=== PATIENT | male | born 1945 | race Native Hawaiian/Other Pacific Islander ===

== ENCOUNTER 2018-10-08 19:12 | Inpatient (IN) | payer MEDICARE, BC, SELFPAY ==
[2018-10-08] VITALS (9 sets, daily range): BP systolic 109–132; BP diastolic 68–91; PULSE 99–145; RESP 17–28; TEMP 36.9–37.5; O2SAT 89–98; BMI 31.6
--- NOTE | 2018-10-08 19:32 | DI.RAD.S_ITS ---
PROCEDURE: XR CHEST 1V INDICATIONS: chest pain TECHNIQUE: One view of the chest was acquired. COMPARISON: [facility], , CHEST 1 VIEW, 01/25/2018, 15:56. FINDINGS: Surgical changes and devices: Median sternotomy. Lungs and pleura: No pneumothorax. Small left pleural effusion. Moderate patchy air space opacity within the right mid and lower lung as well the left lung base. Mediastinum: Mediastinal contours appear normal. Heart size is normal. Bones and chest wall: No suspicious bony lesions. Overlying soft tissues appear unremarkable. IMPRESSION: 1. Multifocal pneumonia. Follow up plain films of the chest are recommended to ensure resolution, and to exclude underlying or central malignancy. Dictated by: Lewis Kapadia M.D. on 10/08/2018 at 19:57 Approved by: Lewis Kapadia M.D. on 10/08/2018 at 19:58
--- NOTE | 2018-10-08 19:50 | ED.SOB ---
HPI - SOB/Dyspnea General Chief Complaint: Shortness of Breath/Dyspnea Stated Complaint: SOB Time Seen by Provider: 10/08/18 19:43 Source: patient and family Mode of arrival: ambulatory Limitations: no limitations History of Present Illness Patient is a 73-year-old male with a significant coronary history also with history of pulmonary hypertension here for evaluation of approximately 2-3 days of dyspnea on exertion and coughing. Did have a fever a couple days ago greater than 101. No fever today. Has having a productive cough. No chest pain. He is in atrial fibrillation but states that he is in persistent AFib. States that he is currently taking his medications. Does not have home oxygen requirement. Related Data Home Medications Medication Instructions Recorded Confirmed oxycodone [OxyContin] 10 mg PO TID #0 03/24/17 10/08/18 potassium chloride [Klor-Con 8] 20 meq PO BID #0 03/24/17 10/08/18 warfarin [Coumadin] 2.5 mg PO QDAY #0 03/24/17 10/08/18 atorvastatin 80 mg tablet 80 mg PO DAILY 90 Days #90 tab 08/08/18 10/08/18 escitalopram 10 mg tablet 10 mg PO DAILY 90 Days #90 tab 08/08/18 10/08/18 furosemide 40 mg tablet 40 mg PO BID 90 Days #45 tab 08/08/18 10/08/18 metoprolol succinate ER 50 mg 50 mg PO BID 45 Days #90 tab 08/08/18 10/08/18 tablet,extended release 24 hr Allergies Allergy/AdvReac Type Severity Reaction Status Date / Time cyclobenzaprine Allergy Unknown Verified 08/08/18 11:17 [facility] Review of Systems Constitutional Reports fever(s) and Denies headache(s) ENT Ears, Nose, Mouth, and Throat: Denies headache(s) and Denies throat swelling Cardiovascular Denies chest pain, Denies leg edema, Reports dyspnea and Reports dyspnea on exertion Respiratory Reports dyspnea, Reports dyspnea on exertion and Denies wheezing Gastrointestinal Gastrointestinal: Denies abdominal pain and Denies change in bowel habits Genitourinary Denies dysuria and Denies flank pain Musculoskeletal Denies myalgias and Denies arthralgias Integumentary/Breasts Denies rash Neurologic Denies behavioral changes and Denies headache(s) Psychiatric Denies behavioral changes Hematologic/Lymphatic Comments: Currently taking Coumadin Allergic/Immunologic Denies throat swelling and Denies wheezing PFSH Medical History Atrial fibrillation, chronic (Acute) Coronary artery disease (Acute) 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) Former smoker, stopped smoking in distant past (Acute) History of pneumonia (Acute) Hyperlipidemia (Acute) Lumbar stenosis without neurogenic claudication (Acute) Pulmonary hypertension (Acute) Surgical History History of mitral valve replacement with mechanical valve (Acute) History of shoulder surgery (Acute) Status post coronary artery bypass graft (Acute) Social History household members: spouse Smoking Status: Former smoker Exam Initial Vital Signs Initial Vital Signs: Vital Signs Temperature 99.0 F 10/08/18 19:15 Pulse Rate 145 H 10/08/18 19:15 Respiratory Rate 28 H 10/08/18 19:15 Blood Pressure 132/84 10/08/18 19:15 Pulse Oximetry 89 L 10/08/18 19:15 Const General: cooperative, well developed, well groomed, No acute distress and ill appearing Orientation: alert, awake and oriented x3 HENMT Head: normal to inspection and normocephalic Resp Effort & Inspection: normal respiratory effort, cough, not labored, no pursed lip breathing, respiratory distress, no retractions, tachypneic, no tripod positioning and no use of accessory muscles Auscultation: rhonchi Cardio Rate: tachycardic Rhythm: abnormal rhythm irregularly irregular Heart Sounds: murmur Pulses: radial pulses present GI Inspection: non-distended Palpation: soft, No firm and No tender Back/Spine/Pelvis Back: No CVA tenderness Skin Lesions: no lesions Rashes: no rashes Other: Well-healed midline sternal surgical scar Neuro General: alert, awake and oriented x3 Cognition: normal cognition Speech: speech normal Extrem General: normal to inspection and capillary refill normal Psych Appearance: grossly normal and well kempt Course Orders Ordered: ED Orders 10/08/18 21:31 Education, smoking cessation ONGOING 10/08/18 21:40 Consult to Dietitian, Adult Routine 10/08/18 21:41 Consult to Discharge Planning Routine Consult to Physical Therapy Evaluate & Treat 10/08/18 21:43 Consult to Respiratory Therapy Evaluate & Treat 10/08/18 21:57 Sputum Induction and collectio Now 10/08/18 22:00 EKG-12 Lead Urgent 10/08/18 23:55 Lactate 4HR (Lactic Acid Rflx) Stat 10/09/18 05:00 Basic Metabolic Panel DAILY Complete Blood Count AUTO DIFF DAILY 10/10/18 05:00 Basic Metabolic Panel DAILY Complete Blood Count AUTO DIFF DAILY 10/11/18 05:00 Basic Metabolic Panel DAILY Complete Blood Count AUTO DIFF DAILY 10/12/18 05:00 Basic Metabolic Panel DAILY Complete Blood Count AUTO DIFF DAILY 10/13/18 05:00 Basic Metabolic Panel DAILY Complete Blood Count AUTO DIFF DAILY Acetaminophen (Tylenol) 650 mg PO Q6HR PRN PRN Reason: As Needed for Fever/Mild Pain Al Hydrox/Mg Hydrox/Simethicone (Maalox Plus) 30 ml PO Q6HR PRN PRN Reason: Dyspepsia Albuterol (Ventolin) 2.5 mg INH [id number] PRN PRN Reason: Shortness Of Breath Albuterol/Ipratropium (Duoneb) 3 ml INH [id number] [facility] Last Admin: 10/08/18 23:27 Dose: 3 ml Atorvastatin Calcium (Lipitor) 80 mg PO DAILY [facility] Bisacodyl (Dulcolax) 10 mg PO DAILY PRN PRN Reason: Constipation Calcium Carbonate (Tums) 1,000 mg PO Q4HR PRN PRN Reason: Dyspepsia Diltiazem HCl (Cardizem) 30 mg PO Q6HR [facility] Last Admin: 10/09/18 03:32 Dose: 30 mg Docusate Sodium (Colace) 100 mg PO BID [facility] Escitalopram Oxalate (Lexapro) 10 mg PO DAILY [facility] Furosemide (Lasix) 40 mg PO BID [facility] Last Admin: 10/08/18 23:53 Dose: 40 mg Sodium Chloride (Normal Saline 0.9%) 1,000 mls @ 125 mls/hr IV CONT [facility] Last Infusion: 10/09/18 01:47 Dose: 21 mls/hr Infusion: 10/08/18 21:51 Dose: 125 mls/hr Admin: 10/08/18 20:32 Dose: 125 mls/hr Meropenem 1 gm/ Sodium (Chloride) 100 mls @ 200 mls/hr IV Q12H [facility] Last Admin: 10/09/18 00:20 Dose: 200 mls/hr Metoprolol Succinate (Toprol Xl) 50 mg PO BID [facility] Last Admin: 10/08/18 23:51 Dose: 50 mg Naloxone HCl (Narcan) 0.2 mg IV Q2MIN PRN PRN Reason: Opiate Reversal Oxycodone HCl (Percolone) 10 mg PO Q6HR PRN PRN Reason: Pain, Severe (7-10) Last Admin: 10/09/18 00:11 Dose: 10 mg Potassium Chloride (Klor-Con M10) 10 meq PO BID [facility] Last Admin: 10/09/18 00:11 Dose: 10 meq Promethazine HCl (Phenadoz) 12.5 mg ME Q6HR PRN PRN Reason: Nausea And Vomiting Warfarin Sodium (Coumadin) 2.5 mg PO 1700 [facility] Warfarin Sodium (Coumadin) 1.25 mg PO 1700 [facility] Discontinued Medications Levofloxacin (Levaquin) 750 mg in 150 mls @ 100 mls/hr IV NOW ONE Stop: 10/08/18 21:19 Last Infusion: 10/08/18 21:29 Dose: 0 mls/hr Admin: 10/08/18 19:56 Dose: 100 mls/hr Piperacillin/Tazobactam/Dextrose (Zosyn) 4.5 gm in 100 mls @ 200 mls/hr IV NOW ONE Stop: 10/09/18 01:42 Last Admin: 10/09/18 01:49 Dose: 200 mls/hr Potassium Chloride (Klor-Con 8) 8 meq PO BID [facility] Last Admin: 10/09/18 01:37 Dose: Not Given Potassium Chloride (Klor-Con 8) 10 meq PO BID [facility] Last Admin: 10/09/18 01:38 Dose: Not Given Warfarin Sodium (Coumadin) 1.25 mg PO SEEINSTR [facility] Warfarin Sodium (Coumadin) 1.25 mg PO NOW ONE Stop: 10/09/18 00:16 Last Admin: 10/09/18 00:10 Dose: 1.25 mg Vital Signs - 8 hr 10/08/18 22:00 10/08/18 23:16 10/08/18 23:40 Temperature 98.4 F 99.5 F Pulse Rate 112 H 131 H Respiratory Rate 22 20 Blood Pressure 128/91 H 112/68 Pulse Oximetry 98 97 97 10/08/18 23:51 10/09/18 01:49 10/09/18 01:58 Temperature Pulse Rate 127 H 115 H Respiratory Rate Blood Pressure 122/68 134/92 H Pulse Oximetry 10/09/18 03:32 Temperature Pulse Rate 114 H Respiratory Rate Blood Pressure Pulse Oximetry MDM - SOB/Dyspnea Medical Records Attestation: I reviewed the patient's medical records. Lab Data Attestation: I reviewed the patient's lab results. Result diagrams: 10/08/18 19:45 10/08/18 19:45 Lab Results 10/08/18 10/08/18 10/08/18 Range/Units 19:45 19:45 19:45 WBC 9.5 (4.5-11.0) X10^3/uL RBC 4.45 L (4.5-5.9) X10^6/uL Hgb 12.4 L (13.5-17.5) g/dL Hct 38.2 L (41-53) % MCV 85.8 (80-100) fL MCH 27.8 (26-34) PG MCHC 32.4 (30-36) % RDW 17.0 H (11.6-14.8) % Plt Count 280 (150-400) X10^3/uL Neut % (Auto) 83.1 H (50-75) % Lymph % (Auto) 8.3 L (25-40) % [place] % (Auto) 8.2 (3-14) % Eos % (Auto) 0.2 L (2-4) % Baso % (Auto) 0.2 (0-2) % Neut # (Auto) 7900 H (2475-8144) /uL PT 26.3 H (10.1-12.7) SECONDS INR 2.3 H (0.9-1.3) APTT 51 H (26.4-36.2) SECONDS Sodium 138 (137-145) mmol/L Potassium 3.9 (3.4-5.1) mmol/L Chloride 100 (98-107) mmol/L Carbon Dioxide 25 (22-32) mmol/L BUN 20 (9-20) mg/dL Creatinine 1.40 H (0.66-1.25) mg/dL Estimated GFR 49.7 L (>60) mL/min BUN/Creatinine Ratio 14.3 (6-22) Glucose 157 H (80-110) mg/dL Lactate (0.7-2.1) mmol/L Calcium 8.5 (8.4-10.2) mg/dL Phosphorus (2.3-3.7) mg/dL Magnesium (1.6-2.3) mg/dL Total Bilirubin 0.8 (0.2-1.3) mg/dL AST 58 (17-59) IU/L ALT 28 (21-72) IU/L Alkaline Phosphatase 236 H (38-126) U/L Total Creatine Kinase 119 (55-170) U/L CK-MB (CK-2) 0.52 (<2.37) ng/mL CK-MB (CK-2) Rel Index 0.4 L (1.5-5.0) % Troponin I 0.013 (0.01-0.034) ng/mL B-Natriuretic Peptide 428 H (<100) Total Protein 8.0 (6.3-8.2) g/dL Albumin 3.9 (3.5-5.0) g/dL Globulin 4.1 (1.7-4.1) g/dL Albumin/Globulin Ratio 1.0 (1.0-2.8) Lipase 172 (23-300) U/L Procalcitonin (<0.5) ng/mL 10/08/18 10/08/18 10/08/18 Range/Units 19:45 19:45 19:45 WBC (4.5-11.0) X10^3/uL RBC (4.5-5.9) X10^6/uL Hgb (13.5-17.5) g/dL Hct (41-53) % MCV (80-100) fL MCH (26-34) PG MCHC (30-36) % RDW (11.6-14.8) % Plt Count (150-400) X10^3/uL Neut % (Auto) (50-75) % Lymph % (Auto) (25-40) % [place] % (Auto) (3-14) % Eos % (Auto) (2-4) % Baso % (Auto) (0-2) % Neut # (Auto) (4526-2796) /uL PT (10.1-12.7) SECONDS INR (0.9-1.3) APTT (26.4-36.2) SECONDS Sodium (137-145) mmol/L Potassium (3.4-5.1) mmol/L Chloride (98-107) mmol/L Carbon Dioxide (22-32) mmol/L BUN (9-20) mg/dL Creatinine (0.66-1.25) mg/dL Estimated GFR (>60) mL/min BUN/Creatinine Ratio (6-22) Glucose (80-110) mg/dL Lactate 2.2 H (0.7-2.1) mmol/L Calcium (8.4-10.2) mg/dL Phosphorus 3.9 H (2.3-3.7) mg/dL Magnesium 2.2 (1.6-2.3) mg/dL Total Bilirubin (0.2-1.3) mg/dL AST (17-59) IU/L ALT (21-72) IU/L Alkaline Phosphatase (38-126) U/L Total Creatine Kinase (55-170) U/L CK-MB (CK-2) (<2.37) ng/mL CK-MB (CK-2) Rel Index (1.5-5.0) % Troponin I (0.01-0.034) ng/mL B-Natriuretic Peptide (<100) Total Protein (6.3-8.2) g/dL Albumin (3.5-5.0) g/dL Globulin (1.7-4.1) g/dL Albumin/Globulin Ratio (1.0-2.8) Lipase (23-300) U/L Procalcitonin 0.32 (<0.5) ng/mL 10/08/18 Range/Units 23:55 WBC (4.5-11.0) X10^3/uL RBC (4.5-5.9) X10^6/uL Hgb (13.5-17.5) g/dL Hct (41-53) % MCV (80-100) fL MCH (26-34) PG MCHC (30-36) % RDW (11.6-14.8) % Plt Count (150-400) X10^3/uL Neut % (Auto) (50-75) % Lymph % (Auto) (25-40) % [place] % (Auto) (3-14) % Eos % (Auto) (2-4) % Baso % (Auto) (0-2) % Neut # (Auto) (2058-5073) /uL PT (10.1-12.7) SECONDS INR (0.9-1.3) APTT (26.4-36.2) SECONDS Sodium (137-145) mmol/L Potassium (3.4-5.1) mmol/L Chloride (98-107) mmol/L Carbon Dioxide (22-32) mmol/L BUN (9-20) mg/dL Creatinine (0.66-1.25) mg/dL Estimated GFR (>60) mL/min BUN/Creatinine Ratio (6-22) Glucose (80-110) mg/dL Lactate 1.2 (0.7-2.1) mmol/L Calcium (8.4-10.2) mg/dL Phosphorus (2.3-3.7) mg/dL Magnesium (1.6-2.3) mg/dL Total Bilirubin (0.2-1.3) mg/dL AST (17-59) IU/L ALT (21-72) IU/L Alkaline Phosphatase (38-126) U/L Total Creatine Kinase (55-170) U/L CK-MB (CK-2) (<2.37) ng/mL CK-MB (CK-2) Rel Index (1.5-5.0) % Troponin I (0.01-0.034) ng/mL B-Natriuretic Peptide (<100) Total Protein (6.3-8.2) g/dL Albumin (3.5-5.0) g/dL Globulin (1.7-4.1) g/dL Albumin/Globulin Ratio (1.0-2.8) Lipase (23-300) U/L Procalcitonin (<0.5) ng/mL Imaging Data Chest x-ray: Radiologist's impression: [address] [address] XRay Report Signed Patient: Alan Patricio MR#: [id number] : 1945 Acct:[id number] Age/Sex: 73 / M Date of Service: 10/08/18 Loc: ED Accession Number: [id number] Procedure: XR chest 1V Ordering Provider: Claribel Shields D.O. PROCEDURE: XR CHEST 1V INDICATIONS: chest pain TECHNIQUE: One view of the chest was acquired. COMPARISON: [facility], CR, CHEST 1 VIEW, 01/25/2018, 15:56. FINDINGS: Surgical changes and devices: Median sternotomy. Lungs and pleura: No pneumothorax. Small left pleural effusion. Moderate patchy air space opacity within the right mid and lower lung as well the left lung base. Mediastinum: Mediastinal contours appear normal. Heart size is normal. Bones and chest wall: No suspicious bony lesions. Overlying soft tissues appear unremarkable. IMPRESSION: 1. Multifocal pneumonia. Follow up plain films of the chest are recommended to ensure resolution, and to exclude underlying or central malignancy. Dictated by: Lewis Kapadia M.D. on 10/08/2018 at 19:57 Approved by: Lewis Kapadia M.D. on 10/08/2018 at 19:58 ECG Data Attestation: I personally reviewed and interpreted this ECG as follows: Prior ECG tracings: not available for review Interpretation: AFib with RVR Nonspecific ST T wave changes Normal axis MDM Narrative Medical decision making narrative: Patient hypoxic to the high 80s upon arrival which did improve with oxygen by nasal cannula. His chest x-ray is concerning for multifocal pneumonia which does fit his clinical presentation any fevers a couple days ago. Patient lactate is elevated however procalcitonin is negative. Does not have an elevated white blood cell count. Blood cultures were obtained. Antibiotics ordered to cover for pneumonia. Patient does not meet criteria for healthcare associated pneumonia. Patient has never been hypotensive. Tachycardic is secondary to his atrial fibrillation and I suspect that he is tachycardic because of the pneumonia. Patient was not given the 30 cc/kilos secondary to his history of pulmonary hypertension and also the lack of any hypotension. Discussed the case with SABRINA Alexander who is the night hospitalist to admit the patient for further evaluation and treatment. Discussed the admission with the patient and his was at bedside they both expressed understanding and agreement. Discharge Plan Departure Patient Disposition: Admitted As Inpatient Clinical Impression: Pneumonia, A-fib Discharge Date/Time: 10/08/18 21:52 Interventions: ED Discharge Assessment Last Done: 10/08/18 21:52 Admit Date/Time: 10/08/18 21:33 Admit Provider: Santi Alexander
[2018-10-08 19:55] LABS: Add Manual Diff / Slide Review NO; Basophils Percent Auto 0.2 % (0-2); Eosinophils Percent Auto 0.2 % (2-4); Hematocrit 38.2 % (41-53); Hemoglobin 12.4 g/dL (13.5-17.5); Lymphocytes Percent Auto 8.3 % (25-40); Mean Corpuscular HGB Conc 32.4 % (30-36); Mean Corpuscular Hemoglobin 27.8 PG (26-34); Mean Corpuscular Volume 85.8 fL (80-100); Monocytes Percent Auto 8.2 % (3-14); Neutrophils Absolute Auto 7900 /uL (1500-7000); Neutrophils Percent Auto 83.1 % (50-75); Platelet Count 280 X10^3/uL (150-400); Red Blood Cell Count 4.45 X10^6/uL (4.5-5.9); White Blood Cell Count 9.5 X10^3/uL (4.5-11.0)
[2018-10-08] MEDS: levoFLOXacin 750 MG/150 ML PIGGYBACK 100 MG IV (19:56)
[2018-10-08 20:00] LABS: INR 2.3 (0.9-1.3); Prothrombin Time 26.3 SECONDS (10.1-12.7)
[2018-10-08 20:02] LABS: PTT Partial Thromboplastin Tim 51 SECONDS (26.4-36.2)
[2018-10-08 20:07] LABS: Alanine Aminotransferase 28 IU/L (21-72); Albumin 3.9 g/dL (3.5-5.0); Alkaline Phosphatase 236 U/L (38-126); Aspartate Aminotransferase 58 IU/L (17-59); BUN Creatinine Ratio 14.3 (6-22); Bilirubin Total 0.8 mg/dL (0.2-1.3); Blood Urea Nitrogen 20 mg/dL (9-20); Calcium 8.5 mg/dL (8.4-10.2); Carbon Dioxide 25 mmol/L (22-32); Chloride 100 mmol/L (98-107); Creatine Kinase 119 U/L (55-170); Estimated Glomerular Filt Rate 49.7 mL/min (>60); Globulin 4.1 g/dL (1.7-4.1); Glucose 157 mg/dL (80-110); HEMOLYSIS < 15 (0-50); Lipase 172 U/L (23-300); Potassium 3.9 mmol/L (3.4-5.1); Sodium 138 mmol/L (137-145)
[2018-10-08 20:08] LABS: Lactate (Lactic Acid) 2.2 mmol/L (0.7-2.1)
[2018-10-08 20:16] LABS: B Type Natriuretic Peptide 428 (<100)
[2018-10-08 20:19] LABS: Troponin I 0.013 ng/mL (0.01-0.034)
[2018-10-08 20:22] LABS: CKMB % Relative Index 0.4 % (1.5-5.0); Creatine Kinase MB 0.52 ng/mL (<2.37)
[2018-10-08 20:23] LABS: Procalcitonin 0.32 ng/mL (<0.5)
[2018-10-08] MEDS: SODIUM CHLORIDE 0.9% 1,000 ML 125 ML IV (20:32)
[2018-10-08 22:43] LABS: Magnesium 2.2 mg/dL (1.6-2.3); Phosphorous 3.9 mg/dL (2.3-3.7)
--- NOTE | 2018-10-08 22:50 | PM.HP.1 ---
History of Present Illness Date Patient Seen: 10/08/18 Time Patient Seen: 20:15 Chief complaint: SOB Narrative: This is a 73-year-old male patient with past medical history of coronary artery disease status post stent placement, atrial fibrillation on Coumadin hypertension and history of pneumonia x3 last episode in 2016 a past smoker who presents today for shortness of breath increasing over the last 4-5 days becoming much worse the last 2 days. The patient is seen bedside with his Jerrica, Patient recently returned from a trip to [place] where he reports having cold with head congestion that has progressed with increasing productive cough, dyspnea and began having fevers chills reporting a fever over 101 last night. He has had a positive cough has been productive and reports audible rattling in his chest. He has had no chest pain and has dyspnea at baseline being unable to ascend a flight of stairs without shortness of breath. Reports now that he cannot walk across the room without dyspnea. Patient to [facility] has a history of coronary artery disease and has undergone bypass grafting. Has a history of atrial fibrillation that is chronic and a history of mitral valve replacement with a mechanical valve. He is on warfarin without complaints of untoward bleeding or bruising. He has a history of pulmonary artery hypertension documented on echo on 01 16 2018 S being a PA pressure of 70 mmHg. He distally has a history of neurologic claudication bilateral lower extremities related to spinal stenosis and has been under treatment for pain management. He had a headache transiently 2 days ago but denies further head congestion or sore throat. He denies nausea or vomiting, abdominal pain and reports no difficulty with bowel or bladder. He is on Lasix and reports nocturia 2-3 times nightly. Patient History Medical History Atrial fibrillation, chronic (Acute) Coronary artery disease (Acute) Current use of jail anticoagulation (Acute) Former smoker, stopped smoking in distant past (Acute) History of pneumonia (Acute) Hyperlipidemia (Acute) Lumbar stenosis without neurogenic claudication (Acute) Pulmonary hypertension (Acute) Surgical History History of mitral valve replacement with mechanical valve (Acute) History of shoulder surgery (Acute) Status post coronary artery bypass graft (Acute) Comment: Family & Social History Social History: household members spouse Prior Living Arrangements House Safety & Behavioral: Feels Safe in Current Yes Environment Been Physically Hurt or No Threatened By a Person Suicidal Ideation Description None Tobacco & Substance use: Smoking Status Former smoker alcohol intake frequency 0-2 drinks per day Substance Use Type does not use Comment: The patient is and lives in a single level single family home with his Jerrica. His parents are both . He has 4 siblings 2 in good health, 1 with multiple CVAs and another with cardiovascular and pulmonary disease. Meds Home Medications Medication Instructions Recorded Confirmed Type oxycodone [OxyContin] 10 mg PO TID #0 03/24/17 10/08/18 History potassium chloride [Klor-Con 8] 20 meq PO BID #0 03/24/17 10/08/18 History warfarin [Coumadin] 2.5 mg PO QDAY #0 03/24/17 10/08/18 History atorvastatin 80 mg tablet 80 mg PO DAILY 90 Days #90 tab 08/08/18 10/08/18 History escitalopram 10 mg tablet 10 mg PO DAILY 90 Days #90 tab 08/08/18 10/08/18 History furosemide 40 mg tablet 40 mg PO BID 90 Days #45 tab 08/08/18 10/08/18 History metoprolol succinate ER 50 mg 50 mg PO BID 45 Days #90 tab 08/08/18 10/08/18 History tablet,extended release 24 hr Allergies Allergy/AdvReac Type Severity Reaction Status Date / Time cyclobenzaprine Allergy Unknown Verified 08/08/18 11:17 [facility] Review of Systems Review of Systems Constitutional: Positive fevers and chills, fatigue and poor appetite, Denies sweats, stable weight Eyes: Denies visual changes, denies floaters, diplopia ENT: Positive transient headache now resolved, Denies hearing changes, ear pain, no nasal congestion, rhinorrhea, no dysphagia, sore throat or dentalgia, no neck stiffness or pain Respiratory: Positive for exertional dyspnea, cough, chest rattling, Denies hemoptysis or wheezing Cardiovascular: Positive for coronary artery disease and bypass surgery, pulmonary artery hypertension, Denies chest pain, palpitations, orthostatic dizziness, syncope, edema Gastrointestinal: Denies abdominal pain, nausea or vomiting, no reflux or bloating, constipation or diarrhea, denies blood in stool. Genitourinary: Positive for nocturia 2-3 times nightly, taking Lasix, denies penile discharge, no complains of weak stream or dribbling, frequency, burning or urgency, hematuria on voiding Musculoskeletal: Positive for chronic low back pain right shoulder surgery, denies falls, weakness, limited movement, cramps, edema, myalgia, arthralgia or joint swelling. Integumentary: denies skin bruising, lesions, masses, rashes, hives, itching or hair loss Neurological: Positive for weakness bilateral legs, denies dizziness, confusion, numbness or tingling, speech difficulties or seizures Psychiatric: denies disturbances in thought, attentions or mood, denies substance abuse Endocrine: denies goiter, lethargy, abnormal sweating, and heat/cold intolerance. Heme/lymph: Denies lymphadenopathy, abnormal bleeding or bruising Exam Vital Signs (past 8 hours): - 10/08/18 19:15 10/08/18 19:31 10/08/18 20:00 Temperature 99.0 F 99.0 F Pulse Rate 145 H 145 H 126 H Respiratory Rate 28 H 28 H 18 Blood Pressure 132/84 132/84 Blood Pressure [Right Arm] 118/88 Pulse Oximetry 89 L 89 L 94 10/08/18 20:30 10/08/18 21:15 10/08/18 22:00 Temperature 98.4 F Pulse Rate 101 H 99 H 112 H Respiratory Rate 18 17 22 Blood Pressure 128/91 H Blood Pressure [Right Arm] 109/69 115/68 Pulse Oximetry 95 97 98 Oxygen Delivery Method Nasal Cannula Oxygen Flow Rate 2 Narrative Exam Narrative: General: Well developed, obese male, BMI 31.6, with audible rhonchi, respiratory compromise Skin: Warm, dry, pink, no rashes, no visible lesions or bruising HEENT: Normocephalic, PERRLA, EOMs intact without nystagmus, conjunctiva moist, sclera is anicteric, no ear pain, hearing grossly, right frontal sinus tenderness to percussion, no rhinorrhea, oropharynx is moist and pink without lesions or exudate, posterior pharynx without inflammation, no lymphadenopathy Neck: Supple, no masses, thyroid non tender without thyromegaly or nodules, trachea midline, no carotid bruits, mild JVD Cardiac: irregularly irregular rhythm, S1-S2, click left sternal boarder, 1/6 systolic murmur, no gallops or rubs, 2+ radial pulse, 1+ dorsalis pedis pulse, no edema Chest: Symmetrical movement, breathing shallow, non labored, no accessory muscle use, prolonged expiratory phase, wet cough present, BS are coarse throughout with scattered wheezing Abdomen: Soft, round tympanic upper and dull lower abdomen to percussion, no tenderness or guarding, no masses or organomegaly, no flank or suprapubic pain, BS normal. Back: Normal curvature, lumbar spine tenderness to palpation, no palpable muscle spasms, no CVA tenderness on percussion Extremities: Full ROM, no synovial effusions or deformities, strength 5/5 and symmetrical, stable gait Neuro: AAOx4, cranial nerves II-XII grossly intact, distal sensation intact to light touch, no paresthesias Psych: pleasant, thought coherent, stable mood and congruent affect Objective Labs Result Diagrams: 10/08/18 19:45 10/08/18 19:45 Labs: Laboratory Results - last 24 hr 10/08/18 10/08/18 10/08/18 19:45 19:45 19:45 WBC 9.5 RBC 4.45 L Hgb 12.4 L Hct 38.2 L MCV 85.8 MCH 27.8 MCHC 32.4 RDW 17.0 H Plt Count 280 Neut % (Auto) 83.1 H Lymph % (Auto) 8.[address] [place] % (Auto) 8.2 Eos % (Auto) 0.2 L Baso % (Auto) 0.2 Neut # (Auto) 7900 H PT 26.3 H INR 2.3 H APTT 51 H Sodium 138 Potassium 3.9 Chloride 100 Carbon Dioxide 25 BUN 20 Creatinine 1.40 H Estimated GFR 49.7 L BUN/Creatinine Ratio 14.3 Glucose 157 H Lactate Calcium 8.5 Phosphorus Magnesium Total Bilirubin 0.8 AST 58 ALT 28 Alkaline Phosphatase 236 H Total Creatine Kinase 119 CK-MB (CK-2) 0.52 CK-MB (CK-2) Rel Index 0.4 L Troponin I 0.013 B-Natriuretic Peptide 428 H Total Protein 8.0 Albumin 3.9 Globulin 4.1 Albumin/Globulin Ratio 1.0 Lipase 172 Procalcitonin 10/08/18 10/08/18 10/08/18 19:45 19:45 19:45 WBC RBC Hgb Hct MCV MCH MCHC RDW Plt Count Neut % (Auto) Lymph % (Auto) [facility] % (Auto) Eos % (Auto) Baso % (Auto) Neut # (Auto) PT INR APTT Sodium Potassium Chloride Carbon Dioxide BUN Creatinine Estimated GFR BUN/Creatinine Ratio Glucose Lactate 2.2 H Calcium Phosphorus 3.9 H Magnesium 2.2 Total Bilirubin AST ALT Alkaline Phosphatase Total Creatine Kinase CK-MB (CK-2) CK-MB (CK-2) Rel Index Troponin I B-Natriuretic Peptide Total Protein Albumin Globulin Albumin/Globulin Ratio Lipase Procalcitonin 0.32 PATIENT NAME: MUNIRA RUIZ : 1945 EXAM DATE: 10/08/2018 20:[address] YARELIS HALE DO CC: RAGHU MARINA M.D. MODALITY: CR PATIENT TYPE: ER CONTRAST MEDIA: STATION ID: [id number] FLUORO TIME: PROCEDURE: XR CHEST 1V INDICATIONS: chest pain TECHNIQUE: One view of the chest was acquired. COMPARISON: [facility], , CHEST 1 VIEW, 01/25/2018, 15:56. FINDINGS: Surgical changes and devices: Median sternotomy. Lungs and pleura: No pneumothorax. Small left pleural effusion. Moderate patchy air space opacity within the right mid and lower lung as well the left lung base. Mediastinum: Mediastinal contours appear normal. Heart size is normal. Bones and chest wall: No suspicious bony lesions. Overlying soft tissues appear unremarkable. IMPRESSION: 1. Multifocal pneumonia. Follow up plain films of the chest are recommended to ensure resolution, and to exclude underlying or central malignancy. Dictated by: Lewis Kapadia M.D. on 10/08/2018 at 19:57 Approved by: Lewis Kapadia M.D. on 10/08/2018 at 19:58 + + :Name: MUNIRA RUIZ Study Date: 01/17/2018 Height: 67 in : :[facility] Weight: 233 lb : : Gender: Male BSA: 2.2 m2 : :: 1945 Age: 72 yrs BP: 140/92 mmHg: :Reason For Study: Dyspnea on exertion : :History: CAD,Mechanical mitral valve : :Ordering Physician: Radhika : :Christine Mike Performed By: Slime Thornton : + + Interpretation Summary 1) Mild to moderate concentric left ventricular hypertrophy with normal size, wall motion, and systolic function (EF 55-60%). 2) Mildly dilated right ventricle with mild to moderately reduced function. 3) Mechanical mitral valve present, opens well. Mild to moderate intravalvular regurgitation present. 4) Moderate tricuspid regurgitation present. 5) Pulmonary hypertension present, estimated systolic pulmonary pressures of 78mmHg. Previous RVSP was 70mmHg. 6) Compared to the Echo done 10/31/2016, no significant change. Assessment & Plan Plan: Assessment/Plan Narrative: 1. Pneumonia -multifocal pneumonia by chest x-ray -scattered coarseness with audible rhonchi and wheezing -prolonged expiratory phase -respiratory PCR identifies Serratia and Enterobacteriaceae -past history of nosocomial infection when he had his MVR requireing PICC placement and jail antibiotics -will cover the patient with meropenem 1 g IV Q 12 -will discontinue Levaquin due to warfarin interaction and will start Zosyn 4.5 gms IV Q6H. -sputum ordered for culture and sensitivity -albuterol and ipratropium nebulizers Q 4 and as needed -continuous pulse ox 2. Atrial fibrillation, present on admission, active -very low heart rate with heart rate elevated to 130s while in the ER, decreased to 100 during examination -no complaints of chest pain, denies palpitations -will continue metoprolol 50 mg extended release twice daily for rate control. 3. Long-term anticoagulation -patient's warfarin regimen is 2.5 mg Sunday, Sunday, Sunday, Sunday and Sunday, 1.5 mg on Tuesdays and . -INR on admission is therapeutic at 2.3 -no complaints of untoward bleeding or bruising 4. Pulmonary artery hypertension -chronic shortness of breath, cannot have sent a flight of stairs at baseline -echocardiogram 01/17/2018 identifies [id number] right ventricle hypertrophy with an estimated pulmonary artery pressure of 70 mmHg -no significant JVD on exam, no peripheral swelling -will continue Lasix 40 mg daily 5. Chronic renal failure stage 3, active, stable -patient with BUN of 20 creatinine 1.4 with an EGFR 49.7. Review of past labs demonstrate creatinine between 1.3 and 1.5 -calculated creatinine clearance is 66.47 ml/min -Will monitor renal function 6. Chronic low back pain -history of lumbar stenosis with neuropathic claudication -Under pain management, will continue oxycodone 10 mg TID. -altered gait, using no accessory for ambulation -physical therapy to evaluate and treat
--- NOTE | 2018-10-08 22:54 | P.HP_ITS ---
History of Present Illness Date Patient Seen: 10/08/18 Time Patient Seen: 20:15 Chief complaint: SOB Narrative: This is a 73-year-old male patient with past medical history of coronary artery disease status post stent placement, atrial fibrillation on Coumadin hypertension and history of pneumonia x3 last episode in 2016 a past smoker who presents today for shortness of breath increasing over the last 4-5 days becoming much worse the last 2 days. The patient is seen bedside with his Jerrica, Patient recently returned from a trip to [place] where he reports having cold with head congestion that has progressed with increasing productive cough, dyspnea and began having fevers chills reporting a fever over 101 last night. He has had a positive cough has been productive and reports audible rattling in his chest. He has had no chest pain and has dyspnea at baseline being unable to ascend a flight of stairs without shortness of breath. Reports now that he cannot walk across the room without dyspnea. Patient to [facility] has a history of coronary artery disease and has undergone bypass grafting. Has a history of atrial fibrillation that is chronic and a history of mitral valve replacement with a mechanical valve. He is on warfarin without complaints of untoward bleeding or bruising. He has a history of pulmonary artery hypertension documented on echo on 01 16 2018 S being a PA pressure of 70 mmHg. He distally has a history of neurologic claudication bilateral lower extremities related to spinal stenosis and has been under treatment for pain management. He had a headache transiently 2 days ago but denies further head congestion or sore throat. He denies nausea or vomiting, abdominal pain and reports no difficulty with bowel or bladder. He is on Lasix and reports nocturia 2-3 times nightly. Patient History Medical History Atrial fibrillation, chronic (Acute) Coronary artery disease (Acute) Current use of prison anticoagulation (Acute) Former smoker, stopped smoking in distant past (Acute) History of pneumonia (Acute) Hyperlipidemia (Acute) Lumbar stenosis without neurogenic claudication (Acute) Pulmonary hypertension (Acute) Surgical History History of mitral valve replacement with mechanical valve (Acute) History of shoulder surgery (Acute) Status post coronary artery bypass graft (Acute) Comment: Family & Social History Social History: household members spouse Prior Living Arrangements House Safety & Behavioral: Feels Safe in Current Yes Environment Been Physically Hurt or No Threatened By a Person Suicidal Ideation Description None Tobacco & Substance use: Smoking Status Former smoker alcohol intake frequency 0-2 drinks per day Substance Use Type does not use Comment: The patient is and lives in a single level single family home with his Jerrica. His parents are both . He has 4 siblings 2 in good health, 1 with multiple CVAs and another with cardiovascular and pulmonary disease. Meds Home Medications Medication Instructions Recorded Confirmed Type oxycodone [OxyContin] 10 mg PO TID #0 03/24/17 10/08/18 History potassium chloride [Klor-Con 8] 20 meq PO BID #0 03/24/17 10/08/18 History warfarin [Coumadin] 2.5 mg PO QDAY #0 03/24/17 10/08/18 History atorvastatin 80 mg tablet 80 mg PO DAILY 90 Days #90 tab 08/08/18 10/08/18 History escitalopram 10 mg tablet 10 mg PO DAILY 90 Days #90 tab 08/08/18 10/08/18 History furosemide 40 mg tablet 40 mg PO BID 90 Days #45 tab 08/08/18 10/08/18 History metoprolol succinate ER 50 mg 50 mg PO BID 45 Days #90 tab 08/08/18 10/08/18 History tablet,extended release 24 hr Allergies Allergy/AdvReac Type Severity Reaction Status Date / Time cyclobenzaprine Allergy Unknown Verified 08/08/18 11:17 [facility] Review of Systems Review of Systems Constitutional: Positive fevers and chills, fatigue and poor appetite, Denies sweats, stable weight Eyes: Denies visual changes, denies floaters, diplopia ENT: Positive transient headache now resolved, Denies hearing changes, ear pain , no nasal congestion, rhinorrhea, no dysphagia, sore throat or dentalgia, no neck stiffness or pain Respiratory: Positive for exertional dyspnea, cough, chest rattling, Denies hemoptysis or wheezing Cardiovascular: Positive for coronary artery disease and bypass surgery, pulmonary artery hypertension, Denies chest pain, palpitations, orthostatic dizziness, syncope, edema Gastrointestinal: Denies abdominal pain, nausea or vomiting, no reflux or bloating, constipation or diarrhea, denies blood in stool. Genitourinary: Positive for nocturia 2-3 times nightly, taking Lasix, denies penile discharge, no complains of weak stream or dribbling, frequency, burning or urgency, hematuria on voiding Musculoskeletal: Positive for chronic low back pain right shoulder surgery, denies falls, weakness, limited movement, cramps, edema, myalgia, arthralgia or joint swelling. Integumentary: denies skin bruising, lesions, masses, rashes, hives, itching or hair loss Neurological: Positive for weakness bilateral legs, denies dizziness, confusion , numbness or tingling, speech difficulties or seizures Psychiatric: denies disturbances in thought, attentions or mood, denies substance abuse Endocrine: denies goiter, lethargy, abnormal sweating, and heat/cold intolerance. Heme/lymph: Denies lymphadenopathy, abnormal bleeding or bruising Exam Vital Signs (past 8 hours): - 10/08/18 19:15 10/08/18 19:31 10/08/18 20:00 Temperature 99.0 F 99.0 F Pulse Rate 145 H 145 H 126 H Respiratory Rate 28 H 28 H 18 Blood Pressure 132/84 132/84 Blood Pressure [Right Arm] 118/88 Pulse Oximetry 89 L 89 L 94 10/08/18 20:30 10/08/18 21:15 10/08/18 22:00 Temperature 98.4 F Pulse Rate 101 H 99 H 112 H Respiratory Rate 18 17 22 Blood Pressure 128/91 H Blood Pressure [Right Arm] 109/69 115/68 Pulse Oximetry 95 97 98 Oxygen Delivery Method Nasal Cannula Oxygen Flow Rate 2 Narrative Exam Narrative: General: Well developed, obese male, BMI 31.6, with audible rhonchi, respiratory compromise Skin: Warm, dry, pink, no rashes, no visible lesions or bruising HEENT: Normocephalic, PERRLA, EOMs intact without nystagmus, conjunctiva moist, sclera is anicteric, no ear pain, hearing grossly, right frontal sinus tenderness to percussion, no rhinorrhea, oropharynx is moist and pink without lesions or exudate, posterior pharynx without inflammation, no lymphadenopathy Neck: Supple, no masses, thyroid non tender without thyromegaly or nodules, trachea midline, no carotid bruits, mild JVD Cardiac: irregularly irregular rhythm, S1-S2, click left sternal boarder, 1/6 systolic murmur, no gallops or rubs, 2+ radial pulse, 1+ dorsalis pedis pulse, no edema Chest: Symmetrical movement, breathing shallow, non labored, no accessory muscle use, prolonged expiratory phase, wet cough present, BS are coarse throughout with scattered wheezing Abdomen: Soft, round tympanic upper and dull lower abdomen to percussion, no tenderness or guarding, no masses or organomegaly, no flank or suprapubic pain, BS normal. Back: Normal curvature, lumbar spine tenderness to palpation, no palpable muscle spasms, no CVA tenderness on percussion Extremities: Full ROM, no synovial effusions or deformities, strength 5/5 and symmetrical, stable gait Neuro: AAOx4, cranial nerves II-XII grossly intact, distal sensation intact to light touch, no paresthesias Psych: pleasant, thought coherent, stable mood and congruent affect Objective Labs Result Diagrams: 10/08/18 19:45 10/08/18 19:45 Labs: Laboratory Results - last 24 hr 10/08/18 10/08/18 10/08/18 19:45 19:45 19:45 WBC 9.5 RBC 4.45 L Hgb 12.4 L Hct 38.2 L MCV 85.8 MCH 27.8 MCHC 32.4 RDW 17.0 H Plt Count 280 Neut % (Auto) 83.1 H Lymph % (Auto) 8.3 L Sublette % (Auto) 8.2 Eos % (Auto) 0.2 L Baso % (Auto) 0.2 Neut # (Auto) 7900 H PT 26.3 H INR 2.3 H APTT 51 H Sodium 138 Potassium 3.9 Chloride 100 Carbon Dioxide 25 BUN 20 Creatinine 1.40 H Estimated GFR 49.7 L BUN/Creatinine Ratio 14.3 Glucose 157 H Lactate Calcium 8.5 Phosphorus Magnesium Total Bilirubin 0.8 AST 58 ALT 28 Alkaline Phosphatase 236 H Total Creatine Kinase 119 CK-MB (CK-2) 0.52 CK-MB (CK-2) Rel Index 0.4 L Troponin I 0.013 B-Natriuretic Peptide 428 H Total Protein 8.0 Albumin 3.9 Globulin 4.1 Albumin/Globulin Ratio 1.0 Lipase 172 Procalcitonin 10/08/18 10/08/18 10/08/18 19:45 19:45 19:45 WBC RBC Hgb Hct MCV MCH MCHC RDW Plt Count Neut % (Auto) Lymph % (Auto) Sublette % (Auto) Eos % (Auto) Baso % (Auto) Neut # (Auto) PT INR APTT Sodium Potassium Chloride Carbon Dioxide BUN Creatinine Estimated GFR BUN/Creatinine Ratio Glucose Lactate 2.2 H Calcium Phosphorus 3.9 H Magnesium 2.2 Total Bilirubin AST ALT Alkaline Phosphatase Total Creatine Kinase CK-MB (CK-2) CK-MB (CK-2) Rel Index Troponin I B-Natriuretic Peptide Total Protein Albumin Globulin Albumin/Globulin Ratio Lipase Procalcitonin 0.32 PATIENT NAME: MUNIRA RUIZ : 1945 EXAM DATE: 10/08/2018 20:[address] YARELIS HALE DO CC: RAGHU MARINA M.D. MODALITY: CR PATIENT TYPE: ER CONTRAST MEDIA: STATION ID: [id number] FLUORO TIME: PROCEDURE: XR CHEST 1V INDICATIONS: chest pain TECHNIQUE: One view of the chest was acquired. COMPARISON: [facility], , CHEST 1 VIEW, 01/25/2018, 15:56. FINDINGS: Surgical changes and devices: Median sternotomy. Lungs and pleura: No pneumothorax. Small left pleural effusion. Moderate patchy air space opacity within the right mid and lower lung as well the left lung base. Mediastinum: Mediastinal contours appear normal. Heart size is normal. Bones and chest wall: No suspicious bony lesions. Overlying soft tissues appear unremarkable. IMPRESSION: 1. Multifocal pneumonia. Follow up plain films of the chest are recommended to ensure resolution, and to exclude underlying or central malignancy. Dictated by: Lewis Kapadia M.D. on 10/08/2018 at 19:57 Approved by: Lewis Kapadia M.D. on 10/08/2018 at 19:58 + + :Name: MUNIRA RUIZ Study Date: 01/17/2018 Height: 67 in : :[facility] Weight: 233 lb : : Gender: Male BSA: 2.2 m2 : :: 1945 Age: 72 yrs BP: 140/92 mmHg: :Reason For Study: Dyspnea on exertion : :History: CAD,Mechanical mitral valve : :Ordering Physician: Radhika : :Christine Mike Performed By: Slime Thornton : + + Interpretation Summary 1) Mild to moderate concentric left ventricular hypertrophy with normal size, wall motion, and systolic function (EF 55-60%). 2) Mildly dilated right ventricle with mild to moderately reduced function. 3) Mechanical mitral valve present, opens well. Mild to moderate intravalvular regurgitation present. 4) Moderate tricuspid regurgitation present. 5) Pulmonary hypertension present, estimated systolic pulmonary pressures of 78mmHg. Previous RVSP was 70mmHg. 6) Compared to the Echo done 10/31/2016, no significant change. Assessment & Plan Plan: Assessment/Plan Narrative: 1. 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 -sputum ordered for culture and sensitivity -albuterol and ipratropium nebulizers Q 4 and as needed -continuous pulse ox 2. Atrial fibrillation, present on admission, active -very low heart rate with heart rate elevated to 130s while in the ER, decreased to 100 during examination -no complaints of chest pain, denies palpitations -will continue metoprolol 50 mg extended release twice daily for rate control. 3. Long-term anticoagulation -patient's warfarin regimen is 2.5 mg Sunday, Sunday, Sunday, Sunday and Sunday, 1.5 mg on Tuesdays and . -INR on admission is therapeutic at 2.3 -no complaints of untoward bleeding or bruising 4. Pulmonary artery hypertension -chronic shortness of breath, cannot have sent a flight of stairs at baseline -echocardiogram 01/17/2018 identifies [id number] right ventricle hypertrophy with an estimated pulmonary artery pressure of 70 mmHg -no significant JVD on exam, no peripheral swelling -will continue Lasix 40 mg daily 5. Chronic renal failure stage 3, active, stable -patient with BUN of 20 creatinine 1.4 with an EGFR 49.7. Review of past labs demonstrate creatinine between 1.3 and 1.5 -calculated creatinine clearance is 66.47 ml/min -Will monitor renal function 6. Chronic low back pain -history of lumbar stenosis with neuropathic claudication -Under pain management, will continue oxycodone 10 mg TID. -altered gait, using no accessory for ambulation -physical therapy to evaluate and treat
--- NOTE | 2018-10-08 23:23 | PC.NURSE ---
Patient transferred to floor from ER with O2 3 L=92%; course breathing audible to ear, wheezing; no cough; shortness of breath at rest; 1+ edema to bilateral feet, heart murmur; tele active; in room; medications not verified by ; this RN called and was notified that has had a power outage and is experiencing delays with computer rebooting; medications in drawer; night RN notified of delay
[2018-10-08] MEDS: ALBUTEROL/IPRATROPIUM 3 ML AMPUL INH (23:27)
[2018-10-08 23:49] LABS: Reflexed Lactate in 2 Hours Y
[2018-10-08] MEDS: METOPROLOL ER 50 MG TABLET PO (23:51)
[2018-10-08] MEDS: FUROSEMIDE 40 MG TABLET PO (23:53)
[2018-10-09] VITALS (16 sets, daily range): BP systolic 102–134; BP diastolic 50–92; PULSE 77–126; RESP 12–22; TEMP 36.7–37.8; O2SAT 87–98
[2018-10-09] MEDS: WARFARIN 2.5 MG TABLET 1.25 MG PO (00:10)
[2018-10-09] MEDS: OXYCODONE IR 10 MG TABLET PO ×3 (00:11→20:15)
[2018-10-09] MEDS: POTASSIUM CHLORIDE 10 MEQ TAB PO ×3 (00:11→20:05)
[2018-10-09 00:13] LABS: Lactate 2HR (Lactic Acid Rflx) 1.2 mmol/L (0.7-2.1)
[2018-10-09] MEDS: MEROPENEM 1 GM in SODIUM CHLORIDE 0.9% 100 ML 200 ML IV (00:20)
[2018-10-09] MEDS: PIPERACILLIN-TAZO 4.5 GM/100 ML FROZ.PIGGY IV (01:49)
[2018-10-09] MEDS: dilTIAZem 30 MG TABLET PO ×2 (03:32→08:48)
--- NOTE | 2018-10-09 04:45 | PC.NURSE ---
pt's current HR 86-102. It was 94-140's before his cardizem. pt is 1pa w/urinal. urine is dark ricci. cont pulse ox, 93% on 2L. LS: coarse, crackles and ronchi. call light in reach. bed alarm active. family at bedside.
[2018-10-09 05:49] LABS: Add Manual Diff / Slide Review NO; Basophils Percent Auto 0.3 % (0-2); Eosinophils Percent Auto 0.4 % (2-4); Lymphocytes Percent Auto 7.8 % (25-40); Mean Corpuscular HGB Conc 32.5 % (30-36); Mean Corpuscular Hemoglobin 27.9 PG (26-34); Mean Corpuscular Volume 85.8 fL (80-100); Monocytes Percent Auto 8.2 % (3-14); Neutrophils Absolute Auto 7300 /uL (1500-7000); Neutrophils Percent Auto 83.3 % (50-75); Platelet Count 255 X10^3/uL (150-400); Red Blood Cell Count 4.31 X10^6/uL (4.5-5.9); Red Cell Distribution Width 16.8 % (11.6-14.8); White Blood Cell Count 8.7 X10^3/uL (4.5-11.0)
[2018-10-09 05:50] LABS: BUN Creatinine Ratio 13.6 (6-22); Blood Urea Nitrogen 19 mg/dL (9-20); Calcium 8.3 mg/dL (8.4-10.2); Carbon Dioxide 26 mmol/L (22-32); Chloride 97 mmol/L (98-107); Estimated Glomerular Filt Rate 49.7 mL/min (>60); Glucose 116 mg/dL (80-110); HEMOLYSIS < 15 (0-50); Potassium 4.2 mmol/L (3.4-5.1); Sodium 134 mmol/L (137-145)
[2018-10-09] MEDS: ALBUTEROL/IPRATROPIUM 3 ML AMPUL INH ×4 (06:23→19:09)
[2018-10-09 06:38] LABS: Procalcitonin 0.28 ng/mL (<0.5)
[2018-10-09] MEDS: METOPROLOL ER 50 MG TABLET PO ×2 (08:45→20:05)
[2018-10-09] MEDS: ATORVASTATIN 20 MG TABLET 80 MG PO (08:45)
[2018-10-09] MEDS: FUROSEMIDE 40 MG TABLET PO ×2 (08:47→20:05)
[2018-10-09] MEDS: ACETAMINOPHEN 325 MG TABLET 650 MG PO (08:50)
[2018-10-09] MEDS: DOCUSATE 100 MG CAPSULE PO ×2 (08:51→20:04)
[2018-10-09] MEDS: ESCITALOPRAM 10 MG TABLET PO (08:51)
--- NOTE | 2018-10-09 10:22 | CM.DANOTE ---
DCP: Case received, EMR reviewed and met with patient. Introduced self and role. DCP template completed with information currently available. Patient is a 73 year old male who admitted yesterday evening to the care of the hospitalist team. PCP: Dr. Nagel. Payer: confirmed: Medicare/BCBS Out of [facility]. Patient came to hospital via family vehicle, due to symptoms of shortness of breath. Patient carries diagnosis of Multifocal Pneumonia, and at this time, is on droplet precautions. Attempted to reach , [place], for she attempted to call back, but cell phone out of area. Met with patient briefly. Alert and oriented, lives in [place] with his spouse. Patient stated that he is independent at home. He has history of Coronary Artery Disease, as well as A-Fib. P: DCP to continue to assess. Patient should be able to return home when stable. Hailey Faith RN/Aerial Lineman
--- NOTE | 2018-10-09 10:46 | PT.IIE ---
Current Diagnoses Hypo-osmolality and hyponatremia (10/08/18) Chronic pain syndrome (10/08/18) Pulmonary hypertension, unspecified (10/08/18) Persistent atrial fibrillation (10/08/18) Unspecified atrial fibrillation (10/08/18) Pneumonia, unspecified organism (10/08/18) Spinal stenosis, lumbar region with neurogenic claudication (10/08/18) Chronic kidney disease, unspecified (10/08/18) Unsteadiness on feet (10/08/18) halfway (current) use of anticoagulants (10/08/18) Presence of prosthetic heart valve (10/08/18) Surgical History (Last Updated 10/08/18 @ 23:30 by RAQUEL Barron) History of mitral valve replacement with mechanical valve (Acute) History of shoulder surgery (Acute) Status post coronary artery bypass graft (Acute) Medical History (Last Updated 10/08/18 @ 23:29 by RAQUEL Barron) Atrial fibrillation, chronic (Acute) Coronary artery disease (Acute) 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 (Acute) Former smoker, stopped smoking in distant past (Acute) History of pneumonia (Acute) Hyperlipidemia (Acute) Lumbar stenosis without neurogenic claudication (Acute) Pulmonary hypertension (Acute) Physical Therapy Inpatient Evaluation/Re-Eval M1 PT/OT-IP Prior Functional Status Start: 10/09/18 13:06 Freq: NEEDED Status: Active Protocol: Document 10/09/18 10:46 AB (Rec: 10/09/18 13:21 AB [id number]) Medical Review Prior Functional Status Medical History Reviewed Yes Communication able to make needs known Mobility and Gait stated that he is independent with all mobilties and ambulation without AD Social History Household Members spouse Living Arrangements House Number of Floors (Floors) One Floor Number of Stairs To Enter/Railing? 3 steps to enter with bilateral rails Home Environment Standard Height Toilet Tub/Shower Home Equipment Shower Seat without Backrest Hand Held Shower Grab Bars Near Toilet M2 PT-IP Current Condition Start: 10/09/18 13:06 Freq: NEEDED Status: Active Protocol: Document 10/09/18 10:46 AB (Rec: 10/09/18 13:21 AB [id number]) Physical Therapy Current Condition Current Condition Evaluation Date 10/09/18 Treatment Diagnosis PNA; generalized weakness Onset Date 10/08/18 Precautions Other Precautions droplet precaution; O2 M3 PT-IP Subjective Start: 10/09/18 13:06 Freq: NEEDED Status: Active Protocol: Document 10/09/18 10:46 AB (Rec: 10/09/18 13:21 AB [id number]) Subjective Physical Therapy Visit Type Type Initial Evaluation Visit Start Time 10:46 Visit Stop Time 11:25 Total Visit Minutes 39 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 Physical Therapy Visit Comments Patient Comments pt agreeable to get out of bed Therapy Pain Assessment Pain When Pain Assessed At Rest Pain Present Pain Present Pain Reported Location Back Intensity 6 Scale Used Numeric (1 - 10) Pain Management Techniques Re-positioning Timing of Activity with Medications M4 PT-IP Mobility and Gait Start: 10/09/18 13:06 Freq: NEEDED Status: Active Protocol: Document 10/09/18 10:46 AB (Rec: 10/09/18 13:21 AB [id number]) PT-Bed Mobility Assessment Supine to Sit Supine to Sit Standby Assistance Sit to Supine Sit to Supine Standby Assistance Scooting Scooting to Edge of Bed Standby Assistance PT-Transfer Assessment Sit to and From Stand Sit to and from Stand Standby Assistance Equipment Transfer Assistive Device Gait Belt Front Wheeled Walker Transfers Transfer Destination Chair Transfer Technique pt ambulated using FWW Transfer Ability Level of Assist Standby Assistance Contact Guard Assistance Comments Mobility Comments pt presents with difficulty with bed mobility and requires increase time to complete task. O2 sat varies from 92- 94% with activity. MT varies from 69 to 131 bpm. at rest: 109-123 but decreased to 69 bpm with activity. nurse informed. pt currently using 2L/min O2 Gait Assessment Gait Gait Assistance Required: Standby Assistance Contact Guard Assist 1 Person Assist Distance (Feet) 25 Able to Maintain Weight Bearing Status Yes During Gait Assistive Devices Assistive Device None Gait Belt Front Wheeled Walker Orthotic/Prosthetic Devices or Brace: No Gait Deviations General Gait Pattern Decreased Stride Length Decreased Feet Clearance Factors Limiting Gait Function Factors Limiting Gait Function Decreased Activity Tolerance Decreased Strength Difficulty Following Directions Limited Range of Motion Pain Poor Balance Poor Safety Awareness Comments Gait Comments Pt completed ambulation ~ 25 ft using FWW SBA to occasional CGA for safety. pt presents with decrease latosha and antalgic gait. pt stated that he has chronic LBP of 8/10 affecting mobility. pt completed ambulation without AD ~ 15 ft in room CGA. pt agreed to sit up on chair after ambulation. positioned on chair. call light and table placed within reach. PT-Balance Assessment Sitting Balance and Reactions Static Sitting Balance Ability Good Dynamic Sitting Balance Ability Good Standing Balance and Reactions Static Standing Balance Ability Fair Dynamic Standing Balance Ability Fair Device Used without AD M5 PT-IP Objective Assessments Start: 10/09/18 13:06 Freq: NEEDED Status: Active Protocol: Document 10/09/18 10:46 AB (Rec: 10/09/18 13:21 AB [id number]) Orientation Orientation/Cognition Level of Alertness Alert Orientation Name Age Birthday Month Year Place Situation Safety Awareness Decreased Safety Awareness Gross Range of Motion Lower Extremity ROM Assessment Within Functional Limits Strength Lower Extremity Strength Assessment Within Functional Limits Sensation Assessment Sensation Gross Sensation WNL Muscle Tone Muscle Tone WNL Yes M6 PT-IP Treatment Start: 10/09/18 13:06 Freq: NEEDED Status: Active Protocol: Document 10/09/18 10:46 AB (Rec: 10/09/18 13:21 AB [id number]) Physical Therapy Treatment Education Education Provided Safety M7 PT-IP Assessment and Plan Start: 10/09/18 13:06 Freq: NEEDED Status: Active Protocol: Document 10/09/18 10:46 AB (Rec: 10/09/18 13:21 AB [id number]) PT Summary Assessment and Plan Potential Rehabilitation Potential Fair Status of Condition at Evaluation Evolving Summary Impairments Pain ROM Strength Balance Coordination Sensation Tone Cognition Bed Mobility Transfers Gait Activity Tolerance Assessment Summary pt requiring SBA to CGA with mobility but presents with decrease activity tolerance affecting mobility and independence. pt will likely improve during hospital stay and spouse will assist pt at home. pt may go home when medically stable. Goals Bed Mobility Goal Independent Transfer Goal Independent Gait Goal Independent Gait Distance 200 Other Goals up/down 3 steps with B rail SBA Days to Meet Goals 5 Frequency of Treatment Frequency Of Treatment Once a Day Treatment Plan Physical Therapy Treatment Plan Bed Mobility Training Transfer Training Gait Training Therapeutic Exercise Balance Retraining Discharge Planning Hot or Cold Pack Neuromuscular Re-ed Coordination Retraining Manual Therapy Other Recommendations and Next Treatment ambulation using FWW/ without Focus AD Recommendations To Nursing Amount of Assist Needed 1 Person Assist Discharge Recommendations PT Discharge Recommendations Home with Assistance Outpatient PT Other Discharge Recommendations may benefit from cardiopulmo rehab Equipment Needed for Home Before FWW if not safe without AD Discharge
[2018-10-09] MEDS: MEROPENEM 1 GM/50 ML PIGGYBACK IV (11:42)
--- NOTE | 2018-10-09 12:31 | PM.PN.1 ---
Subjective Date Patient Seen: 10/09/18 Interval history: Chart reviewed patient seen and examined. Patient is a 73-year-old gentleman who was admitted to the hospital yesterday with multifocal pneumonia. Initial PCR was positive for Serratia and Enterobacter. Patient continues to have cough and wheezing. He reports his breathing is somewhat better. Exam Vital Signs (past 8 hours): - 10/09/18 05:40 10/09/18 06:23 10/09/18 06:36 Temperature 100.0 F H Pulse Rate 92 H 78 Respiratory Rate 16 Blood Pressure 112/50 L Pulse Oximetry 94 95 10/09/18 08:00 10/09/18 09:45 10/09/18 11:04 Temperature 98.2 F Pulse Rate 126 H 110 H Respiratory Rate 22 12 Blood Pressure 132/92 H Pulse Oximetry 90 L 95 87 L Oxygen Delivery Method Room Air Oxygen Flow Rate 0 Narrative Exam Narrative: Pleasant gentleman in no obvious distress Lungs: Diffuse end-expiratory wheezing bilaterally Cardiac exam: Tachycardic irregularly irregular normal S1-S2 Abdomen: Soft obese nontender nondistended without hepatosplenomegaly Extremities: 1+ edema Objective Labs Result Diagrams: 10/09/18 05:03 10/09/18 05:03 Labs: Laboratory Results - last 24 hr 10/08/18 10/08/18 10/08/18 19:45 19:45 19:45 WBC 9.5 RBC 4.45 L Hgb 12.4 L Hct 38.2 L MCV 85.8 MCH 27.8 MCHC 32.4 RDW 17.0 H Plt Count 280 Neut % (Auto) 83.1 H Lymph % (Auto) 8.3 L [place] % (Auto) 8.2 Eos % (Auto) 0.2 L Baso % (Auto) 0.2 Neut # (Auto) 7900 H PT 26.3 H INR 2.3 H APTT 51 H Sodium 138 Potassium 3.9 Chloride 100 Carbon Dioxide 25 BUN 20 Creatinine 1.40 H Estimated GFR 49.7 L BUN/Creatinine Ratio 14.3 Glucose 157 H Lactate Calcium 8.5 Phosphorus Magnesium Total Bilirubin 0.8 AST 58 ALT 28 Alkaline Phosphatase 236 H Total Creatine Kinase 119 CK-MB (CK-2) 0.52 CK-MB (CK-2) Rel Index 0.4 L Troponin I 0.013 B-Natriuretic Peptide 428 H Total Protein 8.0 Albumin 3.9 Globulin 4.1 Albumin/Globulin Ratio 1.0 Lipase 172 Procalcitonin 10/08/18 10/08/18 10/08/18 19:45 19:45 19:45 WBC RBC Hgb Hct MCV MCH MCHC RDW Plt Count Neut % (Auto) Lymph % (Auto) [place] % (Auto) Eos % (Auto) Baso % (Auto) Neut # (Auto) PT INR APTT Sodium Potassium Chloride Carbon Dioxide BUN Creatinine Estimated GFR BUN/Creatinine Ratio Glucose Lactate 2.2 H Calcium Phosphorus 3.9 H Magnesium 2.2 Total Bilirubin AST ALT Alkaline Phosphatase Total Creatine Kinase CK-MB (CK-2) CK-MB (CK-2) Rel Index Troponin I B-Natriuretic Peptide Total Protein Albumin Globulin Albumin/Globulin Ratio Lipase Procalcitonin 0.32 10/08/18 10/09/18 10/09/18 23:55 05:03 05:03 WBC 8.7 RBC 4.31 L Hgb 12.0 L Hct 37.0 L MCV 85.8 MCH 27.9 MCHC 32.5 RDW 16.8 H Plt Count 255 Neut % (Auto) 83.3 H Lymph % (Auto) 7.8 L [place] % (Auto) 8.2 Eos % (Auto) 0.4 L Baso % (Auto) 0.3 Neut # (Auto) 7300 H PT INR APTT Sodium 134 L Potassium 4.2 Chloride 97 L Carbon Dioxide 26 BUN 19 Creatinine 1.40 H Estimated GFR 49.7 L BUN/Creatinine Ratio 13.6 Glucose 116 H Lactate 1.2 Calcium 8.3 L Phosphorus Magnesium Total Bilirubin AST ALT Alkaline Phosphatase Total Creatine Kinase CK-MB (CK-2) CK-MB (CK-2) Rel Index Troponin I B-Natriuretic Peptide Total Protein Albumin Globulin Albumin/Globulin Ratio Lipase Procalcitonin 10/09/18 05:30 WBC RBC Hgb Hct MCV MCH MCHC RDW Plt Count Neut % (Auto) Lymph % (Auto) [place] % (Auto) Eos % (Auto) Baso % (Auto) Neut # (Auto) PT INR APTT Sodium Potassium Chloride Carbon Dioxide BUN Creatinine Estimated GFR BUN/Creatinine Ratio Glucose Lactate Calcium Phosphorus Magnesium Total Bilirubin AST ALT Alkaline Phosphatase Total Creatine Kinase CK-MB (CK-2) CK-MB (CK-2) Rel Index Troponin I B-Natriuretic Peptide Total Protein Albumin Globulin Albumin/Globulin Ratio Lipase Procalcitonin 0.28 Assessment & Plan (1) Pneumonia: Problem details: Patient presents with multifocal pneumonia, present on admission, acute Secondary to gram-negative bacteria, Serratia and Enterobacter Will continue IV antibiotics. Will discontinue meropenem, and Zosyn. Will start IV ceftriaxone. Await blood: There is, and sputum culture Qualifiers: Aspiration pneumonia type: Laterality: bilateral Lung location: unspecified part of lung Pneumonia type: due to unspecified organism Qualified Code(s): J18.9 - Pneumonia, unspecified organism Current visit: Yes Status: Acute (2) A-fib: Problem details: Atrial fibrillation, present on admission, rate currently controlled. Will continue his usual home medications. Qualifiers: Atrial fibrillation type: persistent Qualified Code(s): I48.1 - Persistent atrial fibrillation Current visit: Yes Status: Acute (3) Hyponatremia: Problem details: Hyponatremia, present on admission, acute will continue to follow Current visit: Yes Status: Acute (4) Pulmonary hypertension: Problem details: Pulmonary hypertension, chronic Current visit: Yes Status: Acute (5) Chronic kidney disease (CKD): Problem details: Chronic kidney disease, chronic Current visit: Yes Status: Acute Plan: Assessment/Plan Narrative: The patient will continue IV antibiotics, await sputum cultures, continue oxygen, anticipate discharge home once pulmonary status has improved.
[2018-10-09] MEDS: CEFTRIAXONE 1 GM/50 ML FROZ.PIGGY IV (12:40)
[2018-10-09] MEDS: WARFARIN 2.5 MG TABLET PO (16:36)
[2018-10-09 17:32] LABS: Bacteria Urine None Seen; WBC Urine None Seen (0-5/HPF)
[2018-10-09 17:41] LABS: Appearance Urine UA CLEAR; Bilirubin Urine UA NEGATIVE (NEGATIVE); Color Urine UA YELLOW; Glucose Urine UA NEGATIVE (Negative); Ketones Urine UA NEGATIVE (NEGATIVE); Leukocyte Esterase Urine UA NEGATIVE (NEGATIVE); Nitrite Urine UA NEGATIVE (Negative); Occult Blood Urine UA 1+ (Negative); Protein Urine UA TRACE (Negative); Specific Gravity Urine UA 1.025 (1.000-1.035); Urobilinogen Urine UA 0.2 E.U./dL (0.2)
[2018-10-09 17:45] LABS: Culture Indicated Urine Cult Not Indicated; RBC Urine 1-5/HPF (0-5/HPF)
[2018-10-09 18:25] LABS: Respiratory Syncytial Virus Negative
[2018-10-10] VITALS (11 sets, daily range): BP systolic 108–125; BP diastolic 68–90; PULSE 89–108; RESP 15–22; TEMP 36.3–38.1; O2SAT 85–98
--- NOTE | 2018-10-10 00:38 | PC.NURSE ---
Aligner Typewriter Note: 2345: Awake, resting in bed. Pt denies pain but states he feels tired. IV in place in lt AC. Pt remains on O2 2L/NC. Pt remains on telemetry. He denies chest pain or pressure. Pt is in droplet precautions. Family member at bedside.
[2018-10-10] MEDS: OXYCODONE IR 10 MG TABLET PO ×4 (02:17→22:27)
[2018-10-10 05:50] LABS: Add Manual Diff / Slide Review NO; Basophils Percent Auto 0.2 % (0-2); Eosinophils Percent Auto 0.7 % (2-4); Hematocrit 36.4 % (41-53); Hemoglobin 11.8 g/dL (13.5-17.5); Lymphocytes Percent Auto 9.3 % (25-40); Mean Corpuscular HGB Conc 32.3 % (30-36); Mean Corpuscular Hemoglobin 27.6 PG (26-34); Mean Corpuscular Volume 85.4 fL (80-100); Neutrophils Absolute Auto 8300 /uL (1500-7000); Neutrophils Percent Auto 82.8 % (50-75); Platelet Count 265 X10^3/uL (150-400); Red Blood Cell Count 4.26 X10^6/uL (4.5-5.9); Red Cell Distribution Width 16.8 % (11.6-14.8); White Blood Cell Count 10.1 X10^3/uL (4.5-11.0)
[2018-10-10 05:58] LABS: INR 2.6 (0.9-1.3); Prothrombin Time 30.5 SECONDS (10.1-12.7)
[2018-10-10 06:09] LABS: BUN Creatinine Ratio 15.3 (6-22); Blood Urea Nitrogen 23 mg/dL (9-20); Calcium 8.6 mg/dL (8.4-10.2); Carbon Dioxide 28 mmol/L (22-32); Chloride 95 mmol/L (98-107); Estimated Glomerular Filt Rate 45.9 mL/min (>60); Glucose 110 mg/dL (80-110); HEMOLYSIS < 15 (0-50); Potassium 4.1 mmol/L (3.4-5.1); Sodium 133 mmol/L (137-145)
[2018-10-10] MEDS: ALBUTEROL/IPRATROPIUM 3 ML AMPUL INH ×3 (06:23→15:46)
[2018-10-10 06:39] LABS: B Type Natriuretic Peptide 151 (<100)
[2018-10-10] MEDS: ATORVASTATIN 20 MG TABLET 80 MG PO (08:40)
[2018-10-10] MEDS: POTASSIUM CHLORIDE 10 MEQ TAB PO ×2 (08:41→20:12)
[2018-10-10] MEDS: FUROSEMIDE 40 MG TABLET PO ×2 (08:41→20:13)
[2018-10-10] MEDS: ESCITALOPRAM 10 MG TABLET PO (08:41)
[2018-10-10] MEDS: METOPROLOL ER 50 MG TABLET PO ×2 (08:41→20:13)
[2018-10-10] MEDS: OSELTAMIVIR 75 MG CAPSULE PO ×2 (10:01→20:13)
--- NOTE | 2018-10-10 10:17 | PM.PN.1 ---
Subjective Date Patient Seen: 10/10/18 Interval history: The patient is a 73-year-old male admitted to the hospital with pneumonia. His influenza a swab was positive. He denies any shortness of breath however he was found to be hypoxic with a room air sat of 84%. Patient continues to be markedly bronchospastic. He has a nonproductive cough. Exam Vital Signs (past 8 hours): - 10/10/18 06:00 10/10/18 06:24 10/10/18 07:40 Temperature 97.8 F 98.0 F Pulse Rate 105 H 108 H Respiratory Rate 17 22 20 Blood Pressure 125/76 120/68 Pulse Oximetry 98 96 95 10/10/18 09:30 Temperature Pulse Rate Respiratory Rate Blood Pressure Pulse Oximetry 94 Oxygen Delivery Method Room Air Oxygen Flow Rate 2 Narrative Exam Narrative: Obese male resting comfortably in no obvious distress Lungs: Diffuse end-expiratory wheezing bilaterally Cardiac exam: Irregularly regular normal S1-S2 Abdomen: Soft nontender nondistended Extremities: Trace edema Objective Labs Result Diagrams: 10/10/18 05:15 10/10/18 05:15 Labs: Laboratory Results - last 24 hr 10/09/18 10/09/18 10/10/18 17:00 17:15 05:15 WBC 10.1 RBC 4.26 L Hgb 11.8 L Hct 36.4 L MCV 85.4 MCH 27.6 MCHC 32.3 RDW 16.8 H Plt Count 265 Neut % (Auto) 82.8 H Lymph % (Auto) 9.3 L [place] % (Auto) 7.0 Eos % (Auto) 0.7 L Baso % (Auto) 0.2 Neut # (Auto) 8300 H PT INR Sodium Potassium Chloride Carbon Dioxide BUN Creatinine Estimated GFR BUN/Creatinine Ratio Glucose Calcium B-Natriuretic Peptide Urine Color Yellow Urine Appearance Clear Urine pH 5.0 Ur Specific [place] 1.025 Urine Protein Trace H Urine Glucose (UA) Negative Urine Ketones Negative Urine Occult Blood 1+ H Urine Nitrate Negative Urine Bilirubin Negative Urine Urobilinogen 0.2 Ur Leukocyte Esterase Negative Urine RBC 1-5/hpf Urine WBC None seen Urine Bacteria None seen Ur Culture Indicated? Cult not indicated Influenza A & B (PCR) Positive, type a A RSV (PCR) Negative 10/10/18 10/10/18 10/10/18 05:15 05:15 05:15 WBC RBC Hgb Hct MCV MCH MCHC RDW Plt Count Neut % (Auto) Lymph % (Auto) [place] % (Auto) Eos % (Auto) Baso % (Auto) Neut # (Auto) PT 30.5 H INR 2.6 H Sodium 133 L Potassium 4.1 Chloride 95 L Carbon Dioxide 28 BUN 23 H Creatinine 1.50 H Estimated GFR 45.9 L BUN/Creatinine Ratio 15.3 Glucose 110 Calcium 8.6 B-Natriuretic Peptide 151 H Urine Color Urine Appearance Urine pH Ur Specific [place] Urine Protein Urine Glucose (UA) Urine Ketones Urine Occult Blood Urine Nitrate Urine Bilirubin Urine Urobilinogen Ur Leukocyte Esterase Urine RBC Urine WBC Urine Bacteria Ur Culture Indicated? Influenza A & B (PCR) RSV (PCR) Assessment & Plan (1) Acute and chronic respiratory failure with hypoxia: Problem details: Patient will continue on oxygen, nebulizers and antibiotics Will start short course of steroids given marked bronchospasm Current visit: Yes Status: Acute (2) Influenza A: Problem details: Patient presents with influenza a, present on admission. Tamiflu started today Current visit: Yes Status: Acute (3) Chronic kidney disease (CKD): Problem details: Chronic kidney disease, chronic Current visit: Yes Status: Acute (4) Hyponatremia: Problem details: Hyponatremia, present on admission, acute will continue to follow Current visit: Yes Status: Acute (5) A-fib: Problem details: Atrial fibrillation, present on admission, rate currently controlled. Will continue his usual home medications. Qualifiers: Atrial fibrillation type: persistent Qualified Code(s): I48.1 - Persistent atrial fibrillation Current visit: Yes Status: Acute (6) Morbid obesity: Current visit: Yes Status: Acute
[2018-10-10] MEDS: MAG HYDROX/ALUM/SIMETH 30 ML UDC PO (11:20)
[2018-10-10] MEDS: predniSONE 20 MG TABLET 40 MG PO (11:20)
--- NOTE | 2018-10-10 12:03 | PT.IPTN ---
Current Diagnoses Morbid (severe) obesity due to excess calories (10/08/18) Hypo-osmolality and hyponatremia (10/08/18) Chronic pain syndrome (10/08/18) Pulmonary hypertension, unspecified (10/08/18) Persistent atrial fibrillation (10/08/18) Unspecified atrial fibrillation (10/08/18) Influenza due to other identified influenza virus with other respiratory manifestations (10/08/18) Pneumonia, unspecified organism (10/08/18) Acute and chronic respiratory failure with hypoxia (10/08/18) Spinal stenosis, lumbar region with neurogenic claudication (10/08/18) Chronic kidney disease, unspecified (10/08/18) Unsteadiness on feet (10/08/18) 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 (10/08/18) Presence of prosthetic heart valve (10/08/18) Physical Therapy Treatment Note M2 PT-IP Current Condition Start: 10/09/18 13:06 Freq: NEEDED Status: Active Protocol: Document 10/09/18 10:46 AB (Rec: 10/09/18 13:21 AB [id number]) Physical Therapy Current Condition Current Condition Evaluation Date 10/09/18 Treatment Diagnosis PNA; generalized weakness Onset Date 10/08/18 Precautions Other Precautions droplet precaution; O2 M3 PT-IP Subjective Start: 10/09/18 13:06 Freq: NEEDED Status: Active Protocol: Document 10/10/18 12:02 GGD (Rec: 10/10/18 12:03 GGD [id number]) Subjective Physical Therapy Visit Type Type Patient Refusal Notes Pt states he is having stomach pain, RN informed. o rehab Equipment Needed for Home Before FWW if not safe without AD Discharge
[2018-10-10] MEDS: CEFTRIAXONE 1 GM/50 ML FROZ.PIGGY IV (12:21)
--- NOTE | 2018-10-10 14:54 | PT.IPTN ---
Current Diagnoses Morbid (severe) obesity due to excess calories (10/08/18) Hypo-osmolality and hyponatremia (10/08/18) Chronic pain syndrome (10/08/18) Pulmonary hypertension, unspecified (10/08/18) Persistent atrial fibrillation (10/08/18) Unspecified atrial fibrillation (10/08/18) Influenza due to other identified influenza virus with other respiratory manifestations (10/08/18) Pneumonia, unspecified organism (10/08/18) Acute and chronic respiratory failure with hypoxia (10/08/18) Spinal stenosis, lumbar region with neurogenic claudication (10/08/18) Chronic kidney disease, unspecified (10/08/18) Unsteadiness on feet (10/08/18) 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 (10/08/18) Presence of prosthetic heart valve (10/08/18) Physical Therapy Treatment Note M2 PT-IP Current Condition Start: 10/09/18 13:06 Freq: NEEDED Status: Active Protocol: Document 10/09/18 10:46 AB (Rec: 10/09/18 13:21 AB [id number]) Physical Therapy Current Condition Current Condition Evaluation Date 10/09/18 Treatment Diagnosis PNA; generalized weakness Onset Date 10/08/18 Precautions Other Precautions droplet precaution; O2 M3 PT-IP Subjective Start: 10/09/18 13:06 Freq: NEEDED Status: Active Protocol: Document 10/10/18 14:54 GGD (Rec: 10/10/18 14:54 GGD [id number]) Subjective Physical Therapy Visit Type Type Patient Refusal Notes Pt refused states he not feeling well enough to get up. RN informed. PT Discharge Recommendations Home with Assistance Outpatient PT Other Discharge Recommendations may benefit from cardiopulmo rehab Equipment Needed for Home Before FWW if not safe without AD Discharge
--- NOTE | 2018-10-10 15:00 | CM.DPC ---
DCP Cont: Spoke to Je Fraser working with patient. Stated that it is still early to make determination if patient can go home versus skilled, since he is so ill. Stated that he refused to work with therapy today, for he was not feeling well, but did work with therapy yesterday. Will be determined by progress here in hospital if patient can return home, depending on illness and how he does with physical therapy. P: DCP to follow closely. Keep in collaboration with physical therapy team as well. Hailey Faith RN/Paint Stockman
[2018-10-10] MEDS: WARFARIN 2.5 MG TABLET 1.25 MG PO (16:32)
[2018-10-10] MEDS: ACETAMINOPHEN 325 MG TABLET 650 MG PO (20:12)
[2018-10-10] MEDS: DOCUSATE 100 MG CAPSULE PO (20:13)
[2018-10-11] VITALS (11 sets, daily range): BP systolic 106–133; BP diastolic 73–95; PULSE 65–85; RESP 14–18; TEMP 35.7–36.8; O2SAT 91–99
--- NOTE | 2018-10-11 03:46 | PC.NURSE ---
Wellness Instructor Note: 0000: Awake, resting in bed. Vital signs stable. Remains on telemetry. Remains on O2 2L/NC. Pt denies pain or discomfort. Breath sounds are improved, though still coarse. Family member at bedside.
[2018-10-11] MEDS: OXYCODONE IR 10 MG TABLET PO ×4 (06:15→23:55)
[2018-10-11] MEDS: ALBUTEROL/IPRATROPIUM 3 ML AMPUL INH ×3 (06:41→18:14)
--- NOTE | 2018-10-11 09:01 | PM.PN.1 ---
Subjective Date Patient Seen: 10/11/18 Interval history: He is seen today to follow up the pneumonia, weakness and influenza a. He is not very talkative. His , in fact, does all of the talking and he repeats several times that he wishes to go home. She says that he is walking much better and looking much better than when he was admitted. Physical therapy has plans to see him again today to determine discharge safety as he was not safe for discharge when last evaluated yesterday. Exam Vital Signs (past 8 hours): - 10/11/18 04:25 10/11/18 06:41 10/11/18 08:00 Temperature 97.5 F L 96.3 F L Pulse Rate 76 65 73 Respiratory Rate 16 18 16 Blood Pressure 132/78 123/73 Pulse Oximetry 97 95 97 Oxygen Delivery Method Nasal Cannula Oxygen Flow Rate 2 Narrative Exam Narrative: He is alert and oriented x3, lungs are notable for wheezing bilaterally. Heart is regular rate and rhythm without murmur. Extremities have no ankle edema. Objective Labs Result Diagrams: 10/10/18 05:15 10/10/18 05:15 Assessment & Plan Plan: Assessment/Plan Narrative: (1) Acute and chronic respiratory failure with hypoxia: Problem details: Patient remains dependent on nebulizers and antibiotics along with steroids. Current visit: Yes Status: Acute (2) Influenza A: Problem details: Patient presents with influenza a, present on admission. Tamiflu started yesterday. Current visit: Yes Status: Acute (3) Chronic kidney disease (CKD): Problem details: Chronic kidney disease, chronic Current visit: Yes Status: Acute (4) Hyponatremia: Problem details: Now 133. Hyponatremia, present on admission, acute will continue to follow Current visit: Yes Status: Acute (5) A-fib: Problem details: Atrial fibrillation, present on admission, rate currently controlled. Will continue his usual home medications. Qualifiers: Atrial fibrillation type: persistent Qualified Code(s): I48.1 - Persistent atrial fibrillation Current visit: Yes Status: Acute (6) Morbid obesity: Current visit: Yes Status: Acute Discharge is pending safe ambulation which is expected either later today or tomorrow. He will be on oral antibiotics.
[2018-10-11] MEDS: ATORVASTATIN 20 MG TABLET 80 MG PO (09:31)
[2018-10-11] MEDS: OSELTAMIVIR 75 MG CAPSULE PO ×2 (09:31→21:55)
[2018-10-11] MEDS: POTASSIUM CHLORIDE 10 MEQ TAB PO ×2 (09:32→21:55)
[2018-10-11] MEDS: METOPROLOL ER 50 MG TABLET PO ×2 (09:32→21:56)
[2018-10-11] MEDS: ESCITALOPRAM 10 MG TABLET PO (09:32)
[2018-10-11] MEDS: FUROSEMIDE 40 MG TABLET PO ×2 (09:32→21:55)
[2018-10-11] MEDS: predniSONE 20 MG TABLET 40 MG PO (09:33)
[2018-10-11] MEDS: SODIUM CHLORIDE 0.9% FLUSH 10 ML IV ×2 (09:33→21:55)
[2018-10-11] MEDS: CEFTRIAXONE 1 GM/50 ML FROZ.PIGGY IV (12:33)
[2018-10-11] MEDS: WARFARIN 2.5 MG TABLET PO (17:03)
[2018-10-11] MEDS: ACETAMINOPHEN 325 MG TABLET 650 MG PO (17:23)
[2018-10-11] MEDS: DOCUSATE 100 MG CAPSULE PO (21:55)
--- NOTE | 2018-10-11 22:44 | PC.NURSE ---
Evening shift 1530: Assumed care of pt by PAMELLA Caba. Got in report pt is independent in the room. 1630: Assessed pt. Complains of chronic lower back pain. Educated that next pain medication will be at 1800. 1745: Checked on pt. Schedule medication given. 1800: Pain medication given. at bedside. noticed pt had some redness on left hand. Pt reported slipping in the bathroom and catching the railing and sat down on the toilet. Hand assessed and does have some redness. Pt is not complaining of pain in that area. Dr. Olivas notified. Education done on fall prevention and the pt needs to call us when he wants to get up. Bed alarm is on. Pt asked about discharge. Informed pt that PT needs to evaluate him before MD will discharge him home. Told him not to refuse PT in AM.
[2018-10-12] VITALS: BP 130/70; PULSE 84; RESP 17; TEMP 36.2; O2SAT 95
--- NOTE | 2018-10-12 00:34 | PC.NURSE ---
Addendum entered by Alyse Alfaro R.N. 10/12/18 06:15: Patient awakened for morning assessment and when asked states back pain is 9/10. refused to have patient take pain meds stating I'm his pharmacist and he doesn't need that. Informed RN that patient has been hollering out in his sleep more often and believes it is related to narcotics. Patient further indicates he had a BM yesterday so did not take Dulcolax tabs. RA sat 94% Original Note: Patient is alert and oriented. Breath sounds coarse with expiratory wheezes and rhonchi but denies cough or SOB and RA sat is 96%; on continuous pulse oximetry. HR is irregular with telemetry reading of afib CVR. Denies nausea. BT present and abdomen is soft but no reported BM since 10/07 despite receiving Colace; will offer Dulcolax tabs in a.m. Denies urinary problems and is getting up with SBA; reminded to call for assistance. Independent with bed mobility. Complains of 9/10 pain so medicated with Oxycodone. Refusing SCD's. On droplet isolation due to influenza A postive. rooming in. Fall risk score is moderate; bed alarm is activated.
[2018-10-12] MEDS: ALBUTEROL/IPRATROPIUM 3 ML AMPUL INH ×2 (03:42→09:20)
[2018-10-12 03:43] VITALS: PULSE 70; RESP 18; O2SAT 93
[2018-10-12 04:03] VITALS: BP 130/78; PULSE 74; RESP 19; TEMP 36.2; O2SAT 92
[2018-10-12 08:00] VITALS: BP 125/80; PULSE 78; RESP 18; TEMP 36.6; O2SAT 93
[2018-10-12] MEDS: OXYCODONE IR 10 MG TABLET PO (08:57)
[2018-10-12] MEDS: ESCITALOPRAM 10 MG TABLET PO (09:00)
[2018-10-12] MEDS: POTASSIUM CHLORIDE 10 MEQ TAB PO (09:00)
[2018-10-12] MEDS: METOPROLOL ER 50 MG TABLET PO (09:00)
[2018-10-12] MEDS: DOCUSATE 100 MG CAPSULE PO (09:00)
[2018-10-12] MEDS: predniSONE 20 MG TABLET 40 MG PO (09:00)
[2018-10-12] MEDS: OSELTAMIVIR 75 MG CAPSULE PO (09:00)
[2018-10-12] MEDS: ATORVASTATIN 20 MG TABLET 80 MG PO (09:00)
[2018-10-12] MEDS: FUROSEMIDE 40 MG TABLET PO (09:00)
[2018-10-12] MEDS: SODIUM CHLORIDE 0.9% FLUSH 10 ML IV (09:02)
[2018-10-12 09:20] VITALS: PULSE 80; RESP 16; O2SAT 96
--- NOTE | 2018-10-12 09:56 | PM.DS.1 ---
History of Present Illness Date Patient Seen: 10/12/18 Chief complaint: SOB Narrative: This is a 73-year-old male patient with past medical history of coronary artery disease status post stent placement, atrial fibrillation on Coumadin hypertension and history of pneumonia x3 last episode in 2016 a past smoker who presents today for shortness of breath increasing over the last 4-5 days becoming much worse the last 2 days. The patient is seen bedside with his Jerrica, Patient recently returned from a trip to [place] where he reports having cold with head congestion that has progressed with increasing productive cough, dyspnea and began having fevers chills reporting a fever over 101 last night. He has had a positive cough has been productive and reports audible rattling in his chest. He has had no chest pain and has dyspnea at baseline being unable to ascend a flight of stairs without shortness of breath. Reports now that he cannot walk across the room without dyspnea. Patient to [facility]ara has a history of coronary artery disease and has undergone bypass grafting. Has a history of atrial fibrillation that is chronic and a history of mitral valve replacement with a mechanical valve. He is on warfarin without complaints of untoward bleeding or bruising. He has a history of pulmonary artery hypertension documented on echo on 01 16 2018 S being a PA pressure of 70 mmHg. He distally has a history of neurologic claudication bilateral lower extremities related to spinal stenosis and has been under treatment for pain management. He had a headache transiently 2 days ago but denies further head congestion or sore throat. He denies nausea or vomiting, abdominal pain and reports no difficulty with bowel or bladder. He is on Lasix and reports nocturia 2-3 times nightly. Discharge Providers Date of admission: 10/08/18 21:33 Primary care physician: Soco Nagel MD Consults: 10/08/18 21:40 Consult to Dietitian, Adult Routine Comment: Reason For Exam: CAD, AFib on coumadin, HLD, poor appatite 10/08/18 21:41 Consult to Discharge Planning Routine Comment: Consult to Physical Therapy Evaluate & Treat Comment: Physician Instructions: Evaluate and Treat 10/08/18 21:43 Consult to Respiratory Therapy Evaluate & Treat Comment: Serriata and Enterobactericeae Pneumonia Physician Instructions: Evaluate and treat Discharge provider: Kary Olivas MD Discharge Date: 10/12/18 Summary Discharge Diagnosis: Influenza a Pneumonia Progressive dementia Hospital Course: This is a 73-year-old male with progressive dementia who was admitted with acute respiratory failure and found to have influenza A along with bilateral probable bacterial pneumonia. He was treated with IV ceftriaxone along with Tamiflu and has recovered his respiratory status although he still wheezing today. Physical therapy has seen him and note that he is able to ambulate and function on his own. His describes that he is undergoing evaluation for his progressive memory/cognitive disorder and probable dementia. This is occurring at [facility] with Dr. Emerald Greene. He will be discharging in stable condition, continuing on a course of oral Augmentin along with a prednisone taper and then following up with Dr. Nagel in 1 week. Status at Discharge Cognitive/behavioral status at discharge: Cognitive disorder Functional status at discharge: independent ambulation Overall status at discharge: patient is progressing back to baseline Time Spent with Patient Less than 30 minutes Exam Vital Signs (past 8 hours): - 10/12/18 03:43 10/12/18 04:03 10/12/18 08:00 Temperature 97.1 F L 97.8 F Pulse Rate 70 74 78 Respiratory Rate 18 19 18 Blood Pressure 130/78 125/80 Pulse Oximetry 93 92 93 10/12/18 09:20 Temperature Pulse Rate 80 Respiratory Rate 16 Blood Pressure Pulse Oximetry 96 Fraction of Inspired Oxygen 21 Oxygen Delivery Method Room Air Oxygen Flow Rate 0 Objective Labs Result Diagrams: 10/10/18 05:15 10/10/18 05:15 Discharge Plan Discharge Plan Patient Disposition: Home Discharge comment: Stable for return to home with . Follow up with Dr. Nagel in one week. Continue Neurology workup in [employer]. Discharge Med Rec/Prescriptions Prescriptions: New prednisone 20 mg Tablet 20 mg PO DAILY 5 Days Qty: 5 RF: 0 oseltamivir [Tamiflu] 75 mg Capsule 75 mg PO BID Qty: 4 RF: 0 amoxicillin-pot clavulanate 875-125 mg tablet 1 tab PO BID 7 Days Qty: 14 RF: 0 Continue warfarin [Coumadin] 2.5 MG tablet 2.5 mg PO QDAY Qty: 0 RF: 0 potassium chloride [Klor-Con 8] 8 mEq Tablet Extended Release 20 meq PO BID Qty: 0 RF: 0 oxycodone [OxyContin] 40 mg Tablet,Oral Only,Ext.Rel.12 Hr 10 mg PO TID Qty: 0 RF: 0 atorvastatin 80 mg tablet 80 mg PO DAILY 90 Days Qty: 90 RF: 0 furosemide 40 mg tablet 40 mg PO BID 90 Days Qty: 45 RF: 0 metoprolol succinate 50 mg tablet extended release 24 hr 50 mg PO BID 45 Days Qty: 90 RF: 0 escitalopram oxalate 10 mg tablet 10 mg PO DAILY 90 Days Qty: 90 RF: 0 Follow up/Referrals: Soco Nagel MD [Primary Care Provider] - Provider Discharge Instructions Diet: Diet as Tolerated Visit Report/Discharge Packet Instructions: How to Avoid a Cold or Flu, Influenza (Alternative Therapy), DI for Pneumonia -- Adult, Prednisone, Amoxicillin and Clavulanic Acid, Oseltamivir Visit Report Forms: Stroke Signs & Symptoms Discharge Data Primary Care Provider: Soco Nagel Attending Provider: Santi Alexander Admvicky Date/Time: 10/08/18 21:33
--- NOTE | 2018-10-12 10:53 | CM.DPC ---
DCP Discharge Home: Per MD, pt is medically stable to d/c home today after further PT. Per MD, pt likely having more dementia memory issues and spouse aware and reviewing resources for likely need of increased assistance in the future. Plan: Patient to d/c home via spouse POV today and no SW needs at this time. SREEDHAR Chauhan
[2018-10-12 11:39] VITALS: BP 120/76; PULSE 93; RESP 16; O2SAT 97
--- NOTE | 2018-10-12 14:13 | PC.NURSE ---
Day shift: Pt left unit at approx 1415 in w/ his SO and MUSIC WRITER. Paperwork signed. All questions answered. scrips electronic to Pt's pharmacy. Pt has all personal belongings.
== END 2018-10-12 14:15 | disposition home or self-care (01) | DRG 177 ==
LOC: ED 21:10 → AC 21:34
PROVIDERS: Emergency Medicine; Internal Medicine; Admitting Provider Nurse Practitioner Adult Health; Emergency Provider Emergency Medicine; Family Provider Family Medicine; PCP Family Medicine; Visit Provider Nurse Practitioner Adult Health
DX: J10.08 Influenza due to other identified influenza virus with other specified pneumonia (principal); J96.21 Acute and chronic respiratory failure with hypoxia; J15.6 Pneumonia due to other Gram-negative bacteria; E87.1 Hypo-osmolality and hyponatremia; I48.2 Chronic atrial fibrillation; Z79.01 Long term (current) use of anticoagulants; I12.9 Hypertensive chronic kidney disease with stage 1 through stage 4 chronic kidney disease, or unspecified chronic kidney disease; N18.3 Chronic kidney disease, stage 3 (moderate); I27.20 Pulmonary hypertension, unspecified; I25.10 Atherosclerotic heart disease of native coronary artery without angina pectoris; Z95.2 Presence of prosthetic heart valve; Z87.891 Personal history of nicotine dependence; E78.5 Hyperlipidemia, unspecified; M54.5 Low back pain; F03.90 Unspecified dementia, unspecified severity, without behavioral disturbance, psychotic disturbance, mood disturbance, and anxiety
CPT/HCPCS: 36415; 36591; 71045; 80048; 80053; 81001; 82550; 82553; 83605; 83690; 83735; 83880; 84100; 84145; 84484; 85025; 85610; 85730; 87040; 87400; 87634; 93005; 94640; 94760; 94762; 96365; 96366; 97110; 97116; 97162; 99283; 99285; J1956; J2185; J2543

== ENCOUNTER → 2018-12-10 12:28 | Outpatient (CLI) | payer MEDICARE, BC, SELFPAY ==
[2018-10-08 22:01] VITALS: BMI 31.6
--- NOTE | 2018-12-10 12:35 | DI.MRI.S_ITS ---
PROCEDURE: MR LUMBAR SPINE WO CON INDICATIONS: Evaluation TECHNIQUE: Noncontrast sagittal T1 spin echo and T2 fast echo, sagittal STIR, axial T1 and T2 fast spin echo through the lumbar spine. In cases with scoliosis, additional coronal T2 fast spin echo may be performed. COMPARISON: None. FINDINGS: Image quality: Excellent. Alignment and Curvature: There is trace retrolisthesis of L2 on L3, L3 on L4, L4-L5 and L5 on S1. Bone Marrow: Marrow is of normal overall signal. Schmorl's nodes are present along the inferior endplates of L1, L2, L3, L4 and superior endplate of L3. Minimal reactive surrounding marrow edema is noted. No acute vertebral body compression fractures. Spinal Cord: Conus medullaris terminates at the L1-L2 level. Visualized cord demonstrates normal signal and size. Paraspinous Soft Tissues: No paravertebral masses. Right renal T2 hyperintensity is present most suggestive of renal cysts. Discs: Moderate to severe desiccation is present throughout the lumbar spine most severe at L1-L2 and L2-L3. L1-L2: Minimal disc bulge without spinal stenosis or foraminal narrowing. L2-L3: Mild disc bulge with mild spinal stenosis. Minimal left foraminal narrowing. Mild facet and ligamentum flavum hypertrophy. L3-L4: Mild disc bulge with mild spinal stenosis. Moderate bilateral foraminal narrowing with facet and ligamentum flavum hypertrophy. L4-L5: Mild disc bulge with mild to moderate spinal stenosis. Moderate to severe right and moderate left foraminal narrowing with facet and ligamentum flavum hypertrophy. L5-S1: Mild disc bulge without spinal stenosis. Mild/moderate bilateral foraminal narrowing with facet and ligamentum flavum hypertrophy. IMPRESSION: 1. Multilevel disc bulges. 2. Overall mild/moderate spinal stenosis possible at L4-5 secondary to disc bulge with contributing effects of retrolisthesis as well as facet/ligamentum flavum arthropathy. 3. Multilevel foraminal narrowing most prominent at L4-5 secondary to facet arthropathy.. Dictated by: Arcelia Esquivel M.D. on 12/10/2018 at 16:40 Approved by: Arcelia Esquivel M.D. on 12/10/2018 at 16:47
== END ==
PROVIDERS: Family Provider Family Medicine; PCP Family Medicine; Visit Provider Physical Medicine & Rehabilitation
DX: M48.062 Spinal stenosis, lumbar region with neurogenic claudication (principal); M48.07 Spinal stenosis, lumbosacral region; M47.816 Spondylosis without myelopathy or radiculopathy, lumbar region; M51.26 Other intervertebral disc displacement, lumbar region; M51.27 Other intervertebral disc displacement, lumbosacral region
CPT/HCPCS: 72148

== ENCOUNTER 2019-02-10 19:59 | Emergency (ER) | payer MEDICARE, BC, SELFPAY ==
[2018-10-08 22:01] VITALS: BMI 31.6
[2019-02-10 20:01] VITALS: BP 141/86; PULSE 83; RESP 14; TEMP 36.6; O2SAT 96
[2019-02-10 20:37] VITALS: BP 125/69; PULSE 92; RESP 18; TEMP 36.7; O2SAT 95
--- NOTE | 2019-02-10 20:43 | ED_ITS ---
HPI - Extremity Problem General Chief complaint: Extremity Problem,Nontraumatic Stated complaint: FALL RIGHT LEG LUMP Time Seen by Provider: 02/10/19 20:20 Source: patient Mode of arrival: ambulatory Limitations: no limitations History of Present Illness HPI Narrative: The patient has a large hematoma on his right lower baer. He apparently fell 3 days ago when returning from [place]. The patient nor his daughter can't tell me how he fell, or what happened. It is known that he fell 1 time prior while still in [place]. He is anticoagulated with Coumadin 2.5 mg daily due to a mechanical heart valve. He has no chest pain, palpitations or hemoptysis. He denies dyspnea. There is no head or neck injury reported from the falls. He has no head pain now. He is generally unsteady, and should be using a walker when up and about, he does not always. He has no complaints other the swelling to the right distal tib-fib area. Related Data Home Medications Medication Instructions Recorded Confirmed oxycodone [OxyContin] 10 mg PO TID #0 03/24/17 10/08/18 potassium chloride [Klor-Con 8] 20 meq PO BID #0 03/24/17 10/08/18 warfarin [Coumadin] 2.5 mg PO QDAY #0 03/24/17 10/08/18 atorvastatin 80 mg tablet 80 mg PO DAILY 90 Days #90 tab 08/08/18 10/08/18 escitalopram 10 mg tablet 10 mg PO DAILY 90 Days #90 tab 08/08/18 10/08/18 furosemide 40 mg tablet 40 mg PO BID 90 Days #45 tab 08/08/18 10/08/18 metoprolol succinate ER 50 mg 50 mg PO BID 45 Days #90 tab 08/08/18 10/08/18 tablet,extended release 24 hr Previous Rx's Medication Instructions Recorded oseltamivir [Tamiflu] 75 mg PO BID #4 cap 10/12/18 Allergies Allergy/AdvReac Type Severity Reaction Status Date / Time cyclobenzaprine Allergy Unknown Verified 08/08/18 11:17 [facility] Review of Systems Review of Systems ROS Unobtainable: All systems reviewed & are unremarkable except as noted in HPI and below Constitutional Denies chills, Denies fever(s), Denies lethargy, Denies malaise and Reports weakness Eyes Denies change in vision, Denies eye discharge and Denies loss of vision ENT Ears, Nose, Mouth, and Throat: Denies change in voice, Denies vertigo, Denies dizziness, Denies neck pain and Denies sore throat Cardiovascular Denies chest pain, Denies irregular heart rhythm, Denies lightheadedness, Denies dyspnea and Denies orthopnea Respiratory Denies cough, Denies dyspnea and Denies wheezing Gastrointestinal Gastrointestinal: Denies abdominal pain, Denies change in bowel habits, Denies diarrhea, Denies nausea and Denies vomiting Musculoskeletal Denies back pain and Denies neck pain Integumentary/Breasts Denies erythema, Denies rash and Denies wounds Neurologic Denies confusion, Denies vertigo, Denies dizziness, Denies loss of vision and Reports weakness Psychiatric Denies confusion Allergic/Immunologic Denies wheezing [facility] Medical History Cerebral amyloid angiopathy (Acute) Atrial fibrillation, chronic (Acute) Coronary artery disease (Acute) 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) Former smoker, stopped smoking in distant past (Acute) History of pneumonia (Acute) Hyperlipidemia (Acute) Lumbar stenosis without neurogenic claudication (Acute) Pulmonary hypertension (Acute) Surgical History History of mitral valve replacement with mechanical valve (Acute) History of shoulder surgery (Acute) Status post coronary artery bypass graft (Acute) Family History (Updated 10/08/18 @ 23:36 by RAQUEL Barron) Father Liver disease Mother Liver cirrhosis, alcoholic Cardiovascular disease Sister History of multiple strokes Sister Cardiovascular disease Pulmonary disease Social History household members: spouse Smoking Status: Former smoker Family History Father Liver disease Mother Liver cirrhosis, alcoholic Cardiovascular disease Sister History of multiple strokes Sister Cardiovascular disease Pulmonary disease Social History household members: spouse Smoking Status: Former smoker Exam Initial Vital Signs Initial Vital Signs: Vital Signs Temperature 97.9 F 02/10/19 20:01 Pulse Rate 83 02/10/19 20:01 Respiratory Rate 14 02/10/19 20:01 Blood Pressure 141/86 H 02/10/19 20:01 Pulse Oximetry 96 02/10/19 20:01 Const General: cooperative and well developed Nutritional Appearance: well nourished Orientation: alert, awake, oriented x3 and not confused [facility] Head: normocephalic and atraumatic Nose: external nose normal Face and sinus: sinuses nontender and No dry mucous membranes Mouth: moist mucous membranes Throat: tonsils normal and uvula midline Eyes General: appearance normal, both eyes and all related structures Eyelids: eyelids normal Conjunctivae: conjunctivae normal Sclera: sclerae normal Pupils: PERRL EOM: EOM intact bilaterally Neck Neck: No tender Chest Chest: No tenderness Resp Effort & Inspection: normal respiratory effort and able to speak in complete sentences Auscultation: clear to auscultation bilaterally, no rales, no rhonchi and no wheezes Cardio Rate: regular rate Rhythm: regular rhythm Heart Sounds: click, no gallops, no murmurs (Mechanical murmur) and no rubs Pulses: normal peripheral pulses GI Inspection: non-distended Palpation: soft, no hepatosplenomegaly, No guarding, No pulsatile mass and No tender Auscultation: normal bowel sounds Back/Spine/Pelvis Back: No back tenderness Skin General: no rashes or lesions noted and No petechiae Neuro General: alert, oriented x3, gait normal and no focal motor deficits Speech: speech normal Extrem General: other (2 x 2 cm hematoma on the right lower tib-fib area. ) Other: Lower extremities are otherwise normal. Peripheral pulses are normal. Course Course Narrative: The patient has no history concerning for head injury. He cannot recall how he injured his right leg. He has an INR of 2.7. Labs and EKG are reassuring. Orders Ordered: ED Orders 02/10/19 20:38 EKG-12 Lead Stat 02/10/19 20:55 Complete Blood Count AUTO DIFF Stat Prothrombin Time INR Stat 02/10/19 21:03 Basic Metabolic Panel Stat Troponin & CK Cardiac Panel Stat Vital Signs - 8 hr 02/10/19 20:01 02/10/19 20:37 02/10/19 21:03 Temperature 97.9 F 98.1 F Pulse Rate 83 92 H 67 Respiratory Rate 14 18 Blood Pressure 141/86 H Blood Pressure [Right Arm] 125/69 124/76 Pulse Oximetry 96 95 97 02/10/19 22:00 Temperature Pulse Rate 73 Respiratory Rate 17 Blood Pressure Blood Pressure [Right Arm] 137/65 Pulse Oximetry 98 MDM - Extremity (Nontraumatic) Lab Data Result diagrams: 02/10/19 20:55 02/10/19 21:03 Lab Results 02/10/19 02/10/19 02/10/19 Range/Units 20:55 20:55 21:03 WBC 7.7 (4.5-11.0) X10^3/uL RBC 4.14 L (4.5-5.9) X10^6/uL Hgb 11.5 L (13.5-17.5) g/dL Hct 35.2 L (41-53) % MCV 85.1 (80-100) fL MCH 27.7 (26-34) PG MCHC 32.6 (30-36) % RDW 16.6 H (11.6-14.8) % Plt Count 306 (150-400) X10^3/uL Neut % (Auto) 72.1 (50-75) % Lymph % (Auto) 12.7 L (25-40) % [place] % (Auto) 11.2 (3-14) % Eos % (Auto) 3.5 (2-4) % Baso % (Auto) 0.5 (0-2) % Neut # (Auto) 5600 (9133-5013) /uL Lymph # (Auto) 1000 L (8288-4915) /uL [place] # (Auto) 900 (0-900) /uL Eos # (Auto) 300 (0-450) /uL Baso # (Auto) 0 (0-100) /uL PT 31.2 H (10.1-12.7) SECONDS INR 2.7 H (0.9-1.3) Sodium 138 (137-145) mmol/L Potassium 4.1 (3.4-5.1) mmol/L Chloride 99 (98-107) mmol/L Carbon Dioxide 33 H (22-32) mmol/L BUN 18 (9-20) mg/dL Creatinine 1.20 (0.66-1.25) mg/dL Estimated GFR 59.3 L (>60) mL/min BUN/Creatinine Ratio 15.0 (6-22) Glucose 142 H (80-110) mg/dL Calcium 8.6 (8.4-10.2) mg/dL Total Creatine Kinase 48 L (55-170) U/L CK-MB (CK-2) TNP CK-MB (CK-2) Rel Index TNP Troponin I < 0.012 (0.01-0.034) ng/mL ECG Data Attestation EKG: I personally reviewed and interpreted this ECG as follows: (AFib rate 60 beats per minute. Q-waves suggesting old septal WA. No acute ST T wave changes. Moderate T-wave abnormality. No acute findings.) Discharge Plan Departure Patient Disposition: Home Clinical Impression: Hematoma Instructions: DI for Hematoma (Bruise) Activity Restrictions/Additional Instructions: The INR number is 2.7, and appropriate number. I would suggest reinforcing conversation about using a walkers or cane and trying her best to avoid falls. Return to the ER as needed. Prescriptions: No Action warfarin [Coumadin] 2.5 MG tablet 2.5 mg PO QDAY Qty: 0 RF: 0 potassium chloride [Klor-Con 8] 8 mEq Tablet Extended Release 20 meq PO BID Qty: 0 RF: 0 oxycodone [OxyContin] 40 mg Tablet,Oral Only,Ext.Rel.12 Hr 10 mg PO TID Qty: 0 RF: 0 oseltamivir [Tamiflu] 75 mg Capsule 75 mg PO BID Qty: 4 RF: 0 atorvastatin 80 mg tablet 80 mg PO DAILY 90 Days Qty: 90 RF: 0 furosemide 40 mg tablet 40 mg PO BID 90 Days Qty: 45 RF: 0 metoprolol succinate 50 mg tablet extended release 24 hr 50 mg PO BID 45 Days Qty: 90 RF: 0 escitalopram oxalate 10 mg tablet 10 mg PO DAILY 90 Days Qty: 90 RF: 0 Referrals: Soco Nagel MD [Primary Care Provider] -
[2019-02-10 21:03] VITALS: BP 124/76; PULSE 67; O2SAT 97
[2019-02-10 21:14] LABS: INR 2.7 (0.9-1.3); Prothrombin Time 31.2 SECONDS (10.1-12.7)
[2019-02-10 21:15] LABS: Add Manual Diff / Slide Review NO; Basophils Absolute Auto 0 /uL (0-100); Basophils Percent Auto 0.5 % (0-2); Eosinophils Absolute Auto 300 /uL (0-450); Eosinophils Percent Auto 3.5 % (2-4); Hematocrit 35.2 % (41-53); Hemoglobin 11.5 g/dL (13.5-17.5); Lymphocytes Absolute Auto 1000 /uL (1100-4500); Lymphocytes Percent Auto 12.7 % (25-40); Mean Corpuscular HGB Conc 32.6 % (30-36); Mean Corpuscular Hemoglobin 27.7 PG (26-34); Mean Corpuscular Volume 85.1 fL (80-100); Monocytes Absolute Auto 900 /uL (0-900); Monocytes Percent Auto 11.2 % (3-14); Neutrophils Absolute Auto 5600 /uL (1500-7000); Neutrophils Percent Auto 72.1 % (50-75); Platelet Count 306 X10^3/uL (150-400); Red Blood Cell Count 4.14 X10^6/uL (4.5-5.9); Red Cell Distribution Width 16.6 % (11.6-14.8); White Blood Cell Count 7.7 X10^3/uL (4.5-11.0)
[2019-02-10 21:28] LABS: Blood Urea Nitrogen 18 mg/dL (9-20); Calcium 8.6 mg/dL (8.4-10.2); Carbon Dioxide 33 mmol/L (22-32); Chloride 99 mmol/L (98-107); Creatine Kinase 48 U/L (55-170); Estimated Glomerular Filt Rate 59.3 mL/min (>60); Glucose 142 mg/dL (80-110); HEMOLYSIS < 15 (0-50); Potassium 4.1 mmol/L (3.4-5.1); Sodium 138 mmol/L (137-145)
[2019-02-10 21:39] LABS: Troponin I < 0.012 ng/mL (0.01-0.034)
[2019-02-10 22:00] VITALS: BP 137/65; PULSE 73; RESP 17; O2SAT 98
[2019-02-10 22:50] VITALS: BP 122/79; PULSE 68; O2SAT 98
== END 2019-02-10 23:22 | disposition home or self-care (01) ==
PROVIDERS: Emergency Provider Emergency Medicine; Family Provider Family Medicine; PCP Family Medicine
DX: S80.12XA Contusion of left lower leg, initial encounter (principal); W19.XXXA Unspecified fall, initial encounter; R53.1 Weakness; Z95.2 Presence of prosthetic heart valve; Z79.01 Long term (current) use of anticoagulants
CPT/HCPCS: 36415; 36591; 80048; 82550; 84484; 85025; 85610; 93005; 93010; 99283; 99284

== ENCOUNTER 2019-05-29 14:06 | Emergency (ER) | payer MEDICARE, BC, SELFPAY ==
[2018-10-08 22:01] VITALS: BMI 31.6
[2019-05-29 14:10] VITALS: BP 93/64; PULSE 97; RESP 16; TEMP 36.3; O2SAT 93; BMI 32.5
--- NOTE | 2019-05-29 14:22 | DI.RAD.S_ITS ---
PROCEDURE: XR SHOULDER LT MIN 2V INDICATIONS: shoulder injury s/p fall TECHNIQUE: 2 views of the shoulder were acquired. COMPARISON: [facility], CR, XR CHEST 1V, 10/08/2018, 20:00. FINDINGS: Bones: There is a comminuted, displaced fracture of the proximal humerus involving the humeral head and the surgical neck. The acromioclavicular joint appears intact. The glenoid appears intact. Visualized portions of the ribs appear intact. Soft tissues: No suspicious soft tissue calcifications. IMPRESSION: Comminuted, displaced proximal humeral fracture. Dictated by: Winnie Braun M.D. on 05/29/2019 at 15:32 Approved by: Winnie Braun M.D. on 05/29/2019 at 15:33
[2019-05-29 14:30] VITALS: BP 105/62; PULSE 90; RESP 10; O2SAT 95
[2019-05-29 14:57] LABS: Prothrombin Time 36.1 SECONDS (10.1-12.7)
[2019-05-29 14:58] LABS: Add Manual Diff / Slide Review NO; Basophils Absolute Auto 0 /uL (0-100); Basophils Percent Auto 0.2 % (0-2); Eosinophils Absolute Auto 0 /uL (0-450); Eosinophils Percent Auto 0.4 % (2-4); Hematocrit 33.5 % (41-53); Lymphocytes Absolute Auto 800 /uL (1100-4500); Lymphocytes Percent Auto 7.2 % (25-40); Mean Corpuscular HGB Conc 32.8 % (30-36); Mean Corpuscular Hemoglobin 27.8 PG (26-34); Mean Corpuscular Volume 84.8 fL (80-100); Monocytes Absolute Auto 700 /uL (0-900); Monocytes Percent Auto 6.2 % (3-14); Neutrophils Absolute Auto 9400 /uL (1500-7000); Platelet Count 287 X10^3/uL (150-400); Red Blood Cell Count 3.95 X10^6/uL (4.5-5.9); Red Cell Distribution Width 16.8 % (11.6-14.8); White Blood Cell Count 10.9 X10^3/uL (4.5-11.0)
[2019-05-29 15:05] VITALS: BP 94/62; PULSE 98; RESP 22; O2SAT 98
[2019-05-29 15:05] LABS: Alanine Aminotransferase 32 IU/L (21-72); Albumin 4.1 g/dL (3.5-5.0); Albumin Globulin Ratio 1.1 (1.0-2.8); Alkaline Phosphatase 207 U/L (38-126); Aspartate Aminotransferase 49 IU/L (17-59); Bilirubin Total 1.1 mg/dL (0.2-1.3); Blood Urea Nitrogen 21 mg/dL (9-20); Calcium 8.8 mg/dL (8.4-10.2); Carbon Dioxide 24 mmol/L (22-32); Chloride 100 mmol/L (98-107); Creatine Kinase 130 U/L (55-170); Estimated Glomerular Filt Rate 49.7 mL/min (>60); Globulin 3.7 g/dL (1.7-4.1); Glucose 199 mg/dL (80-110); HEMOLYSIS < 15 (0-50); Potassium 4.3 mmol/L (3.4-5.1); Sodium 139 mmol/L (137-145); Total Protein 7.8 g/dL (6.3-8.2)
[2019-05-29] MEDS: SODIUM CHLORIDE 0.9% 1,000 ML 1000 ML IV (15:09)
[2019-05-29 15:17] LABS: Troponin I < 0.012 ng/mL (0.01-0.034)
[2019-05-29 15:20] LABS: CKMB % Relative Index 0.3 % (1.5-5.0); Creatine Kinase MB 0.44 ng/mL (<2.37)
[2019-05-29] MEDS: OXYCODONE/ACETAMINOPHEN 5/325 TABLET 2 TAB PO (16:09)
--- NOTE | 2019-05-29 17:01 | ED.FALL ---
HPI - Fall General Chief Complaint: Fall Stated Complaint: FALL Time Seen by Provider: 05/29/19 15:14 Source: patient and family Mode of arrival: ambulatory Limitations: no limitations History of Present Illness HPI Narrative: Patient comes to the emergency department complaining of left shoulder pain after fall. Patient has a longstanding history of ?blackouts?, and patient's states that the patient had another episode and fell. The incident happened yesterday at some point before the late afternoon, when came home and found that the patient's left shoulder was painful and swollen. The patient denies any other injuries. states she has noticed some bruises on the patient's body, but states he is also on Coumadin and has frequent falls. Patient lives at home with his , who also cares for her aging and chronically ill parents, as well as their several animals. Patient's states that she does not want the patient to go anywhere else to live, but that she may talk to the patient's PCP about having some extra help at home. Patient denies numbness or tingling in his hand. He denies prior injury to this shoulder. Related Data Home Medications Medication Instructions Recorded Confirmed atorvastatin 80 mg tablet 80 mg PO QPM 90 Days #90 tab 08/08/18 05/29/19 escitalopram oxalate 10 mg tablet 10 mg PO DAILY 90 Days #90 tab 08/08/18 05/29/19 metoprolol succinate 50 mg 25 mg PO QAM 45 Days #90 tab 08/08/18 05/29/19 tablet,extended release 24 hr Co Q-10 1 cap PO DAILY 05/29/19 05/29/19 Stool Softener 1 cap PO BID 05/29/19 05/29/19 ferrous sulfate [iron] 325 mg PO TID 05/29/19 05/29/19 furosemide 20 mg PO BID 05/29/19 05/29/19 melatonin 5 - 10 mg PO BEDTIME PRN 05/29/19 05/29/19 metoprolol succinate 50 mg PO QPM 05/29/19 05/29/19 multivitamin 1 tab PO DAILY 05/29/19 05/29/19 omeprazole 40 mg PO DAILY 05/29/19 05/29/19 oxycodone 10 mg PO TID 05/29/19 05/29/19 potassium chloride 20 meq PO BID 05/29/19 05/29/19 warfarin [Jantoven] 1.25 mg PO SUWEFR 05/29/19 05/29/19 warfarin [Jantoven] 2.5 mg PO MOTUTHSA 05/29/19 05/29/19 Allergies Allergy/AdvReac Type Severity Reaction Status Date / Time cyclobenzaprine Allergy Unknown Verified 05/29/19 14:10 [From FLEXERIL] hydrocodone Allergy Verified 05/29/19 14:10 Review of Systems Constitutional Constitutional: Denies chills, Denies fatigue, Denies fever(s), Denies frequent falls, Denies lethargy and Denies weakness Eyes Eyes: Denies change in vision, Denies eye discharge, Denies irritation and Denies loss of vision ENT Ears, Nose, Mouth, and Throat: Denies change in voice, Denies dizziness, Denies neck pain, Denies sore throat and Denies throat swelling Cardiovascular Cardiovascular: Denies chest pain, Denies irregular heart rhythm, Denies lightheadedness, Denies palpitations, Denies dyspnea, Denies dyspnea on exertion and Denies orthopnea Respiratory Respiratory: Denies cough, Denies dyspnea, Denies dyspnea on exertion and Denies wheezing Gastrointestinal Gastrointestinal: Denies abdominal pain, Denies change in bowel habits, Denies diarrhea, Denies nausea and Denies vomiting Genitourinary Genitourinary: Denies hematuria, Denies flank pain, Denies urinary incontinence and Denies urinary urgency Musculoskeletal Musculoskeletal: Denies back pain, Denies muscle weakness, Denies neck pain, Denies numbness and Denies tingling Comments: Left shoulder pain Integumentary/Breasts Skin/Breast: Denies pruritus, Denies erythema, Denies rash and Denies wounds Neurologic Neurologic: Denies behavioral changes, Denies confusion, Denies dizziness, Denies frequent falls, Denies loss of vision, Denies numbness, Denies tingling and Denies weakness Psychiatric Psychiatric: Denies anxiety, Denies behavioral changes, Denies confusion, Denies depression, Denies homicidal ideation and Denies suicidal ideation Endocrine Endocrine: Denies fatigue, Denies flushing and Denies palpitations Hematologic/Lymphatic Hematologic/Lymphatic: Denies easy bruising Allergic/Immunologic Allergic/Immunologic: Denies urticaria, Denies throat swelling and Denies wheezing Exam Initial Vital Signs Initial Vital Signs: Vital Signs Temperature 97.4 F L 05/29/19 14:10 Pulse Rate 97 H 05/29/19 14:10 Respiratory Rate 16 05/29/19 14:10 Blood Pressure 93/64 05/29/19 14:10 Pulse Oximetry 93 05/29/19 14:10 Const General: cooperative and well developed Nutritional Appearance: well nourished Orientation: alert, awake and not confused [facility] Head: normocephalic and atraumatic Ears: external ears normal and TM's normal bilaterally Nose: external nose normal and No nasal discharge Face and sinus: sinuses nontender, face symmetric, no sinus tenderness and No dry mucous membranes Mouth: oral mucosae normal and moist mucous membranes Teeth and gingiva: dentition normal Throat: tonsils normal and uvula midline Eyes General: appearance normal, both eyes and all related structures Eyelids: eyelids normal Conjunctivae: conjunctivae normal Sclera: sclerae normal Pupils: PERRL EOM: EOM intact bilaterally Neck Neck: normal visual inspection, trachea midline, No lymphadenopathy, No midline deformity and No JVD Lymphatic: No lymphedema Chest Chest: normal inspection of the chest Resp Effort & Inspection: normal respiratory effort, able to speak in complete sentences, no respiratory distress and no use of accessory muscles Auscultation: clear to auscultation bilaterally, no rales, no rhonchi and no wheezes Cardio Rate: regular rate Rhythm: regular rhythm Heart Sounds: no click, no gallops, no murmurs and no rubs Pulses: normal peripheral pulses (L radial pulse strong) GI Inspection: non-distended Palpation: soft, no hepatosplenomegaly, No guarding, No pulsatile mass and No tender Auscultation: normal bowel sounds Back/Spine/Pelvis Back: No CVA tenderness Cervical Spine: cervical ROM normal and No pain with cervical ROM Thoracic/Lumbar Spine: thoracic and lumbar spine normal to inspection Skin General: no rashes or lesions noted, No jaundice and No petechiae Neuro General: alert, oriented x3, gait normal and no focal motor deficits Speech: speech normal Extrem General: no pedal edema and no calf tenderness Other: Patient has a grossly edematous and contused left shoulder, with limited range of motion. Patient has tenderness to palpation. 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) Former smoker, stopped smoking in distant past (Acute) History of pneumonia (Acute) Hyperlipidemia (Acute) Lumbar stenosis without neurogenic claudication (Acute) Pulmonary hypertension (Acute) Surgical History History of mitral valve replacement with mechanical valve (Acute) History of shoulder surgery (Acute) Status post coronary artery bypass graft (Acute) Family History Father Liver disease Mother Liver cirrhosis, alcoholic Cardiovascular disease Sister History of multiple strokes Sister Cardiovascular disease Pulmonary disease Social History household members: spouse Smoking Status: Former smoker Family History Father Liver disease Mother Liver cirrhosis, alcoholic Cardiovascular disease Sister History of multiple strokes Sister Cardiovascular disease Pulmonary disease Social History household members: spouse Smoking Status: Former smoker Course Course Course Narrative: Patient was worked up with labs and shoulder x-ray, which showed a displaced proximal humerus fracture. Patient remained neurovascularly intact throughout his stay in the emergency department. I spoke with Dr. Meneses, who is on-call for Orthopedics, and she stated that for now, the patient should be placed in a shoulder immobilizer, and should follow up in the orthopedic clinic next week. I have discussed this with the patient and , who are agreeable to the plan. Patient has been placed in a shoulder immobilizer. We have discussed home management of the pain, as well as the usual indications for return. Orders Ordered: Discontinued Medications Hydromorphone HCl (Dilaudid) 0.5 mg IV NOW ONE Stop: 05/29/19 17:02 Last Admin: 05/29/19 17:19 Dose: 0.5 mg Documented by: SCANAPO Sodium Chloride (Normal Saline 0.9%) 1,000 mls @ 1,000 mls/hr IV BOLUS ONE Stop: 05/29/19 15:21 Last Infusion: 05/29/19 16:31 Dose: 0 mls/hr Documented by: Admin: 05/29/19 15:09 Dose: 1,000 mls/hr Documented by: PAULA Oxycodone/Acetaminophen (Percocet 5/325) 2 tab PO NOW ONE Stop: 05/29/19 16:03 Last Admin: 05/29/19 16:09 Dose: 2 tab Documented by: JIMMY Vital Signs Vital signs: Vital Signs - 8 hr 05/29/19 14:10 05/29/19 14:30 05/29/19 15:05 Temperature 97.4 F L Pulse Rate 97 H 90 98 H Respiratory Rate 16 10 L 22 Blood Pressure 93/64 Blood Pressure [Left Arm] 105/62 94/62 Pulse Oximetry 93 95 98 MDM - Fall Medical Records Attestation: I reviewed the patient's medical records. Lab Data Attestation: I reviewed the patient's lab results. Result diagrams: 05/29/19 14:42 05/29/19 14:42 Labs: Lab Results 05/29/19 05/29/19 05/29/19 Range/Units 14:42 14:42 14:42 WBC 10.9 (4.5-11.0) X10^3/uL RBC 3.95 L (4.5-5.9) X10^6/uL Hgb 11.0 L (13.5-17.5) g/dL Hct 33.5 L (41-53) % MCV 84.8 (80-100) fL MCH 27.8 (26-34) PG MCHC 32.8 (30-36) % RDW 16.8 H (11.6-14.8) % Plt Count 287 (150-400) X10^3/uL Neut % (Auto) 86.0 H (50-75) % Lymph % (Auto) 7.2 L (25-40) % [place] % (Auto) 6.2 (3-14) % Eos % (Auto) 0.4 L (2-4) % Baso % (Auto) 0.2 (0-2) % Neut # (Auto) 9400 H (8734-6465) /uL Lymph # (Auto) 800 L (7739-9617) /uL [place] # (Auto) 700 (0-900) /uL Eos # (Auto) 0 (0-450) /uL Baso # (Auto) 0 (0-100) /uL PT 36.1 H (10.1-12.7) SECONDS INR 3.0 H (0.9-1.3) Sodium 139 (137-145) mmol/L Potassium 4.3 (3.4-5.1) mmol/L Chloride 100 (98-107) mmol/L Carbon Dioxide 24 (22-32) mmol/L BUN 21 H (9-20) mg/dL Creatinine 1.40 H (0.66-1.25) mg/dL Estimated GFR 49.7 L (>60) mL/min BUN/Creatinine Ratio 15.0 (6-22) Glucose 199 H (80-110) mg/dL Calcium 8.8 (8.4-10.2) mg/dL Total Bilirubin 1.1 (0.2-1.3) mg/dL AST 49 (17-59) IU/L ALT 32 (21-72) IU/L Alkaline Phosphatase 207 H (38-126) U/L Total Creatine Kinase 130 (55-170) U/L CK-MB (CK-2) 0.44 (<2.37) ng/mL CK-MB (CK-2) Rel Index 0.3 L (1.5-5.0) % Troponin I < 0.012 (0.01-0.034) ng/mL Total Protein 7.8 (6.3-8.2) g/dL Albumin 4.1 (3.5-5.0) g/dL Globulin 3.7 (1.7-4.1) g/dL Albumin/Globulin Ratio 1.1 (1.0-2.8) Imaging Data Shoulder x-ray: Radiologist's impression: PROCEDURE: XR SHOULDER LT MIN 2V INDICATIONS: shoulder injury s/p fall TECHNIQUE: 2 views of the shoulder were acquired. COMPARISON: [facility], CR, XR CHEST 1V, 10/08/2018, 20:00. FINDINGS: Bones: There is a comminuted, displaced fracture of the proximal humerus involving the humeral head and the surgical neck. The acromioclavicular joint appears intact. The glenoid appears intact. Visualized portions of the ribs appear intact. Soft tissues: No suspicious soft tissue calcifications. IMPRESSION: Comminuted, displaced proximal humeral fracture. Dictated by: Winnie Braun M.D. on 05/29/2019 at 15:32 Approved by: Winnie Braun M.D. on 05/29/2019 at 15:33 Discharge Plan Departure Patient Disposition: Home Clinical Impression: Fracture of proximal end of humerus Qualifiers: Encounter type: initial encounter Fracture type: closed Fracture morphology: other fracture Fracture alignment: displaced Laterality: left Qualified Code(s): S42.292A - Other displaced fracture of upper end of left humerus, initial encounter for closed fracture Discharge Date/Time: 05/29/19 17:44 Instructions: DI for Shoulder Fracture Activity Restrictions/Additional Instructions: Your case has been discussed with Dr. Meneses, who would like you to be placed in a shoulder immobilizer for now. You should wear this until you see her in her clinic next week. Please call her the 1st thing tomorrow morning to set up an appointment to be seen next week. You may take Percocet for the pain and use ice packs to help with the swelling. Prescriptions: No Action warfarin [Jantoven] 2.5 mg tablet 2.5 mg PO MOTUTHSA RF: 0 potassium chloride 10 mEq tablet extended release 20 meq PO BID RF: 0 omeprazole 40 mg capsule,delayed release(DR/EC) 40 mg PO DAILY RF: 0 furosemide 20 mg tablet 20 mg PO BID RF: 0 oxycodone 10 mg tablet 10 mg PO TID RF: 0 multivitamin Tablet 1 tab PO DAILY RF: 0 metoprolol succinate 50 mg tablet extended release 24 hr 50 mg PO QPM RF: 0 warfarin [Jantoven] 2.5 mg tablet 1.25 mg PO SUWEFR RF: 0 ferrous sulfate [iron] 325 mg (65 mg iron) Tablet 325 mg PO TID RF: 0 melatonin 5 mg Tablet 5 - 10 mg PO BEDTIME PRN (Reason: Insomnia) RF: 0 Co Q-10 1 cap PO DAILY RF: 0 Stool Softener 1 cap PO BID RF: 0 atorvastatin 80 mg tablet 80 mg PO QPM 90 Days Qty: 90 RF: 0 metoprolol succinate 50 mg tablet extended release 24 hr 25 mg PO QAM 45 Days Qty: 90 RF: 0 escitalopram oxalate 10 mg tablet 10 mg PO DAILY 90 Days Qty: 90 RF: 0 Referrals: Soco Nagel MD [Primary Care Provider] -
[2019-05-29 17:19] VITALS: BP 102/63; PULSE 80; RESP 16; O2SAT 97
[2019-05-29] MEDS: HYDROMORPHONE 0.5 MG INJ IV (17:19)
== END 2019-05-29 17:44 | disposition home or self-care (01) ==
PROVIDERS: Emergency Provider Emergency Medicine; Family Provider Family Medicine; PCP Family Medicine
DX: S42.292A Other displaced fracture of upper end of left humerus, initial encounter for closed fracture (principal); W19.XXXA Unspecified fall, initial encounter
CPT/HCPCS: 36415; 73030; 80053; 82550; 82553; 84484; 85025; 85610; 93005; 96361; 96374; 99283; 99284; 99285; J1170

== ENCOUNTER 2019-10-08 15:12 | Emergency (ER) | payer MEDICARE, BC, SELFPAY ==
[2018-10-08 22:01] VITALS: BMI 31.6
[2019-10-08 15:20] VITALS: BP 113/67; PULSE 98; RESP 18; TEMP 37; O2SAT 99; BMI 30.1
--- NOTE | 2019-10-08 15:25 | ED.LOWEXIN ---
HPI - Extremity Injury (Lower) General Chief Complaint: Fall Stated Complaint: lt ankle injury, high INR Time Seen by Provider: 10/08/19 15:22 Source: patient and family Limitations: no limitations History of Present Illness HPI Narrative: Patient is 74-year-old male who has history of atrial fibrillation presenting with left ankle pain. He says that he tripped over his own feet yesterday and rolled his left ankle. It's quite swollen today he denies any other injury no hip or knee pain he tonight hit his head or lose consciousness. However he does state that use will dizzy and lightheaded prior to arrival which is not uncommon for him. He currently denies dizziness or chest pain. He is noted to be in atrial fibrillation with a heart rate under 100. MD complaint: ankle injury Related Data Home Medications Medication Instructions Recorded Confirmed atorvastatin 80 mg tablet 80 mg PO QPM 90 Days #90 tab 08/08/18 10/08/19 Co Q-10 1 cap PO DAILY 05/29/19 10/08/19 Stool Softener 1 cap PO BID 05/29/19 10/08/19 ferrous sulfate [iron] 325 mg PO TID 05/29/19 10/08/19 furosemide 20 mg PO BID 05/29/19 10/08/19 melatonin 5 - 10 mg PO BEDTIME PRN 05/29/19 10/08/19 metoprolol succinate 50 mg PO BID 05/29/19 10/08/19 multivitamin 1 tab PO DAILY 05/29/19 10/08/19 omeprazole 40 mg PO DAILY 05/29/19 10/08/19 oxycodone 10 mg PO TID 05/29/19 10/08/19 potassium chloride 20 meq PO BID 05/29/19 10/08/19 warfarin [Jantoven] 1.25 mg PO WEFR 05/29/19 10/08/19 warfarin [Jantoven] 2.5 mg PO SUMOTUTHSA 05/29/19 10/08/19 escitalopram oxalate 20 mg PO DAILY 10/08/19 10/08/19 ketoconazole 1 applic TOPICAL PRN PRN 10/08/19 10/08/19 memantine 10 mg PO BID 10/08/19 10/08/19 Allergies Allergy/AdvReac Type Severity Reaction Status Date / Time cyclobenzaprine Allergy Unknown Verified 10/08/19 15:33 [From FLEXERIL] hydrocodone Allergy Verified 10/08/19 15:33 Review of Systems Review of Systems ROS Unobtainable: All systems reviewed & are unremarkable except as noted in HPI and below Constitutional Constitutional: Denies chills, Denies fever(s), Denies lethargy and Denies weakness Eyes Eyes: Denies change in vision, Denies eye discharge, Denies irritation and Denies loss of vision Cardiovascular Cardiovascular: Denies chest pain, Reports irregular heart rhythm, Denies dyspnea and Denies dyspnea on exertion Respiratory Respiratory: Denies cough, Denies dyspnea, Denies dyspnea on exertion and Denies wheezing Gastrointestinal Gastrointestinal: Denies abdominal pain, Denies change in bowel habits, Denies diarrhea, Denies nausea and Denies vomiting Musculoskeletal Musculoskeletal: Denies back pain, Denies muscle weakness, Denies numbness and Denies tingling Integumentary/Breasts Skin/Breast: Denies pruritus, Denies erythema, Denies rash and Denies wounds Neurologic Neurologic: Denies loss of vision, Denies numbness, Denies tingling and Denies weakness Allergic/Immunologic Allergic/Immunologic: Denies wheezing Patient History Medical History Atrial fibrillation, chronic (Acute) Cerebral amyloid angiopathy (Acute) Coronary artery disease (Acute) Current use of longterm anticoagulation (Acute) Former smoker, stopped smoking in distant past (Acute) History of pneumonia (Acute) Hyperlipidemia (Acute) Lumbar stenosis without neurogenic claudication (Acute) Pulmonary hypertension (Acute) Surgical History History of mitral valve replacement with mechanical valve (Acute) History of shoulder surgery (Acute) Status post coronary artery bypass graft (Acute) Family History Father Liver disease Mother Liver cirrhosis, alcoholic Cardiovascular disease Sister History of multiple strokes Sister Cardiovascular disease Pulmonary disease Social History household members: spouse Smoking Status: Former smoker Smoking Status: Former smoker alcohol intake frequency: 0-2 drinks per day Substance Use Type: does not use Exam Initial Vital Signs Initial Vital Signs: Vital Signs Temperature 98.6 F 10/08/19 15:20 Pulse Rate 98 H 10/08/19 15:20 Respiratory Rate 18 10/08/19 15:20 Blood Pressure 113/67 10/08/19 15:20 Pulse Oximetry 99 10/08/19 15:20 GENERAL: Alert male appears older than stated age HEENT: Head atraumatic,EOMI, pupils reactive, face symmetric, [moist] mucous membranes CARDIOVASCULAR: Irregular irregularly irregular no murmur RESPIRATORY: Breath sounds equal bilaterally, no wheezes rales or rhonchi. ABDOMEN: Soft, nontender. Normoactive bowel sounds all 4 quadrants. No guarding or rebound. EXTREMITIES: Normal range of motion, no clubbing or edema. Neurovascularly intact. -left ankle, swelling, no erythema knee and if stable NEUROLOGICAL: Alert and oriented x4.Normal gait and speech. SKIN: Warm, dry, no laceration, no petechiae, no rashes or lesions. Procedures Orthopedic Splinting/Casting Injury #1: Side: left Lower Extremity Injury Location: ankle Lower Extremity Immobilizer: boot orthosis Post splinting neuro exam: intact Post splinting vascular exam: intact Placed by: Nursing Course Orders Ordered: ED Orders 10/08/19 15:30 Complete Blood Count AUTO DIFF Stat Comprehensive Metabolic Panel Stat Partial Thromboplastin Time Stat Prothrombin Time INR Stat 10/08/19 15:32 EKG-12 Lead Routine 10/08/19 15:36 XR ankle LT min 3V Stat Vital Signs Vital signs: Vital Signs - 8 hr 10/08/19 15:20 10/08/19 16:08 10/08/19 17:00 Temperature 98.6 F Pulse Rate 98 H 74 73 Respiratory Rate 18 16 16 Blood Pressure 113/67 Blood Pressure [Left Arm] 131/78 136/74 Pulse Oximetry 99 97 97 MDM - Extremity Injury (Lower) Lab Data Attestation: I reviewed the patient's lab results. Result diagrams: 10/08/19 15:30 10/08/19 15:30 Labs: Lab Results 10/08/19 10/08/19 10/08/19 Range/Units 15:30 15:30 15:30 WBC 7.7 (4.5-11.0) X10^3/uL RBC 4.58 (4.5-5.9) X10^6/uL Hgb 12.5 L (13.5-17.5) g/dL Hct 38.3 L (41-53) % MCV 83.5 (80-100) fL MCH 27.4 (26-34) PG MCHC 32.8 (30-36) % RDW 17.4 H (11.6-14.8) % Plt Count 287 (150-400) X10^3/uL Neut % (Auto) 76.2 H (50-75) % Lymph % (Auto) 13.2 L (25-40) % [place] % (Auto) 8.5 (3-14) % Eos % (Auto) 1.6 L (2-4) % Baso % (Auto) 0.5 (0-2) % Neut # (Auto) 5800 (1732-8631) /uL Lymph # (Auto) 1000 L (3270-3439) /uL [place] # (Auto) 600 (0-900) /uL Eos # (Auto) 100 (0-450) /uL Baso # (Auto) 0 (0-100) /uL PT 55.4 H (10.1-12.7) SECONDS INR 4.7 H* (0.9-1.3) APTT 63 H D (26.4-36.2) SECONDS Sodium 141 (137-145) mmol/L Potassium 4.1 (3.4-5.1) mmol/L Chloride 99 (98-107) mmol/L Carbon Dioxide 31 (22-32) mmol/L BUN 19 (9-20) mg/dL Creatinine 1.50 H (0.66-1.25) mg/dL Estimated GFR 45.7 L (>60) mL/min BUN/Creatinine Ratio 12.7 (6-22) Glucose 120 H (80-110) mg/dL Calcium 9.2 (8.4-10.2) mg/dL Total Bilirubin 1.2 (0.2-1.3) mg/dL AST 52 (17-59) IU/L ALT 35 (<50) IU/L Alkaline Phosphatase 274 H (38-126) U/L Total Protein 9.1 H (6.3-8.2) g/dL Albumin 4.8 (3.5-5.0) g/dL Globulin 4.3 H (1.7-4.1) g/dL Albumin/Globulin Ratio 1.1 (1.0-2.8) Imaging Data Extremity x-ray #1: Radiologist's Impression: PROCEDURE: XR ANKLE LT MIN 3V INDICATIONS: fall yesterday swelling TECHNIQUE: 3 views of the ankle were acquired. COMPARISON: None. FINDINGS: Bones: There is an obliquely oriented fracture that is not significantly displaced involving the lateral malleolus with intra-articular extension. No offset of the ankle mortise is appreciated. Rounded ossific/calcific densities at the tip of the medial malleolus probably related to previous injuries. Soft tissues: There is a tibiotalar joint effusion. Moderate soft tissue swelling about the ankle is present. IMPRESSION: Nondisplaced lateral malleolar fracture. Dictated by: uShas Zhang M.D. on 10/08/2019 at 15:27 ECG Data Attestation: I personally reviewed and interpreted this ECG as follows: Prior ECG tracings: available for review Interpretation: Atrial fibrillation rate [address] changes similar to previous EKG MDM Narrative Medical decision making narrative: Patient frequently has episodes of dizziness and lightheadedness he is currently not dizzy. at bedside states that he has some cognitive impairment. And he certainly does not understand crutches. He has a walker at home which she has been hobbling around on. His he has a nondisplaced distal fibular fracture. He is placed in a walking boot. Recommend follow-up with Orthopedics. Discharge Plan Departure Patient Disposition: Home Clinical Impression: Ankle fracture, left Qualifiers: Encounter type: initial encounter Fracture type: closed Qualified Code(s): S82.892A - Other fracture of left lower leg, initial encounter for closed fracture Discharge Date/Time: 10/08/19 17:27 Instructions: Ankle Fracture Activity Restrictions/Additional Instructions: *You have been diagnosed with left distal fibular fracture *What to do: Wear the boot at all times including while sleeping may weightbear as tolerated, but try not to *Continue to take medications as directed HOLD COUMADIN FOR THE NEXT 2 DAYS AND HAVE INR RECHECKED. TODAY'S LEVEL IS 4.7 Tylenol 650 mg every 4-6 hours if needed for [id number] pain *Follow up with your primary care provider in 2-3 days Call orthopedics tomorrow to schedule follow-up appointment in 1-2 weeks *Return to ER if you should have increasing swelling, pain shortness of breath or any new, worsening or concerning symptoms Prescriptions: No Action warfarin [Jantoven] 2.5 mg tablet 2.5 mg PO AKHILTUTHSA RF: 0 potassium chloride 10 mEq tablet extended release 20 meq PO BID RF: 0 omeprazole 40 mg capsule,delayed release(DR/EC) 40 mg PO DAILY RF: 0 furosemide 20 mg tablet 20 mg PO BID RF: 0 oxycodone 10 mg tablet 10 mg PO TID RF: 0 multivitamin Tablet 1 tab PO DAILY RF: 0 metoprolol succinate 50 mg tablet extended release 24 hr 50 mg PO BID RF: 0 warfarin [Jantoven] 2.5 mg tablet 1.25 mg PO WEFR RF: 0 ferrous sulfate [iron] 325 mg (65 mg iron) Tablet 325 mg PO TID RF: 0 melatonin 5 mg Tablet 5 - 10 mg PO BEDTIME PRN (Reason: Insomnia) RF: 0 Co Q-10 1 cap PO DAILY RF: 0 Stool Softener 1 cap PO BID RF: 0 ketoconazole 2 % cream 1 applic TOPICAL PRN PRN (Reason: rash) RF: 0 escitalopram oxalate 20 mg tablet 20 mg PO DAILY RF: 0 memantine 10 mg tablet 10 mg PO BID RF: 0 atorvastatin 80 mg tablet 80 mg PO QPM 90 Days Qty: 90 RF: 0 Referrals: Soco Nagel MD [Primary Care Provider] -
--- NOTE | 2019-10-08 15:36 | DI.RAD.S_ITS ---
PROCEDURE: XR ANKLE LT MIN 3V INDICATIONS: fall yesterday swelling TECHNIQUE: 3 views of the ankle were acquired. COMPARISON: None. FINDINGS: Bones: There is an obliquely oriented fracture that is not significantly displaced involving the lateral malleolus with intra-articular extension. No offset of the ankle mortise is appreciated. Rounded ossific/calcific densities at the tip of the medial malleolus probably related to previous injuries. Soft tissues: There is a tibiotalar joint effusion. Moderate soft tissue swelling about the ankle is present. IMPRESSION: Nondisplaced lateral malleolar fracture. Dictated by: Suhas Zhang M.D. on 10/08/2019 at 15:27 Approved by: Suhas Zhang M.D. on 10/08/2019 at 15:39
[2019-10-08 15:42] LABS: Add Manual Diff / Slide Review NO; Basophils Absolute Auto 0 /uL (0-100); Basophils Percent Auto 0.5 % (0-2); Eosinophils Absolute Auto 100 /uL (0-450); Eosinophils Percent Auto 1.6 % (2-4); Hematocrit 38.3 % (41-53); Hemoglobin 12.5 g/dL (13.5-17.5); Lymphocytes Absolute Auto 1000 /uL (1100-4500); Lymphocytes Percent Auto 13.2 % (25-40); Mean Corpuscular HGB Conc 32.8 % (30-36); Mean Corpuscular Hemoglobin 27.4 PG (26-34); Mean Corpuscular Volume 83.5 fL (80-100); Monocytes Absolute Auto 600 /uL (0-900); Monocytes Percent Auto 8.5 % (3-14); Neutrophils Absolute Auto 5800 /uL (1500-7000); Neutrophils Percent Auto 76.2 % (50-75); Platelet Count 287 X10^3/uL (150-400); Red Blood Cell Count 4.58 X10^6/uL (4.5-5.9); Red Cell Distribution Width 17.4 % (11.6-14.8); White Blood Cell Count 7.7 X10^3/uL (4.5-11.0)
[2019-10-08 15:48] LABS: PTT Partial Thromboplastin Tim 63 SECONDS (26.4-36.2)
[2019-10-08 15:50] LABS: Alanine Aminotransferase 35 IU/L (<50); Albumin 4.8 g/dL (3.5-5.0); Albumin Globulin Ratio 1.1 (1.0-2.8); Alkaline Phosphatase 274 U/L (38-126); Aspartate Aminotransferase 52 IU/L (17-59); BUN Creatinine Ratio 12.7 (6-22); Bilirubin Total 1.2 mg/dL (0.2-1.3); Blood Urea Nitrogen 19 mg/dL (9-20); Calcium 9.2 mg/dL (8.4-10.2); Carbon Dioxide 31 mmol/L (22-32); Chloride 99 mmol/L (98-107); Estimated Glomerular Filt Rate 45.7 mL/min (>60); Globulin 4.3 g/dL (1.7-4.1); Glucose 120 mg/dL (80-110); HEMOLYSIS < 15 (0-50); Potassium 4.1 mmol/L (3.4-5.1); Sodium 141 mmol/L (137-145); Total Protein 9.1 g/dL (6.3-8.2)
[2019-10-08 15:52] LABS: Prothrombin Time 55.4 SECONDS (10.1-12.7)
[2019-10-08 15:54] LABS: INR 4.7 (0.9-1.3)
[2019-10-08 16:08] VITALS: BP 131/78; PULSE 74; RESP 16; O2SAT 97
[2019-10-08 17:00] VITALS: BP 136/74; PULSE 73; RESP 16; O2SAT 97
--- NOTE | 2019-10-08 17:24 | PC.NURSE ---
Patient with significant swelling to left ankle, ortho boot placed to allow for more swelling. patient unable to use crutches due to dizziness and unsteadiness on feet. Has a walker at home and ok to bear minimal weight per Dr. Toro. I also offered to help them find a scooter from a medical supply store. states their apartment is too small to accomodate a scooter. She states she will help him in the house to the bathroom until he can see Ortho. She also reports she has pain meds for him at home and will contact his PCP if he should need any more.
== END 2019-10-08 17:27 | disposition home or self-care (01) ==
PROVIDERS: Emergency Provider Emergency Medicine; Family Provider Family Medicine; PCP Family Medicine
DX: S82.892A Other fracture of left lower leg, initial encounter for closed fracture (principal); W01.0XXA Fall on same level from slipping, tripping and stumbling without subsequent striking against object, initial encounter
CPT/HCPCS: 36415; 73610; 80053; 85025; 85610; 85730; 93005; 99284; 99285

== ENCOUNTER → 2020-02-17 12:59 | Outpatient (CLI) | payer MEDICARE, BC, SELFPAY ==
[2018-10-08 22:01] VITALS: BMI 31.6
--- NOTE | 2020-02-17 | DI.CT.S_ITS ---
PROCEDURE: CT CHEST WO CON INDICATIONS: Other disorders of lung TECHNIQUE: Noncontrast 5 mm thick sections acquired from the pulmonary apices to the posterior costophrenic angles. 1 mm lung window, 5 mm thick coronal and sagittal and 7 mm axial MIP reformats were then acquired. For radiation dose reduction, the following was used: automated exposure control, adjustment of mA and/or kV according to patient size. COMPARISON: [facility], CT, CT ANGIO CHEST PE, 01/26/2018, 1:11. FINDINGS: Image quality: Excellent. Lungs and pleura: Scattered subsegmental atelectasis and/or scarring. No focal consolidation. Bilateral small pleural effusions with adjacent atelectasis. There is loculated appearance of both of the effusions No pneumothorax. Mediastinum: Heart size is normal. Coronary artery calcifications are present. No pericardial effusion. No mediastinal adenopathy by size criteria. Thoracic aorta and central pulmonary arteries are normal in size. Esophagus is normal in caliber. No hiatal hernia. Bones and chest wall: No suspicious bony lesions. Comminuted appearing right clavicle fracture. Chronic bilateral rib fractures with callus formation. No axillary or supraclavicular adenopathy by size criteria. Thyroid gland unremarkable. Cholecystectomy clips. IMPRESSION: Small bilateral pleural effusions, with loculated appearance and adjacent atelectasis, left greater than right. Both of these appear grossly stable since 01/26/18. Scattered scarring/atelectasis. No definite new focal consolidation. Comminuted right clavicle fracture which appears acute versus subacute. Dictated by: Tee Kim M.D. on 02/17/2020 at 13:42 Approved by: Tee Kim M.D. on 02/17/2020 at 13:51
== END ==
PROVIDERS: Family Provider Family Medicine; PCP Family Medicine; Referring Provider Family Medicine; Visit Provider Family Medicine
DX: J98.4 Other disorders of lung (principal); S42.001A Fracture of unspecified part of right clavicle, initial encounter for closed fracture; I25.10 Atherosclerotic heart disease of native coronary artery without angina pectoris; J90 Pleural effusion, not elsewhere classified; J98.11 Atelectasis
CPT/HCPCS: 71250

== ENCOUNTER 2020-06-04 20:13 | Emergency (ER) | payer MEDICARE, BC, SELFPAY ==
[2018-10-08 22:01] VITALS: BMI 31.6
[2020-06-04] VITALS (14 sets, daily range): BP systolic 101–138; BP diastolic 52–76; PULSE 80–91; RESP 6–20; TEMP 37.1; O2SAT 69–98; BMI 33.0
--- NOTE | 2020-06-04 20:16 | ED.FALL ---
HPI - Fall General Chief Complaint: Syncope Stated Complaint: issues with falling/seizures Time Seen by Provider: 06/04/20 20:16 Source: patient and family Mode of arrival: Wheelchair Limitations: no limitations History of Present Illness HPI Narrative: 74M former smoker with history of Afib, HTN, CHF, CAD, prior valve repair on coumadin presents with multiple episodes of unprovoked syncope over the past few days. He does have a history of this outside of these episodes and has just seen cardiology at and mailed back a quality assurance monitor body yesterday, he does not yet have the results. He denies any medication or dietary change. He states there is no pattern to when his episodes happen. He had two yesterday and saw him after the second. She states his eyes rolled back in his head for about a minute and then her returned back to normal within about a minute or so. He didnt have any shaking or seizure like activity. He denies CP or SOB. He denies head, neck pain. He does have some lower back pain in the midline after his fall. He denies numbness, tingling or weakness. MD complaint: fall Onset (ago): hour(s) Fall from: standing Fall witnessed: no Place fall occurred: home Loss of consciousness: yes Length of LOC: second(s) Prolonged down time: no Symptoms prior to fall: none Location of injury: back Associated symptoms (after fall): other Related Data Home Medications Medication Instructions Recorded Confirmed atorvastatin 80 mg tablet 80 mg PO QPM 90 Days #90 tab 08/08/18 10/08/19 Co Q-10 1 cap PO DAILY 05/29/19 10/08/19 Stool Softener 1 cap PO BID 05/29/19 10/08/19 ferrous sulfate [iron] 325 mg PO TID 05/29/19 10/08/19 furosemide 20 mg PO BID 05/29/19 10/08/19 melatonin 5 - 10 mg PO BEDTIME PRN 05/29/19 10/08/19 metoprolol succinate 50 mg PO BID 05/29/19 10/08/19 multivitamin 1 tab PO DAILY 05/29/19 10/08/19 omeprazole 40 mg PO DAILY 05/29/19 10/08/19 oxycodone 10 mg PO TID 05/29/19 10/08/19 potassium chloride 20 meq PO BID 05/29/19 10/08/19 warfarin [Jantoven] 1.25 mg PO WEFR 05/29/19 10/08/19 warfarin [Jantoven] 2.5 mg PO SUMOTUTHSA 05/29/19 10/08/19 escitalopram oxalate 20 mg PO DAILY 10/08/19 10/08/19 ketoconazole 1 applic TOPICAL PRN PRN 10/08/19 10/08/19 memantine 10 mg PO BID 10/08/19 10/08/19 Allergies Allergy/AdvReac Type Severity Reaction Status Date / Time cyclobenzaprine Allergy Unknown ITCHING Verified 06/04/20 20:33 [From FLEXERIL] hydrocodone Allergy Verified 06/04/20 20:33 Review of Systems Constitutional Constitutional: Denies chills, Denies fatigue, Denies fever(s), Denies frequent falls, Denies lethargy and Denies weakness Eyes Eyes: Denies change in vision, Denies eye discharge, Denies irritation and Denies loss of vision ENT Ears, Nose, Mouth, and Throat: Denies change in voice, Denies dizziness, Denies neck pain, Denies sore throat and Denies throat swelling Cardiovascular Cardiovascular: Denies chest pain, Reports syncope, Denies irregular heart rhythm, Denies lightheadedness, Denies palpitations, Denies dyspnea, Denies dyspnea on exertion and Denies orthopnea Respiratory Respiratory: Denies cough, Denies dyspnea, Denies dyspnea on exertion and Denies wheezing Gastrointestinal Gastrointestinal: Denies abdominal pain, Denies change in bowel habits, Denies diarrhea, Denies nausea and Denies vomiting Musculoskeletal Musculoskeletal: Reports back pain, Denies neck pain and Denies numbness Integumentary/Breasts Skin/Breast: Denies pruritus, Denies erythema, Denies rash and Denies wounds Neurologic Neurologic: Denies behavioral changes, Denies confusion, Denies dizziness, Reports syncope, Denies frequent falls, Denies loss of vision, Denies numbness and Denies weakness Psychiatric Psychiatric: Denies anxiety, Denies behavioral changes, Denies confusion, Denies depression, Denies homicidal ideation and Denies suicidal ideation Endocrine Endocrine: Denies fatigue, Denies flushing and Denies palpitations Hematologic/Lymphatic Hematologic/Lymphatic: Denies easy bruising Allergic/Immunologic Allergic/Immunologic: Denies urticaria, Denies throat swelling and Denies wheezing Patient History Medical History (Updated 06/04/20 @ 23:15 by Jim Diane DO) Atrial fibrillation, chronic (Acute) Cerebral amyloid angiopathy (Acute) Coronary artery disease (Acute) Current use of shelter anticoagulation (Acute) Former smoker, stopped smoking in distant past (Acute) History of pneumonia (Acute) Hyperlipidemia (Acute) Lumbar stenosis without neurogenic claudication (Acute) Pulmonary hypertension (Acute) Surgical History History of mitral valve replacement with mechanical valve (Acute) History of shoulder surgery (Acute) Status post coronary artery bypass graft (Acute) Family History Father Liver disease Mother Liver cirrhosis, alcoholic Cardiovascular disease Sister History of multiple strokes Sister Cardiovascular disease Pulmonary disease Social History household members: spouse Smoking Status: Former smoker Smoking Status: Former smoker alcohol intake frequency: 0-2 drinks per day Substance Use Type: does not use Exam Narrative Exam Narrative: GENERAL: [74] year old patient appears stated age. Well-nourished, well-developed patient, in mild distress. GCS 15 HEAD: Atraumatic. Normocephalic. EYES: Pupils equal round and reactive. Extraocular motions intact. No scleral icterus. No injection or drainage. ENT: Nose without bleeding, purulent drainage. Throat without erythema, tonsillar hypertrophy or exudate. Airway patent. NECK: Trachea midline. Non tender CARDIOVASCULAR: Regular rate and rhythm without murmurs, gallops, or rubs. RESPIRATORY: Clear to auscultation. Breath sounds equal bilaterally. No wheezes, rales, or rhonchi. GASTROINTESTINAL: Abdomen soft, non-tender, nondistended. EXTREMITIES: No edema or joint tenderness. BACK: Mild, midline lower back pain. No saddle anesthesia, step-offs or crepitance NEURO: AOx3. SKIN: No rash or erythema of visible areas Initial Vital Signs Initial Vital Signs: Vital Signs Temperature 98.8 F 06/04/20 20:20 Pulse Rate 91 H 06/04/20 20:20 Respiratory Rate 17 06/04/20 20:20 Blood Pressure 101/59 L 06/04/20 20:20 Pulse Oximetry 97 06/04/20 20:20 Course Orders Ordered: ED Orders 06/04/20 20:23 CT head/brain wo con Stat 06/04/20 20:24 Complete Blood Count AUTO DIFF Stat Comprehensive Metabolic Panel Stat Magnesium Stat NT-proBNP (BNP-Adult 18+) Stat Prothrombin Time INR Stat Troponin & CK Cardiac Panel Stat 06/04/20 20:33 CT lumbar spine wo con Stat 06/04/20 21:42 CT chest abd pel w con Stat 06/04/20 21:49 XR chest 1V Stat 06/04/20 22:11 COVID19 -ED/INPAT/OR/L&D Stat 06/04/20 23:02 Urine Microscopic Stat Sodium Chloride (Normal Saline 0.9%) 1,000 mls @ 150 mls/hr IV CONT RAFFAELE Last Admin: 06/04/20 20:30 Dose: 150 mls/hr Documented by: INDIGO Discontinued Medications Furosemide (Lasix) 40 mg IV NOW ONE Stop: 06/04/20 22:03 Last Admin: 06/04/20 22:14 Dose: 40 mg Documented by: INDIGO Sodium Chloride (Normal Saline 0.9%) 500 mls @ 1,000 mls/hr IV BOLUS ONE Stop: 06/04/20 22:12 Last Infusion: 06/04/20 22:31 Dose: 1,000 mls/hr Documented by: Admin: 06/04/20 21:45 Dose: 1,000 mls/hr Documented by: INDIGO Consultations Consultation #1: call to Cardiology at , Dr. Greene who is in agreement with plan and requests patient be transferred down for treatement Time: 21:37 Vital Signs Vital signs: Vital Signs - 8 hr 06/04/20 20:20 06/04/20 20:26 06/04/20 20:30 Temperature 98.8 F Pulse Rate 91 H 87 82 Pulse Rate [Orthostatic Lying] Pulse Rate [Orthostatic Sitting] Pulse Rate [Orthostatic Standing] Respiratory Rate 17 6 L 18 Blood Pressure 101/59 L 106/57 L Blood Pressure [Orthostatic Lying] Blood Pressure [Orthostatic Sitting] Blood Pressure [Orthostatic Standing] Pulse Oximetry 97 69 L 06/04/20 20:55 06/04/20 21:00 06/04/20 21:30 Temperature Pulse Rate 90 88 88 Pulse Rate [Orthostatic Lying] Pulse Rate [Orthostatic Sitting] Pulse Rate [Orthostatic Standing] Respiratory Rate 19 17 20 Blood Pressure 116/76 109/66 Blood Pressure [Orthostatic Lying] Blood Pressure [Orthostatic Sitting] Blood Pressure [Orthostatic Standing] Pulse Oximetry 97 96 97 06/04/20 21:31 06/04/20 21:32 06/04/20 22:00 Temperature Pulse Rate 82 83 91 H Pulse Rate [Orthostatic Lying] Pulse Rate [Orthostatic Sitting] Pulse Rate [Orthostatic Standing] Respiratory Rate 18 20 12 Blood Pressure 109/58 L 101/52 L Blood Pressure [Orthostatic Lying] Blood Pressure [Orthostatic Sitting] Blood Pressure [Orthostatic Standing] Pulse Oximetry 96 96 96 06/04/20 22:06 Temperature Pulse Rate Pulse Rate [Orthostatic Lying] 89 Pulse Rate [Orthostatic Sitting] 80 Pulse Rate [Orthostatic Standing] 83 Respiratory Rate Blood Pressure Blood Pressure [Orthostatic Lying] 109/66 Blood Pressure [Orthostatic Sitting] 109/58 L Blood Pressure [Orthostatic Standing] 101/52 L Pulse Oximetry MDM - Fall Lab Data Result diagrams: 06/04/20 20:24 06/04/20 20:24 Labs: Lab Results 06/04/20 06/04/20 06/04/20 Range/Units 20:24 20:24 20:24 WBC 8.0 (4.5-11.0) X10^3/uL RBC 4.45 L (4.5-5.9) X10^6/uL Hgb 12.5 L (13.5-17.5) g/dL Hct 39.2 L (41-53) % MCV 88.0 (80-100) fL MCH 28.1 (26-34) PG MCHC 31.9 (30-36) % RDW 18.1 H (11.6-14.8) % Plt Count 277 (150-400) X10^3/uL Neut % (Auto) 71.1 (50-75) % Lymph % (Auto) 13.2 L (25-40) % [place] % (Auto) 10.6 (3-14) % Eos % (Auto) 4.6 H (2-4) % Baso % (Auto) 0.5 (0-2) % Neut # (Auto) 5700 (1873-7767) /uL Lymph # (Auto) 1100 (5245-8146) /uL [place] # (Auto) 800 (0-900) /uL Eos # (Auto) 400 (0-450) /uL Baso # (Auto) 0 (0-100) /uL PT 31.8 H (10.1-12.7) SECONDS INR 2.8 H (0.9-1.3) Sodium 138 (137-145) mmol/L Potassium 4.3 (3.4-5.1) mmol/L Chloride 100 (98-107) mmol/L Carbon Dioxide 32 (22-32) mmol/L BUN 22 H (9-20) mg/dL Creatinine 1.72 H (0.66-1.25) mg/dL Estimated GFR 39.1 L (>60) mL/min BUN/Creatinine Ratio 12.8 (6-22) Glucose 103 (80-110) mg/dL Calcium 9.0 (8.4-10.2) mg/dL Magnesium 2.1 (1.6-2.3) mg/dL Total Bilirubin 1.1 (0.2-1.3) mg/dL AST 179 H (17-59) IU/L ALT 163 H (<50) IU/L Alkaline Phosphatase 1368 H (38-126) U/L Total Creatine Kinase 2136 H (55-170) U/L CK-MB (CK-2) 3.14 H (<2.37) ng/mL CK-MB (CK-2) Rel Index 0.1 L (1.5-5.0) % Troponin I < 0.012 (0.01-0.034) ng/mL NT-Pro-B Natriuret Pep 1490 H (<125) pg/mL Total Protein 8.5 H (6.3-8.2) g/dL Albumin 4.1 (3.5-5.0) g/dL Globulin 4.4 H (1.7-4.1) g/dL Albumin/Globulin Ratio 0.9 L (1.0-2.8) COVID-19 PCR (Negative) 06/04/20 Range/Units 22:11 WBC (4.5-11.0) X10^3/uL RBC (4.5-5.9) X10^6/uL Hgb (13.5-17.5) g/dL Hct (41-53) % MCV (80-100) fL MCH (26-34) PG MCHC (30-36) % RDW (11.6-14.8) % Plt Count (150-400) X10^3/uL Neut % (Auto) (50-75) % Lymph % (Auto) (25-40) % [place] % (Auto) (3-14) % Eos % (Auto) (2-4) % Baso % (Auto) (0-2) % Neut # (Auto) (2302-7701) /uL Lymph # (Auto) (7446-3775) /uL [place] # (Auto) (0-900) /uL Eos # (Auto) (0-450) /uL Baso # (Auto) (0-100) /uL PT (10.1-12.7) SECONDS INR (0.9-1.3) Sodium (137-145) mmol/L Potassium (3.4-5.1) mmol/L Chloride (98-107) mmol/L Carbon Dioxide (22-32) mmol/L BUN (9-20) mg/dL Creatinine (0.66-1.25) mg/dL Estimated GFR (>60) mL/min BUN/Creatinine Ratio (6-22) Glucose (80-110) mg/dL Calcium (8.4-10.2) mg/dL Magnesium (1.6-2.3) mg/dL Total Bilirubin (0.2-1.3) mg/dL AST (17-59) IU/L ALT (<50) IU/L Alkaline Phosphatase (38-126) U/L Total Creatine Kinase (55-170) U/L CK-MB (CK-2) (<2.37) ng/mL CK-MB (CK-2) Rel Index (1.5-5.0) % Troponin I (0.01-0.034) ng/mL NT-Pro-B Natriuret Pep (<125) pg/mL Total Protein (6.3-8.2) g/dL Albumin (3.5-5.0) g/dL Globulin (1.7-4.1) g/dL Albumin/Globulin Ratio (1.0-2.8) COVID-19 PCR Negative (Negative) Point of Care Testing Glucose POC 115 Urine Dip Bedside Urine Glucose Negative Bedside Urine Bilirubin - Negative Bedside Urine Ketone - Negative Urine Specific [place] 1.015 Bedside Urine Occult Blood ++ Bedside Urine pH 6.0 Bedside Urine Protein +/- 15 Bedside Urine Urobilinogen +/- 1mg Bedside Urine Nitrite - Negative Bedside Urine Leukocytes - Negative Esterase Imaging Data CT scan - head: Radiologist's Impression: Chart Viewer Diagnostics DATE TYPE STATUS REF RANGE/AUTHOR Hx 06/04/20 20:33 PinaMarcello 06/04/20 20:23 HellerMarcello 02/17/20 00:00 JulioRuyTee 10/08/19 15:36 VicenteAna Maria gravesSuhas 05/29/19 14:22 KadeWinnie 12/10/18 12:35 Arcelia Esquivel 10/08/18 21:33 10/08/18 19:32 SteffiLewis 01/25/18 16:38 Alan Patricio 74, 11/07/1944 [facility] ER, Main ED R06 172.72cm 98.43kg BMI: 33.0kg/m? Syncope Search Chart No Data to Display ITCHING ONSET Today 20:20 Alan Patricio 74 M 1945 [place] [address] CT Scan Report Signed Patient: Alan Patricio [facility]#: [id number] : 5Acct:[id number] Age/Sex: 74 / MDate of Service: 06/04/20 Loc: ED Accession Number: [id number] Procedure: CT head/brain wo con Ordering Provider: Jim Diane D.O. PROCEDURE: CT HEAD/BRAIN WO CON INDICATIONS: Multiple falls, head injuries, on coumadin TECHNIQUE: Noncontrast 4.5 mm thick angled axial sections acquired from the foramen magnum to the vertex, with coronal and sagittal reformats. For radiation dose reduction, the following was used: automated exposure control, adjustment of mA and/or kV according to patient size. COMPARISON: [facility], CT, HEAD WITHOUT CONTRAST, 01/25/2018, 16:17. FINDINGS: Image quality: Excellent. CSF spaces: Basal cisterns are patent. No extra-axial fluid collections. There is moderate cerebral volume loss, with resultant ventricular and sulcal prominence as well as prominence of the extra-axial spaces redemonstrated. Brain: No intracranial hemorrhage, mass, or mass effect. There are subcortical, periventricular and deep white matter hypodensities consistent with mild chronic small vessel ischemic changes. There is intracranial internal carotid artery atherosclerosis. Skull and face: Calvarium and visualized facial bones appear intact, without suspicious lesions. Sinuses: Visualized sinuses and mastoids are clear. IMPRESSION: 1. No acute intracranial abnormality. 2. Moderate cerebral volume loss and mild chronic white matter small vessel ischemic changes. Dictated by: Marcello Heller M.D. on 06/04/2020 at 21:01 Approved by: Marcello Heller M.D. on 06/04/2020 at 21:03 CT L Spine: Radiologist's Impression: [place] [address] CT Scan Report Signed Patient: Alan Patricio [facility]#: [id number] : 5Acct:[id number] Age/Sex: 74 / MDate of Service: 06/04/20 Loc: ED Accession Number: [id number] Procedure: CT lumbar spine wo con Ordering Provider: Jim Diane D.O. PROCEDURE: CT LUMBAR SPINE WO CON INDICATIONS: fall with lumbar pain TECHNIQUE: Noncontrast 3 mm thick sections acquired from the T12 level to the sacrum. Sagittal and coronal reformats were constructed. For radiation dose reduction, the following was used: automated exposure control. COMPARISON: [facility], , MR LUMBAR SPINE WO CON, 12/10/2018, 13:36. FINDINGS: Image quality: Excellent. Bones: No acute vertebral body compression fractures. No other acute fracture or subluxation. Minimal retrolisthesis redemonstrated at L2-L3, L3-L4, and L5-S1. There are endplate Schmorl's nodes demonstrated throughout the visualized lower thoracic and lumbar spine. T12-L1: No spinal canal or neural foraminal narrowing. L1-L2: Moderate loss of disc height with a small broad-based disc bulge. There is minimal spinal canal narrowing. No neural foraminal narrowing. L2-L3: Moderate loss of disc height with a small posterior disc osteophyte complex. There is mild facet arthropathy. Findings contribute to mild spinal canal narrowing with mild bilateral neural foraminal narrowing. L3-L4: Mild to moderate loss of disc height with a small posterior broad-based disc bulge. There is mild facet arthropathy. Findings contribute to mild spinal canal narrowing with mild to moderate bilateral neural foraminal narrowing. L4-L5: Mild loss of disc height with a small broad-based disc bulge. There is mild facet arthropathy. Findings contribute to mild to moderate spinal canal narrowing with moderate to severe right and moderate left neural foraminal narrowing. There is apparent impingement on the right exiting nerve root. L5-S1: Mild loss of disc height with a small broad-based disc bulge. There is mild facet arthropathy. There is minimal associated spinal canal narrowing. There is mild to moderate bilateral neural foraminal narrowing. Soft tissues: No retroperitoneal masses or hematomas. Visualized aorta is normal in caliber. There is diffuse atherosclerotic vascular calcification. Moderate stool distention is noted within the visualized rectosigmoid colon suggestive of obstipation or impaction. IMPRESSION: 1. No acute fracture or subluxation. 2. Multilevel degenerative changes throughout the lumbar spine as described. This includes moderate to severe right neural foraminal narrowing at L4-5 with apparent impingement on the exiting right nerve root. Dictated by: Marcello Heller M.D. on 06/04/2020 at 21:03 Approved by: Marcello Heller M.D. on 06/04/2020 at 21:10 Chest x-ray: Radiologist's Impression: [address] [address] XRay Report Signed Patient: Alan Patricio [facility]#: [id number] : 5Acct:[id number] Age/Sex: 74 / MDate of Service: 06/04/20 Loc: ED Accession Number: [id number] Procedure: XR chest 1V Ordering Provider: Jim Diane D.O. PROCEDURE: XR CHEST 1V INDICATIONS: acute failure, syncope TECHNIQUE: One view of the chest was acquired. COMPARISON: [facility], CT, CT CHEST WO CON, 02/17/2020, 13:03. [facility], CR, XR CHEST 1V, 10/08/2018, 20:00. FINDINGS: Surgical changes and devices: Postsurgical changes are redemonstrated within the mediastinum. Lungs and pleura: There are low lung volumes. A chronic loculated left basilar pleural fluid collections redemonstrated. Left retrocardiac confluent opacities are demonstrated consistent with atelectasis or consolidation. There is pulmonary edema. Mediastinum: Mediastinal contours appear prominent due to low lung volumes and technique. Heart size is mildly enlarged. Bones and chest wall: A nonacute right clavicular shaft fracture is demonstrated. Overlying soft tissues appear unremarkable. IMPRESSION: 1. Chronic loculated left basilar pleural fluid collection redemonstrated. 2. Bibasilar opacities consistent with atelectasis or consolidation. 3. Pulmonary edema. Dictated by: Marcello Heller M.D. on 06/04/2020 at 22:00 Approved by: Marcello Heller M.D. on 06/04/2020 at 22:03 ECG Data Attestation: I personally reviewed and interpreted this ECG as follows: Prior ECG tracings: not available for review Interpretation: Atrial fibrillation in the mid 60s, no ectopy or signs of ischemia such as ST elevations/depressions or T wave inversions Critical Care Time Critical Care Time Critical Care Time: Yes Total Critical Care Time: 30 Attestation: The high probability of a clinically significant, sudden or life threatening deterioration of the [CV] system(s) required my full and direct attention, intervention and personal management. The aggregate critical care time was [30] minutes. This time is in addition to time spent performing reported procedures but includes the following: [x] Data Review and interpretation [x] Patient assessment and monitoring of vital signs [x] Documentation [x] Medication orders and management Discharge Plan Departure Patient Disposition: [facility] Clinical Impression: Syncope and collapse, Elevated transaminase level Acute CHF Qualifiers: Heart failure type: unspecified Qualified Code(s): I50.9 - Heart failure, unspecified Acute renal failure Qualifiers: Acute renal failure type: unspecified Qualified Code(s): N17.9 - Acute kidney failure, unspecified Prescriptions: No Action warfarin [Jantoven] 2.5 mg tablet 2.5 mg PO SUMOTUTHSA RF: 0 potassium chloride 10 mEq tablet extended release 20 meq PO BID RF: 0 omeprazole 40 mg capsule,delayed release(DR/EC) 40 mg PO DAILY RF: 0 furosemide 20 mg tablet 20 mg PO BID RF: 0 oxycodone 10 mg tablet 10 mg PO TID RF: 0 multivitamin Tablet 1 tab PO DAILY RF: 0 metoprolol succinate 50 mg tablet extended release 24 hr 50 mg PO BID RF: 0 warfarin [Jantoven] 2.5 mg tablet 1.25 mg PO WEFR RF: 0 ferrous sulfate [iron] 325 mg (65 mg iron) Tablet 325 mg PO TID RF: 0 melatonin 5 mg Tablet 5 - 10 mg PO BEDTIME PRN (Reason: Insomnia) RF: 0 Co Q-10 1 cap PO DAILY RF: 0 Stool Softener 1 cap PO BID RF: 0 ketoconazole 2 % cream 1 applic TOPICAL PRN PRN (Reason: rash) RF: 0 escitalopram oxalate 20 mg tablet 20 mg PO DAILY RF: 0 memantine 10 mg tablet 10 mg PO BID RF: 0 atorvastatin 80 mg tablet 80 mg PO QPM 90 Days Qty: 90 RF: 0 Referrals: Wood Peter DO [Primary Care Provider] -
--- NOTE | 2020-06-04 20:23 | DI.CT.S_ITS ---
PROCEDURE: CT HEAD/BRAIN WO CON INDICATIONS: Multiple falls, head injuries, on coumadin TECHNIQUE: Noncontrast 4.5 mm thick angled axial sections acquired from the foramen magnum to the vertex, with coronal and sagittal reformats. For radiation dose reduction, the following was used: automated exposure control, adjustment of mA and/or kV according to patient size. COMPARISON: [facility], CT, HEAD WITHOUT CONTRAST, 01/25/2018, 16:17. FINDINGS: Image quality: Excellent. CSF spaces: Basal cisterns are patent. No extra-axial fluid collections. There is moderate cerebral volume loss, with resultant ventricular and sulcal prominence as well as prominence of the extra-axial spaces redemonstrated. Brain: No intracranial hemorrhage, mass, or mass effect. There are subcortical, periventricular and deep white matter hypodensities consistent with mild chronic small vessel ischemic changes. There is intracranial internal carotid artery atherosclerosis. Skull and face: Calvarium and visualized facial bones appear intact, without suspicious lesions. Sinuses: Visualized sinuses and mastoids are clear. IMPRESSION: 1. No acute intracranial abnormality. 2. Moderate cerebral volume loss and mild chronic white matter small vessel ischemic changes. Dictated by: Marcello Heller M.D. on 06/04/2020 at 21:01 Approved by: Marcello Heller M.D. on 06/04/2020 at 21:03
[2020-06-04] MEDS: SODIUM CHLORIDE 0.9% 1,000 ML 150 ML IV (20:30)
--- NOTE | 2020-06-04 20:33 | DI.CT.S_ITS ---
PROCEDURE: CT LUMBAR SPINE WO CON INDICATIONS: fall with lumbar pain TECHNIQUE: Noncontrast 3 mm thick sections acquired from the T12 level to the sacrum. Sagittal and coronal reformats were constructed. For radiation dose reduction, the following was used: automated exposure control. COMPARISON: [facility], MR, MR LUMBAR SPINE WO CON, 12/10/2018, 13:36. FINDINGS: Image quality: Excellent. Bones: No acute vertebral body compression fractures. No other acute fracture or subluxation. Minimal retrolisthesis redemonstrated at L2-L3, L3-L4, and L5-S1. There are endplate Schmorl's nodes demonstrated throughout the visualized lower thoracic and lumbar spine. T12-L1: No spinal canal or neural foraminal narrowing. L1-L2: Moderate loss of disc height with a small broad-based disc bulge. There is minimal spinal canal narrowing. No neural foraminal narrowing. L2-L3: Moderate loss of disc height with a small posterior disc osteophyte complex. There is mild facet arthropathy. Findings contribute to mild spinal canal narrowing with mild bilateral neural foraminal narrowing. L3-L4: Mild to moderate loss of disc height with a small posterior broad-based disc bulge. There is mild facet arthropathy. Findings contribute to mild spinal canal narrowing with mild to moderate bilateral neural foraminal narrowing. L4-L5: Mild loss of disc height with a small broad-based disc bulge. There is mild facet arthropathy. Findings contribute to mild to moderate spinal canal narrowing with moderate to severe right and moderate left neural foraminal narrowing. There is apparent impingement on the right exiting nerve root. L5-S1: Mild loss of disc height with a small broad-based disc bulge. There is mild facet arthropathy. There is minimal associated spinal canal narrowing. There is mild to moderate bilateral neural foraminal narrowing. Soft tissues: No retroperitoneal masses or hematomas. Visualized aorta is normal in caliber. There is diffuse atherosclerotic vascular calcification. Moderate stool distention is noted within the visualized rectosigmoid colon suggestive of obstipation or impaction. IMPRESSION: 1. No acute fracture or subluxation. 2. Multilevel degenerative changes throughout the lumbar spine as described. This includes moderate to severe right neural foraminal narrowing at L4-5 with apparent impingement on the exiting right nerve root. Dictated by: Marcello Heller M.D. on 06/04/2020 at 21:03 Approved by: Marcello Heller M.D. on 06/04/2020 at 21:10
[2020-06-04 20:46] LABS: Add Manual Diff / Slide Review NO; Basophils Absolute Auto 0 /uL (0-100); Basophils Percent Auto 0.5 % (0-2); Eosinophils Absolute Auto 400 /uL (0-450); Eosinophils Percent Auto 4.6 % (2-4); Hematocrit 39.2 % (41-53); Hemoglobin 12.5 g/dL (13.5-17.5); Lymphocytes Absolute Auto 1100 /uL (1100-4500); Lymphocytes Percent Auto 13.2 % (25-40); Mean Corpuscular HGB Conc 31.9 % (30-36); Mean Corpuscular Hemoglobin 28.1 PG (26-34); Monocytes Absolute Auto 800 /uL (0-900); Monocytes Percent Auto 10.6 % (3-14); Neutrophils Absolute Auto 5700 /uL (1500-7000); Neutrophils Percent Auto 71.1 % (50-75); Platelet Count 277 X10^3/uL (150-400); Red Blood Cell Count 4.45 X10^6/uL (4.5-5.9); Red Cell Distribution Width 18.1 % (11.6-14.8)
--- NOTE | 2020-06-04 20:58 | PC.NURSE ---
lab at bedside for repeat lab draw
[2020-06-04 21:12] LABS: INR 2.8 (0.9-1.3); Prothrombin Time 31.8 SECONDS (10.1-12.7)
[2020-06-04 21:21] LABS: Alanine Aminotransferase 163 IU/L (<50); Albumin 4.1 g/dL (3.5-5.0); Albumin Globulin Ratio 0.9 (1.0-2.8); Aspartate Aminotransferase 179 IU/L (17-59); BUN Creatinine Ratio 12.8 (6-22); Bilirubin Total 1.1 mg/dL (0.2-1.3); Blood Urea Nitrogen 22 mg/dL (9-20); Carbon Dioxide 32 mmol/L (22-32); Chloride 100 mmol/L (98-107); Estimated Glomerular Filt Rate 39.1 mL/min (>60); Globulin 4.4 g/dL (1.7-4.1); Glucose 103 mg/dL (80-110); HEMOLYSIS < 15 (0-50); Magnesium 2.1 mg/dL (1.6-2.3); Potassium 4.3 mmol/L (3.4-5.1); Sodium 138 mmol/L (137-145); Total Protein 8.5 g/dL (6.3-8.2)
[2020-06-04 21:28] LABS: Alkaline Phosphatase 1368 U/L (38-126); Creatine Kinase 2136 U/L (55-170)
[2020-06-04 21:33] LABS: NT-proBNP (BNP-Adult 18+) 1490 pg/mL (<125); Troponin I < 0.012 ng/mL (0.01-0.034)
[2020-06-04] MEDS: SODIUM CHLORIDE 0.9% 500 ML 1000 ML IV (21:45)
--- NOTE | 2020-06-04 21:49 | DI.RAD.S_ITS ---
PROCEDURE: XR CHEST 1V INDICATIONS: acute failure, syncope TECHNIQUE: One view of the chest was acquired. COMPARISON: [facility], CT, CT CHEST WO CON, 02/17/2020, 13:03. [facility], CR, XR CHEST 1V, 10/08/2018, 20:00. FINDINGS: Surgical changes and devices: Postsurgical changes are redemonstrated within the mediastinum. Lungs and pleura: There are low lung volumes. A chronic loculated left basilar pleural fluid collections redemonstrated. Left retrocardiac confluent opacities are demonstrated consistent with atelectasis or consolidation. There is pulmonary edema. Mediastinum: Mediastinal contours appear prominent due to low lung volumes and technique. Heart size is mildly enlarged. Bones and chest wall: A nonacute right clavicular shaft fracture is demonstrated. Overlying soft tissues appear unremarkable. IMPRESSION: 1. Chronic loculated left basilar pleural fluid collection redemonstrated. 2. Bibasilar opacities consistent with atelectasis or consolidation. 3. Pulmonary edema. Dictated by: Marcello Heller M.D. on 06/04/2020 at 22:00 Approved by: Marcello Heller M.D. on 06/04/2020 at 22:03
[2020-06-04 21:51] LABS: CKMB % Relative Index 0.1 % (1.5-5.0); Creatine Kinase MB 3.14 ng/mL (<2.37)
--- NOTE | 2020-06-04 21:56 | PC.NURSE ---
xray at bedside
[2020-06-04] MEDS: FUROSEMIDE 40 MG/4 ML VIAL IV (22:14)
--- NOTE | 2020-06-04 22:30 | PC.NURSE ---
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
[2020-06-04 22:32] LABS: COVID19 -Nasal RAPID Negative (Negative)
[2020-06-04 23:18] LABS: Bacteria Urine Occasional (0-1); Culture Indicated Urine Cult Not Indicated; Hyaline Casts Urine 0-1/LPF; RBC Urine 0-1/HPF (0-5/HPF); WBC Urine 0-1/HPF (0-5/HPF)
== END 2020-06-04 23:53 | disposition short-term general hospital (02) ==
PROVIDERS: Emergency Provider Emergency Medicine; Family Provider Family Medicine; PCP Family Medicine
DX: R74.0 Nonspecific elevation of levels of transaminase and lactic acid dehydrogenase [LDH] (principal); R55 Syncope and collapse; I50.9 Heart failure, unspecified; N17.9 Acute kidney failure, unspecified; I48.91 Unspecified atrial fibrillation; Z79.01 Long term (current) use of anticoagulants
CPT/HCPCS: 36415; 70450; 71045; 72131; 80053; 81003; 81015; 82550; 82553; 82962; 83735; 83880; 84484; 85025; 85610; 87635; 93005; 96361; 96374; 99284; 99291; J1940

== ENCOUNTER 2020-07-29 17:13 | Emergency (ER) | payer MEDICARE, BC, SELFPAY ==
[2018-10-08 22:01] VITALS: BMI 31.6
[2020-07-29] VITALS (14 sets, daily range): BP systolic 103–128; BP diastolic 55–65; PULSE 54–71; RESP 12–21; TEMP 37.2; O2SAT 95–100; BMI 29.9
--- NOTE | 2020-07-29 17:38 | DI.CT.S_ITS ---
PROCEDURE: CT STROKE INDICATIONS: fall, slurred speech, ? on coumadin, decreased activity TECHNIQUE: Noncontrast 4.5 mm thick angled axial sections acquired from the foramen magnum to the vertex, with coronal reformats. For radiation dose reduction, the following was used: automated exposure control, adjustment of mA and/or kV according to patient size. COMPARISON: [facility], CT, CT HEAD/BRAIN WO CON, 06/04/2020, 20:41. FINDINGS: Image quality: Excellent. CSF spaces: Basal cisterns are patent. No extra-axial fluid collections. The ventricles are symmetric in size and shape. Brain: No intracranial bleeds or masses. There is mild cerebral volume loss for age, with resultant ventricular and sulcal prominence. There are mild periventricular and deep white matter chronic small vessel ischemic changes. There is intracranial internal carotid artery atherosclerosis. Skull and face: Calvarium and visualized facial bones appear intact, without suspicious lesions. Sinuses: Visualized sinuses and mastoids are clear. IMPRESSION: 1. No acute intracranial abnormalities. 2. Cerebral volume loss and chronic microvascular ischemic changes. This study fulfills neurological imaging criteria for inclusion or exclusion of acute stroke therapies based on available published neurological guidelines. Dictated by: Esha Scott M.D. on 07/29/2020 at 18:17 Approved by: Esha Scott M.D. on 07/29/2020 at 18:20
[2020-07-29] MEDS: SODIUM CHLORIDE 0.9% 1,000 ML 150 ML IV (18:03)
[2020-07-29 18:44] LABS: Add Manual Diff / Slide Review NO; Basophils Absolute Auto 0 /uL (0-100); Basophils Percent Auto 0.5 % (0-2); Eosinophils Absolute Auto 100 /uL (0-450); Eosinophils Percent Auto 1.6 % (2-4); Hematocrit 34.6 % (41-53); Lymphocytes Absolute Auto 900 /uL (1100-4500); Lymphocytes Percent Auto 10.8 % (25-40); Mean Corpuscular HGB Conc 31.9 % (30-36); Mean Corpuscular Hemoglobin 28.9 PG (26-34); Mean Corpuscular Volume 90.6 fL (80-100); Monocytes Absolute Auto 1000 /uL (0-900); Monocytes Percent Auto 12.5 % (3-14); Neutrophils Absolute Auto 6200 /uL (1500-7000); Neutrophils Percent Auto 74.6 % (50-75); Platelet Count 268 X10^3/uL (150-400); Red Blood Cell Count 3.82 X10^6/uL (4.5-5.9); Red Cell Distribution Width 18.1 % (11.6-14.8); White Blood Cell Count 8.3 X10^3/uL (4.5-11.0)
[2020-07-29 18:51] LABS: INR 4.1 (0.9-1.3); Prothrombin Time 46.4 SECONDS (10.1-12.7)
[2020-07-29 19:09] LABS: PTT Partial Thromboplastin Tim 84 SECONDS (26.4-36.2)
--- NOTE | 2020-07-29 19:41 | ED_ITS ---
HPI - Neuro Symptoms/Deficit General Chief Complaint: Neuro Symptoms/Deficit Stated Complaint: fall, slurred speach Time Seen by Provider: 07/29/20 17:38 Source: patient and family Mode of arrival: Wheelchair Limitations: no limitations History of Present Illness HPI Narrative: Patient is a 74-year-old male arrived by private vehicle after the paramedics were called multiple times to his house today for evaluation. Patient has had issues in the past with balance. Today he was leaning over using his walker and fell forward. He did not hit his head. There was no loss of consciousness. Family members were standing next to him and helped him to the ground. After this event family states that they thought potentially he was slurring his words with that seems to have resolved. They also stated that he was unable to get up off the floor. He has had multiple falls in the past and normally can get up with the help of others and furniture. Has not had any fevers. Was recently transferred from our facility to the [facility] for CHF. Patient was recently started on digoxin which has helped some of the fainting episodes he was having in the past. On Anticoagulants: Yes (coumadin) Related Data Home Medications Medication Instructions Recorded Confirmed atorvastatin 80 mg tablet 80 mg PO QPM 90 Days #90 tab 08/08/18 10/08/19 Co Q-10 1 cap PO DAILY 05/29/19 10/08/19 Stool Softener 1 cap PO BID 05/29/19 10/08/19 ferrous sulfate [iron] 325 mg PO TID 05/29/19 10/08/19 furosemide 20 mg PO BID 05/29/19 10/08/19 melatonin 5 - 10 mg PO BEDTIME PRN 05/29/19 10/08/19 metoprolol succinate 50 mg PO BID 05/29/19 10/08/19 multivitamin 1 tab PO DAILY 05/29/19 10/08/19 omeprazole 40 mg PO DAILY 05/29/19 10/08/19 oxycodone 10 mg PO TID 05/29/19 10/08/19 potassium chloride 20 meq PO BID 05/29/19 10/08/19 warfarin [Jantoven] 1.25 mg PO WEFR 05/29/19 10/08/19 warfarin [Jantoven] 2.5 mg PO SUMOTUTHSA 05/29/19 10/08/19 escitalopram oxalate 20 mg PO DAILY 10/08/19 10/08/19 ketoconazole 1 applic TOPICAL PRN PRN 10/08/19 10/08/19 memantine 10 mg PO BID 10/08/19 10/08/19 Allergies Allergy/AdvReac Type Severity Reaction Status Date / Time cyclobenzaprine Allergy Unknown ITCHING Verified 07/29/20 17:37 [From FLEXERIL] hydrocodone Allergy Verified 07/29/20 17:37 Review of Systems Constitutional Constitutional: Denies fever(s), Reports frequent falls and Denies headache(s) ENT Ears, Nose, Mouth, and Throat: Denies vertigo, Denies headache(s) and Reports disequilibrium Cardiovascular Cardiovascular: Denies chest pain and Denies dyspnea Respiratory Respiratory: Denies dyspnea Gastrointestinal Gastrointestinal: Denies abdominal pain, Denies nausea and Denies vomiting Genitourinary Genitourinary: Denies dysuria Genitourinary: Denies dysuria Musculoskeletal Musculoskeletal: Denies arthralgias, Denies myalgias and Denies tingling Integumentary/Breasts Comments: Jaundice Neurologic Neurologic: Reports confusion, Denies vertigo, Reports frequent falls, Denies headache(s), Denies tingling and Reports disequilibrium Psychiatric Psychiatric: Denies anxiety and Reports confusion Hematologic/Lymphatic Comments: On Coumadin Allergic/Immunologic Allergic/Immunologic: Denies urticaria Patient History Medical History Atrial fibrillation, chronic (Acute) Cerebral amyloid angiopathy (Acute) Coronary artery disease (Acute) Current use of detention anticoagulation (Acute) Former smoker, stopped smoking in distant past (Acute) History of pneumonia (Acute) Hyperlipidemia (Acute) Lumbar stenosis without neurogenic claudication (Acute) Pulmonary hypertension (Acute) Surgical History History of mitral valve replacement with mechanical valve (Acute) History of shoulder surgery (Acute) Status post coronary artery bypass graft (Acute) Family History Father Liver disease Mother Liver cirrhosis, alcoholic Cardiovascular disease Sister History of multiple strokes Sister Cardiovascular disease Pulmonary disease Social History household members: spouse Smoking Status: Former smoker Smoking Status: Former smoker alcohol intake frequency: holidays/special occasions only Substance Use Type: does not use Exam Initial Vital Signs Initial Vital Signs: Vital Signs Temperature 98.9 F 07/29/20 17:13 Pulse Rate 71 07/29/20 17:13 Respiratory Rate 17 07/29/20 17:13 Blood Pressure 114/55 L 07/29/20 17:13 Pulse Oximetry 95 07/29/20 17:13 Const General: cooperative, comfortable and well developed Limitations: mental status not altered HENID Head: normal to inspection and normocephalic Eyes Other: Scleral icterus Resp Effort & Inspection: normal respiratory effort Auscultation: clear to auscultation bilaterally Cardio Rate: bradycardic Rhythm: abnormal rhythm Pulses: radial pulses present GI Inspection: non-distended Palpation: soft Skin Other: Jaundiced Neuro General: patient alert and patient awake Speech: speech normal Sensory Exam: no sensory deficits noted Extrem General: capillary refill normal and No edema Psych Appearance: grossly normal and well kempt Scores GCS [place] coma scale eye opening: Spontaneous Eloisa coma scale verbal response: Orientated [place] coma scale motor response: Obey commands Eloisa coma scale total score: 15 NIH Stroke Scale Level of Conciousness: Alert, keenly responsive Ask month/age: Answers both questions correctly. Open/close eyes, close hand: Performs both tasks correctly Best gaze horizontal: Normal Visual chris: No visual loss Facial palsy: Normal symetrical movement Left arm drift: No drift for full 10 sec Right arm drift: No drift for full 10 sec Left leg drift: No drift for full 5 sec Right leg drift: No drift for full 5 sec Limb ataxia: Absent Sensory on face/arms/legs: Normal, no sensory loss Best language: No aphasia, normal Dysarthria: Normal Extinction or inattention: No abnormality Total NIH Stroke scale score: 0 Course Orders Ordered: ED Orders 07/29/20 17:28 EKG-12 Lead Stat 07/29/20 17:38 CT Stroke Stat Urine Drug Screen, Rapid Stat 07/29/20 17:46 Complete Blood Count AUTO DIFF Stat Partial Thromboplastin Time Stat Prothrombin Time INR Stat 07/29/20 19:10 Basic Metabolic Panel Stat Digoxin Stat Hepatic (Liver) Panel Stat Troponin & CK Cardiac Panel Stat 07/29/20 20:45 Acetaminophen Stat Ammonia (NH3) Stat Ethanol (ETOH) Stat Hepatitis Acute Panel Stat NT-proBNP (BNP-Adult 18+) Stat 07/29/20 21:40 COVID19 -ED/INPAT/OR/L&D Stat Sodium Chloride (Normal Saline 0.9%) 1,000 mls @ 150 mls/hr IV CONT RAFFAELE Last Admin: 07/29/20 18:03 Dose: 150 mls/hr Documented by: JENNIFER Vital Signs Vital signs: Vital Signs - 8 hr 07/29/20 17:13 07/29/20 18:50 07/29/20 19:00 Temperature 98.9 F Pulse Rate 71 62 63 Respiratory Rate 17 16 16 Blood Pressure 114/55 L Pulse Oximetry 95 98 97 07/29/20 19:28 07/29/20 19:30 07/29/20 20:00 Temperature Pulse Rate 69 63 56 L Respiratory Rate 17 17 21 Blood Pressure 113/64 103/60 Pulse Oximetry 98 97 97 07/29/20 20:30 07/29/20 21:00 07/29/20 21:30 Temperature Pulse Rate 59 L 54 L 57 L Respiratory Rate 13 12 14 Blood Pressure 112/59 L 119/58 L 118/62 Pulse Oximetry 97 97 97 07/29/20 22:00 07/29/20 22:01 07/29/20 22:30 Temperature Pulse Rate 60 58 L 66 Respiratory Rate 13 12 14 Blood Pressure 124/65 Pulse Oximetry 97 97 96 07/29/20 23:00 Temperature Pulse Rate 62 Respiratory Rate 17 Blood Pressure 114/62 Pulse Oximetry 97 MDM - Neuro Symptoms/Deficit Medical Records Attestation: I reviewed the patient's medical records. Lab Data Attestation: I reviewed the patient's lab results. Result diagrams: 07/29/20 17:46 07/29/20 19:10 Labs: Lab Results 07/29/20 07/29/20 07/29/20 Range/Units 17:46 17:46 19:10 WBC 8.3 (4.5-11.0) X10^3/uL RBC 3.82 L (4.5-5.9) X10^6/uL Hgb 11.0 L (13.5-17.5) g/dL Hct 34.6 L (41-53) % MCV 90.6 (80-100) fL MCH 28.9 (26-34) PG MCHC 31.9 (30-36) % RDW 18.1 H (11.6-14.8) % Plt Count 268 (150-400) X10^3/uL Neut % (Auto) 74.6 (50-75) % Lymph % (Auto) 10.8 L (25-40) % Mathews % (Auto) 12.5 (3-14) % Eos % (Auto) 1.6 L (2-4) % Baso % (Auto) 0.5 (0-2) % Neut # (Auto) 6200 (7037-2614) /uL Lymph # (Auto) 900 L (4673-8567) /uL Mathews # (Auto) 1000 H (0-900) /uL Eos # (Auto) 100 (0-450) /uL Baso # (Auto) 0 (0-100) /uL PT 46.4 H (10.1-12.7) SECONDS INR 4.1 H (0.9-1.3) APTT 84 H* D (26.4-36.2) SECONDS Sodium 136 L (137-145) mmol/L Potassium 4.8 (3.4-5.1) mmol/L Chloride 108 H (98-107) mmol/L Carbon Dioxide 21 L (22-32) mmol/L BUN 16 (9-20) mg/dL Creatinine 1.74 H (0.66-1.25) mg/dL Estimated GFR 38.5 L (>60) mL/min BUN/Creatinine Ratio 9.2 (6-22) Glucose 155 H (80-110) mg/dL Calcium 8.1 L (8.4-10.2) mg/dL Total Bilirubin (0.2-1.3) mg/dL Conjugated Bilirubin (0.0-0.3) md/dL Unconjugated Bilirubin (0.0-1.1) mg/dL AST (17-59) IU/L ALT (<50) IU/L Alkaline Phosphatase (38-126) U/L Ammonia (9-30) umol/L Total Creatine Kinase (55-170) U/L CK-MB (CK-2) (<2.37) ng/mL CK-MB (CK-2) Rel Index (1.5-5.0) % Troponin I (0.01-0.034) ng/mL NT-Pro-B Natriuret Pep (<125) pg/mL Total Protein (6.3-8.2) g/dL Albumin (3.5-5.0) g/dL Globulin (1.7-4.1) g/dL Albumin/Globulin Ratio (1.0-2.8) Digoxin (0.8-2.0) ng/mL Acetaminophen (10-30) ug/mL Ethyl Alcohol ( - 10) mg/dL COVID-19 PCR (Negative) 07/29/20 07/29/20 07/29/20 Range/Units 19:10 19:10 19:10 WBC (4.5-11.0) X10^3/uL RBC (4.5-5.9) X10^6/uL Hgb (13.5-17.5) g/dL Hct (41-53) % MCV (80-100) fL MCH (26-34) PG MCHC (30-36) % RDW (11.6-14.8) % Plt Count (150-400) X10^3/uL Neut % (Auto) (50-75) % Lymph % (Auto) (25-40) % Mathews % (Auto) (3-14) % Eos % (Auto) (2-4) % Baso % (Auto) (0-2) % Neut # (Auto) (7339-5118) /uL Lymph # (Auto) (3185-9685) /uL Mathews # (Auto) (0-900) /uL Eos # (Auto) (0-450) /uL Baso # (Auto) (0-100) /uL PT (10.1-12.7) SECONDS INR (0.9-1.3) APTT (26.4-36.2) SECONDS Sodium (137-145) mmol/L Potassium (3.4-5.1) mmol/L Chloride (98-107) mmol/L Carbon Dioxide (22-32) mmol/L BUN (9-20) mg/dL Creatinine (0.66-1.25) mg/dL Estimated GFR (>60) mL/min BUN/Creatinine Ratio (6-22) Glucose (80-110) mg/dL Calcium (8.4-10.2) mg/dL Total Bilirubin 7.3 H (0.2-1.3) mg/dL Conjugated Bilirubin 3.6 H (0.0-0.3) md/dL Unconjugated Bilirubin 1.2 H (0.0-1.1) mg/dL AST 441 H (17-59) IU/L ALT 179 H (<50) IU/L Alkaline Phosphatase 1842 H (38-126) U/L Ammonia (9-30) umol/L Total Creatine Kinase 7171 H (55-170) U/L CK-MB (CK-2) 10.00 H (<2.37) ng/mL CK-MB (CK-2) Rel Index 0.1 L (1.5-5.0) % Troponin I 0.040 H (0.01-0.034) ng/mL NT-Pro-B Natriuret Pep (<125) pg/mL Total Protein 8.0 (6.3-8.2) g/dL Albumin 3.6 (3.5-5.0) g/dL Globulin 4.4 H (1.7-4.1) g/dL Albumin/Globulin Ratio 0.8 L (1.0-2.8) Digoxin 1.1 (0.8-2.0) ng/mL Acetaminophen (10-30) ug/mL Ethyl Alcohol ( - 10) mg/dL COVID-19 PCR (Negative) 07/29/20 07/29/20 07/29/20 Range/Units 20:45 20:45 20:45 WBC (4.5-11.0) X10^3/uL RBC (4.5-5.9) X10^6/uL Hgb (13.5-17.5) g/dL Hct (41-53) % MCV (80-100) fL MCH (26-34) PG MCHC (30-36) % RDW (11.6-14.8) % Plt Count (150-400) X10^3/uL Neut % (Auto) (50-75) % Lymph % (Auto) (25-40) % Mathews % (Auto) (3-14) % Eos % (Auto) (2-4) % Baso % (Auto) (0-2) % Neut # (Auto) (8649-0213) /uL Lymph # (Auto) (6140-0699) /uL Mathews # (Auto) (0-900) /uL Eos # (Auto) (0-450) /uL Baso # (Auto) (0-100) /uL PT (10.1-12.7) SECONDS INR (0.9-1.3) APTT (26.4-36.2) SECONDS Sodium (137-145) mmol/L Potassium (3.4-5.1) mmol/L Chloride (98-107) mmol/L Carbon Dioxide (22-32) mmol/L BUN (9-20) mg/dL Creatinine (0.66-1.25) mg/dL Estimated GFR (>60) mL/min BUN/Creatinine Ratio (6-22) Glucose (80-110) mg/dL Calcium (8.4-10.2) mg/dL Total Bilirubin (0.2-1.3) mg/dL Conjugated Bilirubin (0.0-0.3) md/dL Unconjugated Bilirubin (0.0-1.1) mg/dL AST (17-59) IU/L ALT (<50) IU/L Alkaline Phosphatase (38-126) U/L Ammonia 39 H (9-30) umol/L Total Creatine Kinase (55-170) U/L CK-MB (CK-2) (<2.37) ng/mL CK-MB (CK-2) Rel Index (1.5-5.0) % Troponin I (0.01-0.034) ng/mL NT-Pro-B Natriuret Pep 1320 H (<125) pg/mL Total Protein (6.3-8.2) g/dL Albumin (3.5-5.0) g/dL Globulin (1.7-4.1) g/dL Albumin/Globulin Ratio (1.0-2.8) Digoxin (0.8-2.0) ng/mL Acetaminophen < 10 L (10-30) ug/mL Ethyl Alcohol < 10 ( - 10) mg/dL COVID-19 PCR (Negative) 07/29/20 Range/Units 21:40 WBC (4.5-11.0) X10^3/uL RBC (4.5-5.9) X10^6/uL Hgb (13.5-17.5) g/dL Hct (41-53) % MCV (80-100) fL MCH (26-34) PG MCHC (30-36) % RDW (11.6-14.8) % Plt Count (150-400) X10^3/uL Neut % (Auto) (50-75) % Lymph % (Auto) (25-40) % Mathews % (Auto) (3-14) % Eos % (Auto) (2-4) % Baso % (Auto) (0-2) % Neut # (Auto) (6499-7432) /uL Lymph # (Auto) (5056-3877) /uL Mathews # (Auto) (0-900) /uL Eos # (Auto) (0-450) /uL Baso # (Auto) (0-100) /uL PT (10.1-12.7) SECONDS INR (0.9-1.3) APTT (26.4-36.2) SECONDS Sodium (137-145) mmol/L Potassium (3.4-5.1) mmol/L Chloride (98-107) mmol/L Carbon Dioxide (22-32) mmol/L BUN (9-20) mg/dL Creatinine (0.66-1.25) mg/dL Estimated GFR (>60) mL/min BUN/Creatinine Ratio (6-22) Glucose (80-110) mg/dL Calcium (8.4-10.2) mg/dL Total Bilirubin (0.2-1.3) mg/dL Conjugated Bilirubin (0.0-0.3) md/dL Unconjugated Bilirubin (0.0-1.1) mg/dL AST (17-59) IU/L ALT (<50) IU/L Alkaline Phosphatase (38-126) U/L Ammonia (9-30) umol/L Total Creatine Kinase (55-170) U/L CK-MB (CK-2) (<2.37) ng/mL CK-MB (CK-2) Rel Index (1.5-5.0) % Troponin I (0.01-0.034) ng/mL NT-Pro-B Natriuret Pep (<125) pg/mL Total Protein (6.3-8.2) g/dL Albumin (3.5-5.0) g/dL Globulin (1.7-4.1) g/dL Albumin/Globulin Ratio (1.0-2.8) Digoxin (0.8-2.0) ng/mL Acetaminophen (10-30) ug/mL Ethyl Alcohol ( - 10) mg/dL COVID-19 PCR Negative (Negative) Imaging Data CT scan - head: Radiologist's Impression: [address] [address] [address] Scan Report Signed Patient: Alan Patricio [facility]#: [id number] : 5Acct:[id number] Age/Sex: 74 / MDate of Service: 07/29/20 Loc: ED Accession Number: [id number] Procedure: CT Stroke Ordering Provider: Claribel Shields D.O. PROCEDURE: CT STROKE INDICATIONS: fall, slurred speech, ? on coumadin, decreased activity TECHNIQUE: Noncontrast 4.5 mm thick angled axial sections acquired from the foramen magnum to the vertex, with coronal reformats. For radiation dose reduction, the following was used: automated exposure control, adjustment of mA and/or kV according to patient size. COMPARISON: [facility], CT, CT HEAD/BRAIN WO CON, 06/04/2020, 20:41. FINDINGS: Image quality: Excellent. CSF spaces: Basal cisterns are patent. No extra-axial fluid collections. The ventricles are symmetric in size and shape. Brain: No intracranial bleeds or masses. There is mild cerebral volume loss for age, with resultant ventricular and sulcal prominence. There are mild periventricular and deep white matter chronic small vessel ischemic changes. There is intracranial internal carotid artery atherosclerosis. Skull and face: Calvarium and visualized facial bones appear intact, without suspicious lesions. Sinuses: Visualized sinuses and mastoids are clear. IMPRESSION: 1. No acute intracranial abnormalities. 2. Cerebral volume loss and chronic microvascular ischemic changes. This study fulfills neurological imaging criteria for inclusion or exclusion of acute stroke therapies based on available published neurological guidelines. Dictated by: Esha Scott M.D. on 07/29/2020 at 18:17 Approved by: Esha Scott M.D. on 07/29/2020 at 18:20 ECG Data Attestation: I personally reviewed and interpreted this ECG as follows: Prior ECG tracings: not available for review Interpretation: Atrial fibrillation Ventricular rate is 65 Normal axis Normal QRS Normal QTC Nonspecific ST T wave changes MDM Narrative Medical decision making narrative: Patient has a nonfocal neurologic exam. His digoxin level was within normal limits. Does have an elevation in his bilirubin and LFTs which appears to be new. Kidney function is also at baseline per the labs we have in our system. His head CT shows no acute pathology. NIH score of 0. Unsure if patient had just a syncopal episode versus TIA versus is bradycardia/hypotension. Also unsure the etiology of his liver issues. He does not drink alcohol. Tylenol level was 0. I did discuss the case with Dr. Olivas with medicine here at this hospital who felt that the patient should be transferred to a facility that had GI/neurology/Cardiology. The patient's bucket chucker and neurologist served with the [facility] system. I did discuss the case with Dr. Stratton with Internal Medicine at [facility] who accepts patient in transfer. Discussed transfer with the patient. Patient is stable for transfer. Discharge Plan Departure Patient Disposition: [facility] Clinical Impression: Atrial fibrillation with slow ventricular response, Supratherapeutic INR, Hyperbilirubinemia, Acute kidney injury Prescriptions: No Action warfarin [Jantoven] 2.5 mg tablet 2.5 mg PO SUMOTUTHSA RF: 0 potassium chloride 10 mEq tablet extended release 20 meq PO BID RF: 0 omeprazole 40 mg capsule,delayed release(DR/EC) 40 mg PO DAILY RF: 0 furosemide 20 mg tablet 20 mg PO BID RF: 0 oxycodone 10 mg tablet 10 mg PO TID RF: 0 multivitamin Tablet 1 tab PO DAILY RF: 0 metoprolol succinate 50 mg tablet extended release 24 hr 50 mg PO BID RF: 0 warfarin [Jantoven] 2.5 mg tablet 1.25 mg PO WEFR RF: 0 ferrous sulfate [iron] 325 mg (65 mg iron) Tablet 325 mg PO TID RF: 0 melatonin 5 mg Tablet 5 - 10 mg PO BEDTIME PRN (Reason: Insomnia) RF: 0 Co Q-10 1 cap PO DAILY RF: 0 Stool Softener 1 cap PO BID RF: 0 ketoconazole 2 % cream 1 applic TOPICAL PRN PRN (Reason: rash) RF: 0 escitalopram oxalate 20 mg tablet 20 mg PO DAILY RF: 0 memantine 10 mg tablet 10 mg PO BID RF: 0 atorvastatin 80 mg tablet 80 mg PO QPM 90 Days Qty: 90 RF: 0 Referrals: Wood Peter DO [Primary Care Provider] -
[2020-07-29 19:45] LABS: BUN Creatinine Ratio 9.2 (6-22); Blood Urea Nitrogen 16 mg/dL (9-20); Calcium 8.1 mg/dL (8.4-10.2); Carbon Dioxide 21 mmol/L (22-32); Chloride 108 mmol/L (98-107); Digoxin 1.1 ng/mL (0.8-2.0); Estimated Glomerular Filt Rate 38.5 mL/min (>60); Glucose 155 mg/dL (80-110); Sodium 136 mmol/L (137-145)
[2020-07-29 19:46] LABS: HEMOLYSIS 74 (0-50); Potassium 4.8 mmol/L (3.4-5.1)
[2020-07-29 20:08] LABS: Creatine Kinase 7171 U/L (55-170)
[2020-07-29 20:11] LABS: Alanine Aminotransferase 179 IU/L (<50); Albumin 3.6 g/dL (3.5-5.0); Albumin Globulin Ratio 0.8 (1.0-2.8); Aspartate Aminotransferase 441 IU/L (17-59); Bilirubin Conjugated 3.6 md/dL (0.0-0.3); Bilirubin Total 7.3 mg/dL (0.2-1.3); Bilirubin Unconjugated 1.2 mg/dL (0.0-1.1); Globulin 4.4 g/dL (1.7-4.1)
[2020-07-29 20:12] LABS: HEMOLYSIS 74 (0-50)
[2020-07-29 20:28] LABS: Alkaline Phosphatase 1842 U/L (38-126)
[2020-07-29 20:29] LABS: CKMB % Relative Index 0.1 % (1.5-5.0)
[2020-07-29 21:10] LABS: Ammonia (NH3) 39 umol/L (9-30)
[2020-07-29 21:11] LABS: Acetaminophen < 10 ug/mL (10-30); Ethanol (ETOH) < 10 mg/dL
[2020-07-29 21:20] LABS: NT-proBNP (BNP-Adult 18+) 1320 pg/mL (<125)
[2020-07-29 22:01] LABS: COVID19 -Nasal RAPID Negative (Negative)
[2020-07-29 23:38] LABS: Bacteria Urine None Seen; WBC Urine None Seen (0-5/HPF)
[2020-07-29 23:45] LABS: UR Morphine/Opiate cutoff 300 Negative (Negative); Ur Creatinine Normal (Normal); Ur Specific Gravity Normal (Normal); Urine Amphetamines Negative (Negative); Urine Barbiturates Negative (Negative); Urine Benzodiazepines Negative (Negative); Urine Cocaine Negative (Negative); Urine MDMA Negative (Negative); Urine Methadone Negative (Negative); Urine Methamphetamines Negative (Negative); Urine Oxycodone Positive (Negative); Urine Phencyclidine Negative (Negative); Urine Tetrahydrocannabinol Positive (Negative); Urine Tricyclic Antidepressant Negative (Negative); Urine pH Normal (Normal)
[2020-07-29 23:47] LABS: Amorphous Sediment Urine 1+; RBC Urine 0-1/HPF (0-5/HPF)
[2020-07-29 23:48] LABS: Culture Indicated Urine Cult Not Indicated
[2020-07-31 04:41] LABS: HBsAg Screen Negative (Negative); Hepatitis A Antibody IgM Negative (Negative); Hepatitis B Core Antibody IgM Negative (Negative); Hepatitis C Antibody <0.1 s/co ratio (0.0-0.9)
== END 2020-07-30 00:17 | disposition short-term general hospital (02) ==
PROVIDERS: Emergency Medicine; Emergency Provider Emergency Medicine; Family Provider Family Medicine; PCP Family Medicine
DX: I48.91 Unspecified atrial fibrillation (principal); Z79.01 Long term (current) use of anticoagulants; N17.9 Acute kidney failure, unspecified; R79.1 Abnormal coagulation profile; E80.6 Other disorders of bilirubin metabolism; I50.9 Heart failure, unspecified; R47.81 Slurred speech; R29.6 Repeated falls; R41.0 Disorientation, unspecified
CPT/HCPCS: 36415; 70450; 80048; 80074; 80076; 80162; 80305; 80320; 80329; 81003; 81015; 82140; 82550; 82553; 83880; 84484; 85025; 85610; 85730; 87635; 93005; 93010; 96360; 96361; 99285; G0480